=== PATIENT | male | born 1965 | race Caucasian/White ===

== ENCOUNTER 2024-05-05 09:39 | Inpatient (IN) | payer SELFPAY ==
[2024-05-05] VITALS (11 sets, daily range): BP systolic 177–236; BP diastolic 75–128; PULSE 53–60; RESP 18–20; TEMP 36.5–36.7; O2SAT 92–98
--- NOTE | 2024-05-05 10:34 | XRR_ITS ---
PROCEDURE INFORMATION: Exam: XR Chest Exam date and time: 05/05/2024 10:37 AM Age: 58 years old Clinical indication: Other: Edema TECHNIQUE: Imaging protocol: Radiologic exam of the chest. Views: 1 view. COMPARISON: No relevant prior studies available. FINDINGS: Lungs: There are bilateral perihilar and basilar infiltrates in a relatively symmetric distribution. Findings suspicious for pulmonary edema. Pleural spaces: There may be trace pleural effusions. No pneumothorax is identified. Heart/Mediastinum: The heart is enlarged. Suspect retrocardiac hiatal hernia. Bones/joints: Unremarkable. XR/XR chest 1V portable [id number] IMPRESSION: 1. Cardiomegaly with probable mild edema and small pleural effusions. 2. Suspect retrocardiac hiatal hernia.
--- NOTE | 2024-05-05 10:49 | ECG_ITS ---
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 Measurements Intervals [place] Rate: 54 P: -10 WV: 188 QRS: 58 QRSD: 133 T: 55 QT: 445 QTc: 425 Interpretive Statements SINUS BRADYCARDIA WITH OCCASIONAL VENTRICULAR PREMATURE COMPLEXES INTRAVENTRICULAR CONDUCTION DELAY [130+ ms QRS DURATION] ANTEROLATERAL MYOCARDIAL INFARCTION , OF INDETERMINATE AGE Low voltage in limb leads No previous ECG available for comparison Electronically Signed On 05-05-2024 16:51:25 CDT by Telma Ivory M.D. [email or web address]
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
--- NOTE | 2024-05-05 10:57 | USCV_ITS ---
Hector Whitaker Age: 58 Gender: M : 1965 Exam Date: 05/05/2024 11:24 Ordering Phys: Ranulfo Lomeli DO Technologist: NANDA [place]am [place] [facility] [place] Indication: LE Edema and Swelling HISTORY: Lower extremity swelling. Lower extremity edema. PROCEDURES: Venous duplex imaging was performed in bilateral lower extremities. The following venous structures were evaluated: common femoral vein, profunda vein, proximal portion of the greater saphenous vein, superficial femoral vein, and the popliteal vein. In addition, the posterior tibial and peroneal trunk were evaluated. Serial compression, augmentation maneuvers, and spectral Doppler flow evaluation were performed. FINDINGS: Technically limited 2-D Doppler and augmentation and compressibility throughout the lower extremity venous structures. Additional imaging through the proximal calf veins also reveals no thrombus. Limited evaluation of the greater saphenous vein is patent with no thrombus. Subcutaneous edema. CONCLUSIONS No DVT bilateral lower extremities. Dr. Melissa Acuña DO (Electronically Signed) Final Date: 05 May 2024 12:40 S
--- NOTE | 2024-05-05 10:57 | XRR_ITS ---
PROCEDURE INFORMATION: Exam: XR Right Foot Exam date and time: 05/05/2024 11:05 AM Age: 58 years old Clinical indication: Edema; Location not specified; Additional info: Trauma TECHNIQUE: Imaging protocol: Radiologic exam of the right foot. Views: 3 or more views. COMPARISON: No relevant prior studies available. FINDINGS: Bones/joints: There is an old-appearing fracture involving the proximal 2nd metatarsal which appears to involve the joint space. There are degenerative changes with joint space narrowing and small osteophytes involving the midfoot, 1st MTP joint and 1st IP joint. Joint spaces are otherwise relatively well preserved. Soft tissues: There is dorsal soft tissue swelling. Heterotopic ossification is seen within the plantar soft tissues. XR/XR foot RT min 3V* [id number] IMPRESSION: 1. Fracture involving the proximal 2nd metatarsal. However, this fracture appears to be old. Recommend clinical correlation. No additional fractures are noted. 2. Osteoarthritis. 3. Soft tissue swelling.
[2024-05-05] MEDS: hyDRALAzine 20 mg/mL INJ 1 mL 10 MG IVP (11:30)
[2024-05-05] MEDS: FUROsemide 10 mg/mL SDV 4mL 40 MG IVP ×2 (11:32→14:25)
[2024-05-05 12:41] LABS: Basophils # 0.1 10^3/uL (0.0-0.1); Eosinophils # 0.1 10^3/uL (0.0-0.8); Hematocrit 35.2 % (37-53); Lymphocytes % 19.2 %; Mean Corpuscular HGB Conc 31.8 g/dL (30-55); Mean Corpuscular Hemoglobin 29.8 pg (27-33); Mean Corpuscular Volume 93.6 fl (82-101); Mean Platelet Volume 10.8 fL (7.4-10.4); Monocytes # 0.5 10^3/uL (0.2-0.9); Monocytes % 10.3 %; Neutrophils # 3.52 10^3/uL (1.8-7.7); Neutrophils % 68.3 %; Nucleated Red Blood Cells % 0 %; Platelet Count 255 10^3/cmm (157-399); Red Blood Count 3.76 10^6/uL (3.85-5.65); Red Cell Distribution Width 14.6 % (12.1-15.1); White Blood Count 5.15 10^3/uL (3.29-11.43)
[2024-05-05 13:15] LABS: Alanine Aminotransferase 12 U/L (0-41); Albumin Level 2.7 g/dL (3.5-5.2); Alkaline Phosphatase 88 U/L (40-130); Anion Gap 13.7 (5-19); Aspartate Amino Transferase 15 U/L (0-40); Blood Urea Nitrogen 22 mg/dL (8-23); Carbon Dioxide 28 mmol/L (22-29); Chloride 105 mmol/L (98-107); Creatine Phosphokinase 151 U/L (39-308); Globulin 2.6 g/dL (1.3-4.6); Glomerular Filtration Rate 47.7 mL/min (90-130); Glucose 84 mg/dL (65-115); Osmolality Calculated 299 mOsm/kg (285-295); Potassium 3.7 mmol/L (3.5-5.1); Sodium 143 mmol/L (136-145); Total Bilirubin 0.5 mg/dL (0.15-1.2); Total Protein 5.3 g/dL (6.6-8.7)
[2024-05-05 13:42] LABS: NT Pro B Type Natriuretic Pept 45094 pg/mL (0-125)
--- NOTE | 2024-05-05 13:59 | USCV_ITS ---
Hector Whitaker Age: 58 Gender: M : 1965 Exam Date: 05/05/2024 14:52 Ordering Phys: Ranulfo Lomeli DO Technologist: Exam Location: [facility] – [place] Indication: chf BP: 123 / 73 HR: 58 Rhythm: Sinus Technical Quality: Adequate MEASUREMENTS (Male / Female) Normal Values 2D ECHO LV Diastolic Diameter PLAX 5.3 cm 4.2 - 5.9 / 3.9 - 5.3 cm IVS Diastolic Thickness 1.4 cm 0.6 - 1.0 / 0.6 - 0.9 cm IVS Systolic Thickness 2.0 cm LVPW Diastolic Thickness 1.4 cm 0.6 - 1.0 / 0.6 - 0.9 cm LVPW Systolic Thickness 1.9 cm LVOT Diameter 2.2 cm LV Ejection Fraction 2D Teich 63.0 % LV Ejection Fraction MOD 4C 43.6 % LV Ejection Fraction MOD 2C 38.0 % LV Ejection Fraction 2C AL 38.1 % LA Diameter 4.6 cm RA Systolic Volume 4C AL 57.3 ml RA Systolic Volume 4C MOD 57.8 ml Aorta at Sinotubular Diameter 2.7 cm DOPPLER AV Peak Velocity 155.0 cm/s LVOT Peak Velocity 66.0 cm/s AV Area Cont Eq vti 1.9 cm squared AV Area Cont Eq pk 1.6 cm squared MV Area PHT 3.6 cm squared Mitral E to A Ratio 0.8 TV Peak Velocity 157.0 cm/s TR Peak Velocity 173.0 cm/s TR Peak Gradient 12.0 mmHg TV Peak E Velocity 71.0 cm/s Right Atrial Pressure 3.0 mmHg Pulmonary Artery Systolic Pressu 15.0 mmHg PV Peak Velocity 95.0 cm/s FINDINGS Left Ventricle Mild left ventricular hypertrophy. Moderate global hypokinesis. Estimated LVEF 35 to 40%. Right Ventricle Normal right ventricular size and systolic function. Right Atrium Normal right atrial size. Left Atrium Dilated left atrium. Mitral Valve Structurally normal mitral valve. Mild to moderate mitral regurgitation. Aortic Valve Structurally normal trileaflet aortic valve. No aortic valve stenosis. Tricuspid Valve Structurally normal tricuspid valve. Trace tricuspid valve regurgitation. Pulmonic Valve Structurally normal pulmonic valve. Trace pulmonary valve regurgitation. Pericardium Small circumferential pericardial effusion. Aorta Normal size aortic root and proximal ascending aorta. IVC Inferior vena cava not well visualized. CONCLUSIONS Mild left ventricular hypertrophy. Moderate global hypokinesis with estimated LVEF 35 to 40%. Mild to moderate mitral regurgitation. Dilated left atrium. Small circumferential pericardial effusion. Telma Ivory MD (Electronically Signed) Final Date: 05 May 2024 16:03 S
--- NOTE | 2024-05-05 14:00 | US_ITS ---
WS: [id number] RIGHT UPPER QUADRANT ULTRASOUND HISTORY: assess for cirrhosis COMPARISON: None available. Liver: 20.4 cm in length. Liver is enlarged and poorly visualized. There is a large amount of shadowi ng to the liver. There is hepatic steatosis with a small hyperdense mass along the surface of the RIG HT lobe of the liver measuring 2.1 x 1.4 x 1.8 cm. Surface of the liver is slightly irregular. Portal Vein: Normal hepatopetal flow with monophasic waveform. Gallbladder: Normally distended gallbladder with no stones or wall thickening. CBD: 0.4 cm Pancreas: Completely obscured by bowel gas. Right kidney: 13.3 cm in length. Normal size and echogenicity. No hydronephrosis or mass. Aorta and IVC: Not visualized. Very small amount of ascites adjacent to the liver. Small RIGHT pleural effusion. US/US liver [id number] IMPRESSION: 1. Technically limited evaluation of the RIGHT upper quadrant. 2. Negative gallbladder. 3. Small amount of ascites and a small RIGHT pleural effusion. 4. Liver is enlarged with cirrhotic changes. 5. Hyperechoic mass RIGHT lobe of the liver measures 2.1 x 1.4 x 1.8 cm. Most likely is small hemangioma.
--- NOTE | 2024-05-05 14:04 | ECG_ITS ---
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 Measurements Intervals [place] Rate: 55 P: 52 ID: [id number] QRS: -18 QRSD: 134 T: 70 QT: 442 QTc: 426 Interpretive Statements SINUS BRADYCARDIA INTRAVENTRICULAR CONDUCTION DELAY ANTEROSEPTAL MYOCARDIAL INFARCTION , OF INDETERMINATE AGE Compared to ECG 05/05/2024 10:49:00 Ventricular premature complex(es) no longer present Myocardial infarct finding still present Electronically Signed On 05-05-2024 18:06:52 CDT by Telma Ivory M.D. [email or web address]
[2024-05-05] MEDS: enoxaparin 40 mg/0.4 mL Syringe SUBCUT (14:24)
[2024-05-05] MEDS: amlodipine 10 mg Tablet PO (14:25)
[2024-05-05 14:51] LABS: Troponin(5th) Baseline 145 ng/L (0-15)
[2024-05-05 15:17] LABS: Bilirubin Urine Negative (Negative); Blood Urine Trace (Negative); Glucose Urine UA Negative (Normal); Ketones Urine Negative (Negative); Leukocyte Esterase Urine Negative (Negative); Nitrate Urine Negative (Negative); Protein Urine 3+ (Negative); Specific Gravity, Urine 1.012 (1.005-1.030); Urine Appearance Clear (CLEAR); Urine Color Yellow (Yellow); Urobilinogen Urine 0.2 mg/dL (Negative); pH Urine 5.5 (5-7)
--- NOTE | 2024-05-05 15:24 | PC.NURSE ---
This nurse took report from DESIRAE Oliveira in ER at 1524.
[2024-05-05 15:25] LABS: Estmated Average Glucose 143; Hemoglobin A1C 6.6 % (4.0-6.0)
[2024-05-05 15:31] LABS: Chol HDL Ratio 3.67 mg/dL (1.0-5.00); Cholesterol 158 mg/dL (0-200); HDL Cholesterol 43 mg/dL (60-100); LDL Cholesterol Calculated 98 mg/dL (50-129); LDL HDL Ratio 2.28 RATIO (0.00-3.22); Thyroid Stimulating Hormone 16.91 uIU/mL (0.27-4.20); Triglycerides 83 mg/dL (0-150)
[2024-05-05 15:33] LABS: UA Manual Slide Review YES; UA Slide Review UA Slide Review Perf
[2024-05-05 15:36] LABS: Add Urine Culture? No; Add Urine Microscopic? YES; Hyaline Casts Urine 0-4 /lpf; Mucus Urine TRACE /hpf; WBC Urine RARE /hpf (0-5)
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
[2024-05-05 16:41] LABS: Bilirubin Urine Negative (Negative); Blood Urine Trace (Negative); Glucose Urine UA Negative (Normal); Ketones Urine Negative (Negative); Leukocyte Esterase Urine Negative (Negative); Nitrate Urine Negative (Negative); Protein Urine 3+ (Negative); Urine Appearance Clear (CLEAR); Urine Color Yellow (Yellow); Urobilinogen Urine 0.2 mg/dL (Negative); pH Urine 5.5 (5-7)
[2024-05-05 16:59] LABS: UA Manual Slide Review YES; UA Slide Review UA Slide Review Perf
[2024-05-05 17:00] LABS: Add Urine Culture? No; Add Urine Microscopic? YES; Mucus Urine TRACE /hpf; RBC Urine 0-4 /hpf (0-2)
[2024-05-05 19:03] LABS: Troponin 5 2HR 157.7 ng/L (0-15); Troponin 5 2HR Delta 12.7 ABS# (0-10)
--- NOTE | 2024-05-05 20:04 | ECG_ITS ---
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 Measurements Intervals [place] Rate: 56 P: 97 ID: [id number] QRS: -49 QRSD: 129 T: 117 QT: 447 QTc: 433 Interpretive Statements SINUS BRADYCARDIA Left bundle branch block Wilbert-septal myocardial infarction, likely old findings Compared to ECG 05/05/2024 14:12:11 Myocardial infarct finding still present Electronically Signed On 05-06-2024 12:17:26 CDT by Telma Ivory M.D. [id number]
[2024-05-05 21:41] LABS: Troponin 5 6HR 164.2 ng/L (0-15)
[2024-05-05 21:42] LABS: Troponin 5 6HR Delta 19.2 ng/L (0-12)
[2024-05-06] VITALS: BP 173/70; PULSE 55; RESP 17; TEMP 36.8; O2SAT 96
[2024-05-06] MEDS: hyDRALAzine 20 mg/mL INJ 1 mL 10 MG IVP (01:17)
[2024-05-06] MEDS: FUROsemide 10 mg/mL SDV 4mL 40 MG IVP ×2 (01:17→14:24)
[2024-05-06 04:00] VITALS: BP 160/68; PULSE 53; RESP 16; TEMP 36.8; O2SAT 94
[2024-05-06 05:59] LABS: Basophils # 0.1 10^3/uL (0.0-0.1); Basophils % 2.1 %; Eosinophils # 0.2 10^3/uL (0.0-0.8); Eosinophils % 2.8 %; Hematocrit 32.6 % (37-53); Lymphocytes # 1.1 10^3/uL (0.8-4.8); Lymphocytes % 20.5 %; Mean Corpuscular HGB Conc 31.6 g/dL (30-55); Mean Corpuscular Hemoglobin 29.9 pg (27-33); Mean Corpuscular Volume 94.5 fl (82-101); Mean Platelet Volume 11.2 fL (7.4-10.4); Monocytes # 0.7 10^3/uL (0.2-0.9); Monocytes % 12.2 %; Neutrophils # 3.31 10^3/uL (1.8-7.7); Neutrophils % 62.2 %; Nucleated Red Blood Cells % 0 %; Platelet Count 264 10^3/cmm (157-399); Red Blood Count 3.45 10^6/uL (3.85-5.65); Red Cell Distribution Width 14.7 % (12.1-15.1); White Blood Count 5.32 10^3/uL (3.29-11.43)
[2024-05-06 06:25] LABS: Alanine Aminotransferase 11 U/L (0-41); Albumin Level 2.5 g/dL (3.5-5.2); Alkaline Phosphatase 83 U/L (40-130); Anion Gap 10.6 (5-19); Aspartate Amino Transferase 14 U/L (0-40); Blood Urea Nitrogen 23 mg/dL (8-23); Calcium 8.1 mg/dL (8.5-10.5); Carbon Dioxide 31 mmol/L (22-29); Chloride 105 mmol/L (98-107); Creatinine Clr Calc Pharmacy 63.6383; Glomerular Filtration Rate 44.3 mL/min (90-130); Glucose 114 mg/dL (65-115); Osmolality Calculated 301 mOsm/kg (285-295); Potassium 3.6 mmol/L (3.5-5.1); Sodium 143 mmol/L (136-145); Total Bilirubin 0.3 mg/dL (0.15-1.2); Total Protein 4.5 g/dL (6.6-8.7)
[2024-05-06 06:33] LABS: Free T4 Free Thyroxine 0.85 ng/dL (0.82-1.77); T3 Free 1.1 PG/ML (2.0-4.4)
[2024-05-06 07:34] VITALS: BP 160/76; PULSE 56; RESP 17; TEMP 37.3; O2SAT 91
[2024-05-06] MEDS: pantoprazole DR 40 mg Tablet PO (10:05)
[2024-05-06] MEDS: amlodipine 10 mg Tablet PO (10:05)
--- NOTE | 2024-05-06 11:30 | P.PN_ITS ---
Subjective 2 Subjective: patient doing minimally better today. Vitals/I&O/Wt Last Vital Signs Temp 99.1 F 05/06/24 07:34 Pulse 56 L 05/06/24 07:34 Resp 17 05/06/24 07:34 BP 160/76 05/06/24 07:34 Pulse Ox 91 05/06/24 07:34 O2 Del Method Room Air 05/06/24 07:34 05/05/24 05/06/24 05/06/24 22:59 06:59 14:59 Intake Total 480 / 480 240 / 720 240 / 240 Output Total 700 / 700 1650 / 2350 Balance -220 / -220 -1410 / -1630 240 / 240 Weight last 48 hrs Weight 116.148 kg Weight 117.934 kg Physical Exam 2 Narrative: Patient is alert and oriented no acute distress. Patient has diffuse anasarca including upper extremities and chest. Heart is regular distant no loud murmur Lungs decreased breath sounds bilateral lower lung rosenthal. With a few crackles with inspiration Abdomen is distended with fluid no palpable hepatosplenomegaly normal bowel sounds no rebound rigidity or tenderness Extremities lower extremities with +2 pitting edema actually worse in thigh abdomen region upper extremities nonpitting edema Data 05/06/24 05:09 05/06/24 05:09 Other data: Echo shows EF of 35 to 40%, left atrial dilatation, moderate mitral regurgitation, small pericardial effusion A&P Assessment and plan (1) New onset of congestive heart failure: Will need to rule out ischemic congestive heart failure. Consult to cardiology was placed in the computer however I was unable to speak with the cotton seed culler on-call. Will continue to try. Suspect will require cardiac catheterization Otherwise patient will be placed on aspirin BURT inhibitor or statin patient not able to tolerate beta-blockade at this time due to bradycardia. And of course continue diuresis (2) Anasarca: Diuresing Lasix 40 IV twice daily patient with satisfactory diuresis over the last day of 1.6 L will continue. Will evaluate for need for increased dosing or adding other diuretics (3) Fracture of second metatarsal bone of right foot: Patient in splint (4) Hypertension: Will start BURT inhibitor for CHF/hypertension (5) Proteinuria: 24-hour urine being collected (6) Hypercholesterolemia with hypertriglyceridemia: Start statin Plan Patient will require a few midnight for satisfactory diuresis as well as cardiology consult for possible cardiac catheterization. Attestations 2 Medical Necessity Statement*: Patient with new onset congestive heart failure of unknown etiology. Patient requires workup and treatment to avoid further deterioration including arrhythmias sudden cardiac worsening organ failure. Patient will require greater than 2 midnight stay. Coding Level of Care Code Acute Code for g Fwd Diagnoses New onset of congestive heart failure I50.9 Anasarca R60.1 Fracture of second metatarsal bone of right foot S92.321A Hypertension I10 Proteinuria R80.9 Hypercholesterolemia with hypertriglyceridemia E78.2
[2024-05-06 11:45] VITALS: BP 173/82; PULSE 55; RESP 16; TEMP 37.1; O2SAT 96
--- NOTE | 2024-05-06 11:49 | P.CONIM_ITS ---
Providers/Reason For Consult 2 Consulting Physician/Specialty*: Keon Lowe.P.MLily/podiatry Reason for Consult*: Right midfoot fracture Attending Physician: Tuan Suarez DO History of Present Illness History of Present Illness Hector Whitaker is a 58 year old male who sustained an injury to his right foot approximately 2 months ago. He presented to the emergency department with significant lower extremity swelling. Workup revealed new onset congestive heart failure. Further workup of the right lower extremity revealed fracture dislocation of the right foot. In discussing the onset of right foot pain with patient he states that the injury occurred 2 months ago when he was helping his brother change the truck bed onto [employer]. The truck x-ray ended up running over his right foot. He has continued to walk on it over the course of the past couple of months. He has had waxing and waning swelling of the right lower extremity. Podiatry was consulted to establish care and to provide further treatment recommendations. Review of Systems 2 General: Reports: 10 or more systems reviewed and unremarkable except in HPI and below Const: Denies: fever(s), chills or fatigue Eyes: Denies: change in vision ENMT: Denies: sinus pain Card: Denies: chest pain, palpitations or lightheadedness Resp: Denies: dyspnea GI: Denies: abdominal pain, nausea or vomiting Musc: Reports: extremity pain, extremity swelling and limited range of motion; Denies: neck pain or back pain Skin/Breast: Reports: skin swelling Neuro: Denies: numbness in extremities Medications/Allergies Home Medications Medication Instructions Recorded Confirmed Last Taken Type multivitamin with minerals 1 tab PO DAILY 05/05/24 05/05/24 05/04/24 History Allergies Allergy/AdvReac Type Severity Reaction Status Date / Time bee venom protein (honey bee) Allergy ALGY-Swell Verified 05/05/24 11:30 Lip/Tongue/Throat Current Medications Generic Name Dose Route Start Last Admin Trade Name Freq PRN Reason Stop Dose Admin Amlodipine Besylate 10 mg 05/05/24 14:10 05/06/24 10:05 Amlodipine 10 Mg Tablet PO 10 mg DAILY JUJU Administration Enoxaparin Sodium 40 mg 05/05/24 14:00 05/05/24 14:24 Enoxaparin 40 Mg/0.4 Ml Syringe SUBCUT 40 mg Q24H JUJU Administration Furosemide 40 mg 05/05/24 14:00 05/06/24 01:17 Furosemide 10 Mg/Ml Sdv 4ml IVP 40 mg Q12H JUJU Administration Hydralazine HCl 10 mg 05/05/24 15:58 05/06/24 01:17 Hydralazine 20 Mg/Ml Inj 1 Ml IVP 10 mg Q6H PRN Administration SBP > 170 Vitals/I&O/Wt Last Vital Signs Temp 98.8 F 05/06/24 11:45 Pulse 55 L 05/06/24 11:45 Resp 16 05/06/24 11:45 BP 173/82 05/06/24 11:45 Pulse Ox 96 05/06/24 11:45 O2 Del Method Room Air 05/06/24 11:45 05/05/24 05/06/24 05/06/24 22:59 06:59 14:59 Intake Total 480 / 480 240 / 720 240 / 240 Output Total 700 / 700 1650 / 2350 Balance -220 / -220 -1410 / -1630 240 / 240 Weight last 48 hrs Weight 256 lb 1 oz Weight 260 lb Physical Exam 2 Narrative: BELOW IS A FOCUSED LOWER EXTREMITY EXAM GENERAL: A&O x 3 VASCULAR: DP/PT pulses palpable 2/4 with CFT intact, <3seconds to distal digits. Edema bilateral lower extremities DERMATOLOGICAL: Skin turgor and temperature is within normal limits. No interdigital maceration noted. MUSCULOSKELETAL: No pain with palpation of right midfoot or Lisfranc interval. NEUROLOGICAL: Neurological sensation to the affected foot and ankle is present through L4-S1 dermatomes with no hyper/hypoesthesias, negative Tinel or Valleix's sign IMAGING: X-ray right foot taken the emergency department person interpreted by me which shows fracture at the base of the first and second metatarsals as well as to the proximal phalanx of the right hallux. CT scan shows Lisfranc fracture dislocation with 4.5 mm lateral displacement of second metatarsal. Data 05/06/24 05:09 05/07/24 11:14 A&P Assessment and plan (1) Lisfranc dislocation: Plan -Right foot Lisfranc fracture dislocation, nonunion, nonpainful -Labs and vitals reviewed -VSS -Diet: Okay for diet -Pain Mgmt: Per primary team -Weight bearing: Weightbearing as tolerated to right foot in cam boot -Discharge plan: Patient is okay to discharge home from podiatry standpoint, weightbearing as tolerated to right foot in cam boot. Recommend follow-up within 1 week of discharge to discuss treatment options further in the outpatient setting. Coding Level of Care Code Acute Code for Chg Fwd Diagnoses Lisfranc dislocation S93.326A
--- NOTE | 2024-05-06 11:51 | CT_ITS ---
WS: [id number] CT RIGHT FOOT, NONCONTRAST HISTORY: Lisfranc Injury Technique: All CT scans at [facility] use at least one of these dose optimization techniques: automated exposure control; mA and/or kV adjustment per patient size (includes targeted exams where dose is matched to clinical indication); or iterative reconstruction. DLP: 145.18 mGy.cm COMPARISON: Radiograph 05/05/2024 Complex fracture mid RIGHT foot. Margins of the fracture are becoming sclerotic but nonunion at sever al locations. Fractures are centered at the first and second tarsal metatarsal articulations. First cuneiform: Partially healed fracture involving the articular surface with the first metatarsal. There are small osseous fragments in the first tarsal metatarsal joint. The alignment with the first metatarsal appears appropriate. First metatarsal: Fracture with erosion involving the proximal lateral articular surface. There are s mall osseous densities and fragments between the proximal first and second metatarsals. There is an a dditional osseous fragment more medially at the level of the joint space which is well-corticated. I believe the donor site is from the metatarsal. Intermediate cuneiform: Fracture involving the distal articular surface. Fragments are well-corticate d. There are multiple fragments surrounding the articular surface. The second metatarsal is just slig htly laterally displaced with respect to the second cuneiform and the first metatarsal. Second metatarsal: Nonhealed fracture with displacement through the proximal second metatarsal. Fract ure is displaced laterally 4.5 mm. There is widening of the first metatarsophalangeal articulation. No additional fractures are identified. Mild degenerative changes at the first IP joint. Extensive ca llus formation noted extending along the second metatarsal metaphysis into the diaphysis. Moderate amount of soft tissue edema surrounding the foot. CT/CT foot RT wo con* [id number] IMPRESSION: 1. 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 Fractures are c entered at the first and second cuneiforms and the first and second metatarsals . 2. Lateral displacement of the second metatarsal by 4.5 mm. Consistent with Li sfranc injury. 3. There are multiple osseous fragments surrounding the first and second cunei forms and the proximal first and second metatarsals. Displaced fragments of bon e extend along the plantar and dorsal, medial and lateral surfaces.
[2024-05-06] MEDS: lisinopril 10 mg Tablet PO (12:33)
[2024-05-06] MEDS: enoxaparin 40 mg/0.4 mL Syringe SUBCUT (14:25)
[2024-05-06 16:00] VITALS: BP 171/71; PULSE 52; RESP 18; TEMP 37.1; O2SAT 98
[2024-05-06 19:16] LABS: Urine Total Protein 159.4 mg/dL (0-150)
[2024-05-06 19:19] LABS: Total Volume, Urine 2300 mL; Urine Total Protein 24 Hour 3666.2 mg/24hr (0-150)
[2024-05-06 19:56] VITALS: BP 134/90; PULSE 54; RESP 18; TEMP 36.6; O2SAT 96
[2024-05-06] MEDS: atorvastatin 40 mg Tablet 80 MG PO (20:02)
[2024-05-07] VITALS (9 sets, daily range): BP systolic 153–197; BP diastolic 64–97; PULSE 50–74; RESP 10–17; TEMP 36.6–36.9; O2SAT 92–96
[2024-05-07] MEDS: FUROsemide 10 mg/mL SDV 4mL 40 MG IVP ×2 (01:16→11:23)
--- NOTE | 2024-05-07 09:00 | P.CONIM_ITS ---
Providers/Reason For Consult 2 Consulting Physician/Specialty*: Cardiology/Dr. Ivory Reason for Consult*: Heart failure/markedly volume overload Requesting Physician: Dr. Suarez Attending Physician: Tuan Suarez DO History of Present Illness History of Present Illness Hector Whitaker is a 58 year old male with a long history of hypertension, with a couple month history of gradually swelling of both lower extremities and worsening shortness of air. On admission he found to be in anasarca with markedly volume overloaded. His blood pressure poorly controlled. Clinically no signs symptom suggestive of angina. He has not orthopnea and PND symptoms. Symptoms have worsened in the last week or so. No acute ischemic EKG changes. Echo showed LVEF around 40% with global hypokinesis. Mildly elevated, flat, cardiac troponin is likely secondary to heart failure rather than acute coronary syndrome. Since admission patient has been started on diuretics with reasonable response. Note his blood pressure somewhat still remains elevated in spite of multiple medications and he still has a significant volume overload. Review of Systems 2 Narrative: Detailed 10 point systemic review revealed gradual worsening of his swelling of both lower extremities as well as upper extremities, around his belly at least for the last 2 months. Denies any resting or exertional chest pain. He had an injury to his right foot about 2 months ago and most of his symptoms have started afterwards. Rest of the systemic review unremarkable except for as mentioned above in the history of present illness. Medications/Allergies Home Medications Medication Instructions Recorded Confirmed Last Taken Type multivitamin with minerals 1 tab PO DAILY 05/05/24 05/05/24 05/04/24 History Allergies Allergy/AdvReac Type Severity Reaction Status Date / Time bee venom protein (honey bee) Allergy ALGY-Swell Verified 05/05/24 11:30 Lip/Tongue/Throat Current Medications Generic Name Dose Route Start Last Admin Trade Name Freq PRN Reason Stop Dose Admin Amlodipine Besylate 10 mg 05/05/24 14:10 05/06/24 10:05 Amlodipine 10 Mg Tablet PO 10 mg DAILY JUJU Administration Atorvastatin Calcium 80 mg 05/06/24 21:00 05/06/24 20:02 Atorvastatin 40 Mg Tablet PO 80 mg BEDTIME JUJU Administration Enoxaparin Sodium 40 mg 05/05/24 14:00 05/06/24 14:25 Enoxaparin 40 Mg/0.4 Ml Syringe SUBCUT 40 mg Q24H JUJU Administration Furosemide 40 mg 05/05/24 14:00 05/07/24 01:16 Furosemide 10 Mg/Ml Sdv 4ml IVP 40 mg Q12H JUJU Administration Hydralazine HCl 10 mg 05/05/24 15:58 05/06/24 01:17 Hydralazine 20 Mg/Ml Inj 1 Ml IVP 10 mg Q6H PRN Administration SBP > 170 Lisinopril 10 mg 05/06/24 11:25 05/06/24 12:33 Lisinopril 10 Mg Tablet PO 10 mg DAILY JUJU Administration Vitals/I&O/Wt Last Vital Signs Temp 97.9 F 05/07/24 07:45 Pulse 53 L 05/07/24 07:45 Resp 17 05/07/24 07:45 BP 157/81 05/07/24 07:45 Pulse Ox 94 05/07/24 07:45 O2 Del Method Room Air 05/07/24 07:45 05/06/24 05/07/24 05/07/24 22:59 06:59 14:59 Intake Total 240 / 840 240 / 240 Output Total 800 / 800 300 / 1100 500 / 500 Balance -560 / 40 -300 / -260 -260 / -260 Weight last 48 hrs Weight 262 lb Weight 256 lb 1 oz Weight 260 lb Physical Exam 2 Narrative: Patient is laying in his bed with head and raised at 60 degrees. He is not in any respiratory distress at rest. Const: COMMON NORMALS: no acute distress, patient oriented x3 and alert O THER: Overweight and with marked swelling of upper and lower extremities. HENMT: OTHER: Normal Eye: OTHER: Grossly normal Chest: COMMONS NORMALS: normal inspection of the chest OTHER: No tenderness across chest. There is an pitting edema on the back of his lower chest. Resp: OTHER: Air entry is reduced at the bases bilaterally. No added sounds. Cardio: OTHER: Difficult to assess jugular venous pulsation, normal first and second heart sounds. No added sounds. GI: OTHER: Abdomen is obese however soft nontender. There is pitting edema on the lateral abdominal olivia. Bowel sounds audible normal. Extremity: OTHER: Bilateral pitting edema up to thighs 2+ at least. Difficult to palpate the pulses. Neuro: COMMON NORMALS: patient oriented x3 SENSORIUM/ORIENTATION: Yes alert OTHER: Grossly intact. Patient moves all 4 limbs. Skin: OTHER: Warm and dry. Data 05/06/24 05:09 05/06/24 05:09 A&P Assessment and plan (1) Anasarca: 58-year-old male patient with a long history of poorly controlled hypertension now with markedly volume overload, congestive heart failure with an LVEF of 40%. Clinically no angina. Significantly volume overload, due to combination of low EF and uncontrolled hypertension. Recommendation: 1. IV Lasix infusion to start with a 10 mg/h 2. IV nitro to control blood pressure as well as to improve renal flow for the diuresis. 3. Adjust blood pressure medication as per renal profile. (2) Hypertension: (3) CHF (congestive heart failure): Coding Level of Care Code 80832 Diagnoses Anasarca R60.1 Hypertension I10 CHF (congestive heart failure) I50.9 Time Spent (min) 30
[2024-05-07] MEDS: aspirin 81 mg EC Tablet PO (10:22)
[2024-05-07] MEDS: amlodipine 10 mg Tablet PO (10:22)
[2024-05-07] MEDS: lisinopril 10 mg Tablet PO (10:22)
--- NOTE | 2024-05-07 11:13 | P.PN_ITS ---
Subjective 2 Subjective: No significant change in fluid overload symptoms. However feels better after conversation with brother and daughter as below Vitals/I&O/Wt Last Vital Signs Temp 98.4 F 05/07/24 10:45 Pulse 50 L 05/07/24 10:45 Resp 12 05/07/24 10:45 BP 197/97 05/07/24 10:45 Pulse Ox 95 05/07/24 10:45 O2 Del Method Room Air 05/07/24 10:45 05/06/24 05/07/24 05/07/24 22:59 06:59 14:59 Intake Total 240 / 840 240 / 240 Output Total 800 / 800 300 / 1100 500 / 500 Balance -560 / 40 -300 / -260 -260 / -260 Weight last 48 hrs Weight 118.841 kg Weight 116.148 kg Physical Exam 2 Narrative: Patient is alert and oriented no acute distress. Patient has diffuse anasarca including upper extremities and chest. Heart is regular distant no loud murmur Lungs decreased breath sounds bilateral lower lung rosenthal. With a few crackles with inspiration Abdomen is distended with fluid no palpable hepatosplenomegaly normal bowel sounds no rebound rigidity or tenderness Extremities lower extremities with +2 pitting edema actually worse in thigh abdomen region upper extremities nonpitting edema Data 05/06/24 05:09 05/06/24 05:09 A&P Assessment and plan (1) New onset of congestive heart failure: Discussed with cardiology. Will moved to cardiac stepdown unit for nitro and insulin drips to assist with diuresis Follow BMP and magnesium and replace potassium and magnesium as needed. Greatly appreciate cardiology assistance. When clinically improved and able to tolerate patient require ischemic workup. Continue aspirin BURT inhibitor statin. Patient unable to tolerate tolerate beta-blockade at this time due to bradycardia (2) Anasarca: As above (3) Fracture of second metatarsal bone of right foot: Patient in splint. Dr. Sanjay daley. Will require surgical intervention once clinically stable. Qualifiers: Encounter type: subsequent encounter Fracture type: closed (4) Hypertension: BURT inhibitor for CHF/hypertension. Anticipate hypertension improving with diuresis. Qualifiers: Hypertension type: primary hypertension Qualified Code(s): I10 - Essential (primary) hypertension (5) Proteinuria: 24-hour urine collected Qualifiers: Proteinuria type: persistent Qualified Code(s): R80.1 - Persistent proteinuria, unspecified (6) Hypercholesterolemia with hypertriglyceridemia: On statin Plan Spoke with patient, brother and daughter via FaceTime. Explained to them the patient's current diagnosis and plan of care. All questions answered they are satisfied and pleased that patient is getting the help he needs. Suggest dietary consult early next week in preparation for discharge. He will also require new heart failure teaching Attestations 2 Medical Necessity Statement*: Patient requires continued hospitalization greater than 2 midnights for aggressive diuresis. With aggressive diagnostic diuresis close monitoring of electrolytes and adequate replacement necessary. Patient will not absorb oral diuretics at this time due to the severity of his fluid retention/anasarca. Coding Level of Care Code Acute Code for g Fwd Diagnoses New onset of congestive heart failure I50.9 Anasarca R60.1 Fracture of second metatarsal bone of right foot S92.321A Encounter type: subsequent encounter Fracture type: closed Primary hypertension I10 Hypertension type: primary hypertension Persistent proteinuria R80.1 Proteinuria type: persistent Hypercholesterolemia with hypertriglyceridemia E78.2
[2024-05-07] MEDS: FUROsemide 100 MG in sodium chloride 0.9% 40 ML IV ×2 (11:30→18:05)
[2024-05-07 11:37] LABS: Anion Gap 9.4 (5-19); Blood Urea Nitrogen 22 mg/dL (8-23); Calcium 7.7 mg/dL (8.5-10.5); Carbon Dioxide 33 mmol/L (22-29); Chloride 104 mmol/L (98-107); Glomerular Filtration Rate 41.3 mL/min (90-130); Glucose 124 mg/dL (65-115); Magnesium 1.7 mg/dL (1.7-2.3); Osmolality Calculated 301 mOsm/kg (285-295); Potassium 3.4 mmol/L (3.5-5.1); Sodium 143 mmol/L (136-145)
[2024-05-07] MEDS: nitroglycerin drip 50 MG/250 ML PREMIX IV (11:38)
[2024-05-07] MEDS: potassium chloride ER 20 mEq Tablet 40 MEQ PO ×2 (12:23→17:30)
[2024-05-07] MEDS: enoxaparin 40 mg/0.4 mL Syringe SUBCUT (13:34)
[2024-05-07] MEDS: atorvastatin 40 mg Tablet 80 MG PO (20:15)
[2024-05-07] MEDS: hyDRALAzine 20 mg/mL INJ 1 mL 10 MG IVP (20:16)
[2024-05-08] VITALS (55 sets, daily range): BP systolic 145–192; BP diastolic 66–100; PULSE 50–60; RESP 1–25; TEMP 36.6–36.9; O2SAT 72–98
[2024-05-08] MEDS: FUROsemide 100 MG in sodium chloride 0.9% 40 ML IV ×3 (03:39→23:08)
[2024-05-08 05:23] LABS: Anion Gap 8.6 (5-19); Blood Urea Nitrogen 22 mg/dL (8-23); Calcium 7.8 mg/dL (8.5-10.5); Carbon Dioxide 34 mmol/L (22-29); Chloride 105 mmol/L (98-107); Creatinine Clr Calc Pharmacy 56.3588; Glomerular Filtration Rate 38.7 mL/min (90-130); Glucose 103 mg/dL (65-115); Magnesium 1.7 mg/dL (1.7-2.3); Osmolality Calculated 302 mOsm/kg (285-295); Potassium 3.6 mmol/L (3.5-5.1); Sodium 144 mmol/L (136-145)
[2024-05-08] MEDS: hyDRALAzine 20 mg/mL INJ 1 mL 10 MG IVP (05:39)
[2024-05-08] MEDS: lisinopril 10 mg Tablet PO (08:17)
[2024-05-08] MEDS: amlodipine 10 mg Tablet PO (08:17)
[2024-05-08] MEDS: potassium chloride ER 20 mEq Tablet 40 MEQ PO ×2 (08:17→18:18)
[2024-05-08] MEDS: aspirin 81 mg EC Tablet PO (08:17)
--- NOTE | 2024-05-08 10:11 | USR_ITS ---
PROCEDURE INFORMATION: Exam: US Duplex Artery and Vein of the Abdominal and/or Reproductive Organs, Complete Kidneys Exam date and time: 05/08/2024 5:11 PM Age: 58 years old Clinical indication: Screening exam; Assess for renal artery stenosis; Additional info: Assess for renal artery stenosis, also assess for hydro nephrosis. Nurse to hold lunch. Will scan this TECHNIQUE: Imaging protocol: Real-time duplex ultrasound scan of the arterial and venous flow with color Doppler flow and spectral waveform analysis with image documentation. Complete duplex exam focused on the kidneys. Duplex exam was performed to evaluate for vascular conditions. COMPARISON: US liver [id number] 05/05/2024 4:18 PM FINDINGS: Right kidney: Normal. No hydronephrosis. No masses. The right kidney measures 13.5 x 6.7 x 6.4 cm with cortical thickness of 1.5 cm. Right renal artery: Normal duplex of the renal artery. Duplex waveforms are within normal limits. No hemodynamically significant stenosis. Right interlobar/arcuate arteries: Resistive indices are within normal. Right renal vein: Patent Left kidney: Simple cyst in the lower pole of the left kidney measuring 2.6 cm.. No hydronephrosis. No masses. The left kidney measures 13.4 x 5.9 x 4.9 cm with cortical thickness of 2.6 cm. Left renal artery: Normal duplex of the renal artery. Duplex waveforms are within normal limits. No hemodynamically significant stenosis. Left interlobar/arcuate arteries: Resistive indices are within normal. Left renal vein: Patent US/CV renal doppler [id number] IMPRESSION: No hydronephrosis or hemodynamically significant renal artery stenosis.
--- NOTE | 2024-05-08 10:26 | P.PN_ITS ---
Subjective 2 Subjective: I saw Mr. Whitaker this morning, reviewed progress from last 24 hours. He is clinically better, less short of breath. Currently he is on IV Lasix infusion 10 mg/h along with nitrates. So far very good urine output. However still he is significantly volume overloaded. No anginal symptoms. His blood pressure is stable. I note his creatinine has jumped from 1.6 to 1.8 which was expected with diuresis. His blood pressure is better Medications: Medication Review Details: Reviewed his current medications. Vitals/I&O/Wt Last Vital Signs Temp 98.2 F 05/08/24 07:19 Pulse 56 L 05/08/24 07:19 Resp 17 05/08/24 07:19 BP 158/75 05/08/24 07:19 Pulse Ox 95 05/08/24 07:19 O2 Del Method Nasal Cannula 05/08/24 07:19 O2 Flow Rate 3 05/08/24 07:19 05/07/24 05/08/24 05/08/24 22:59 06:59 14:59 Intake Total 99.250 / 351.300 108.958 / 460.258 120 / 120 Output Total 1475 / 3500 1300 / 4800 600 / 600 Balance -1375.750 / -3148.700 -1191.042 / -4339.742 -480 / -480 Weight last 48 hrs Weight 254 lb 3.2 oz Weight 262 lb Physical Exam 2 Narrative: Patient is laying comfortably on the bed. Less short of breath today. Const: COMMON NORMALS: no acute distress, patient oriented x3 and alert HENMT: OTHER: Unremarkable. Resp: OTHER: Still somewhat decreased air entry at the bases bilaterally with minimal rales at the bases. Cardio: OTHER: Difficult to assess JVD. Normal first and second heart sounds. No added sounds. GI: OTHER: Distended abdomen, soft nontender bowel sounds audible. Extremity: NARRATIVE EXTREMITY EXAM: Bilateral 1-2+ pitting edema. Neuro: COMMON NORMALS: patient oriented x3 SENSORIUM/ORIENTATION: Yes alert Skin: OTHER: Skin warm and dry. Data 05/06/24 05:09 05/08/24 03:11 A&P Assessment and plan (1) CHF (congestive heart failure): 58-year-old male patient with heart failure, markedly volume overload, now on IV Lasix infusion as well as IV nitrates. Significantly improved clinical status with a less short of air and improved blood pressure. Noted his creatinine has slightly bumped up to 1.8. His potassium is still within normal range. Plan: To continue current dose of Lasix and nitrates for next 24 hours and closely observe exact urine output. I have discontinued lisinopril because of creeping up of creatinine level. To continue rest of medications. (2) Anasarca: Attestations 2 Medical Necessity Statement*: Marked volume overload, congestive heart failure requiring intravenous IV Lasix infusion as well as intravenous nitrates. Coding Level of Care Code 77869 Diagnoses CHF (congestive heart failure) I50.9 Anasarca R60.1 Time Spent (min) 20
--- NOTE | 2024-05-08 10:29 | P.PN_ITS ---
Subjective 2 Subjective: nitro gtt at 30mcg/min. Lasix gtt at 10mg/hr . Current blood pressure 158/75. Medications: Reviewed: Yes Vitals/I&O/Wt Last Vital Signs Temp 98.2 F 05/08/24 07:19 Pulse 56 L 05/08/24 07:19 Resp 17 05/08/24 07:19 BP 158/75 05/08/24 07:19 Pulse Ox 95 05/08/24 07:19 O2 Del Method Nasal Cannula 05/08/24 07:19 O2 Flow Rate 3 05/08/24 07:19 05/07/24 05/08/24 05/08/24 22:59 06:59 14:59 Intake Total 99.250 / 351.300 108.958 / 460.258 120 / 120 Output Total 1475 / 3500 1300 / 4800 600 / 600 Balance -1375.750 / -3148.700 -1191.042 / -4339.742 -480 / -480 Weight last 48 hrs Weight 115.303 kg Weight 118.841 kg Physical Exam 2 Narrative: General: No acute distress, AO x3 HEENT: PERRLA, pupils bilaterally equal and reactive, pallors not present Chest: Normal vesicular breath sounds, no added sounds, equal good air entry bilaterally CVS: S1-S2 regular, no murmurs, no tachycardia, no gallops, no rubs Abdomen: Soft, nontender, no organomegaly, bowel sounds present Neuro: No focal deficits, no facial deformity, AO x3, power 5/5 in all limbs Extremities: Gross anasarca. 3+ pitting edema involving bilateral lower extremities, scrotum, abdomen and bilateral upper extremities. Data 05/06/24 05:09 05/08/24 03:11 A&P Assessment and plan (1) Anasarca: 58-year-old male with no known prior medical history presenting today with anasarca. Differentials are broad at this time, concerned mainly about CHF being foremost. Chest x-ray shows cardiomegaly and bilateral pleural effusions. Check echocardiogram for cardiomyopathy Check EKG and troponin series Lasix 40 mg IV every 12 hours Closely monitor urine output and renal function with diuresis. Other possible etiologies include liver cirrhosis, will check ultrasound of the liver. Check UA to assess for proteinuria. Creatinine currently at 1.5 Check TSH for Rosa's (2) Fracture of second metatarsal bone of right foot: Consult with podiatry. Appreciate recommendations. Qualifiers: Encounter type: subsequent encounter Fracture type: closed Plan Plan for today May 08, 2024. Review of chart for the past 2 days. Currently patient is on nitro gtt. and Lasix gtt. per cardiology recommendations. EF of 35 to 40% with moderate global hypokinesia. Net -4.5 L last 24 hours; net -6.7 L since admission. Currently on 3 L/min supplemental O2 via nasal cannula. Creatinine trending up to 1.8 today. Reviewed UA. Microscopic hematuria present. 24-hour urine protein at 3600 mg, spot total protein at 159. Serum protein at 4.5, serum albumin at 2.5. In the presence of nephrotic range proteinuria, low serum albumin, concerned about nephrotic syndrome with a primary underlying process here. Will consult nephrology for recommendations. ? Kidney biopsy ? Obtain serum HIV, SPEP, UPEP, hepatitis B and C screen, EVY panel, RPR. Obtain renal Doppler to assess for renal artery stenosis, renal vein thrombosis and hydronephrosis. Currently on nitro drip, blood pressure 158/75. Start hydralazine 25 mg p.o. 3 times daily and attempt to wean off nitroglycerin infusion. Will plan to add add Imdur next depending on blood pressure response. Change DVT prophylaxis from Lovenox 40 mg daily to heparin 5000 subcutaneously every 12 hours. Foot surgery would need to be deferred until his fluid status is optimized. Attestations 2 Medical Necessity Statement*: Continued admission for diuresis IV, nitroglycerin infusion, nephrology evaluation Coding Level of Care Code Acute Code for Chg Fwd High MDM includes number and complexity of problems actively addressed during encounter, amount and/or complexity of data reviewed/ordered and described risk of complication, morbidity or mortality of management as documented Diagnoses Anasarca R60.1 Fracture of second metatarsal bone of right foot S92.321A Encounter type: subsequent encounter Fracture type: closed
[2024-05-08] MEDS: heparin 5,000 unit/mL INJ 1 mL 5000 UNIT SUBCUT ×2 (10:44→23:09)
[2024-05-08] MEDS: hyDRALAzine 25 mg Tablet PO ×3 (10:44→20:45)
--- NOTE | 2024-05-08 10:59 | P.CONIM_ITS ---
Providers/Reason For Consult 2 Consulting Physician/Specialty*: Shaun Stiles MD, telemetry nephrology Reason for Consult*: Nephrotic syndrome, renal insufficiency Requesting Physician: Sindi Childress MD Attending Physician: Sindi Childress MD History of Present Illness History of Present Illness Hector Whitaker is a 58 year old male who was admitted to the hospital in May 05, 2024. At that time he presented with anasarca has been developing over the last few weeks he also had severe hypertension of 220/110 the patient has not seen doctors over the last 5 to 6 years and does not know much of his past medical history. The patient was started on Lasix. He was then started on BURT inhibitor, which has been held as his creatinine is elevated. He was seen by podiatry for a right foot Lisfranc fracture dislocation, nonunion, nonpainful. He was seen by cardiology Dr. Guillen his echo revealed an EF of 40% with global hypokinesis. Cardiology start IV Lasix drip with IV nitro yesterday May 07, 2024. This patient remains on a nitro drip and Lasix drip blood pressure is improving however the patient has nephrotic range proteinuria and elevated creatinine renal's been called to see the patient Review of Systems 2 Narrative: Swollen, weak dyspnea exertion shortness of breath leg edema scrotal edema nausea poor appetite itching leg pain. Rest review systems within normal limits. Medications/Allergies Home Medications Medication Instructions Recorded Confirmed Last Taken Type multivitamin with minerals 1 tab PO DAILY 05/05/24 05/05/24 05/04/24 History Allergies Allergy/AdvReac Type Severity Reaction Status Date / Time bee venom protein (honey bee) Allergy ALGY-Swell Verified 05/05/24 11:30 Lip/Tongue/Throat Current Medications Generic Name Dose Route Start Last Admin Trade Name Freq PRN Reason Stop Dose Admin Amlodipine Besylate 10 mg 05/05/24 14:10 05/08/24 08:17 Amlodipine 10 Mg Tablet PO 10 mg DAILY JUJU Administration Aspirin 81 mg 05/07/24 09:00 05/08/24 08:17 Aspirin 81 Mg Ec Tablet PO 81 mg DAILY JUJU Administration Atorvastatin Calcium 80 mg 05/06/24 21:00 05/07/24 20:15 Atorvastatin 40 Mg Tablet PO 80 mg BEDTIME JUJU Administration Heparin Sodium (Porcine) 5,000 unit 05/08/24 10:45 05/08/24 10:44 Heparin 5,000 Unit/Ml Inj 1 Ml SUBCUT 5,000 unit Q12H JUJU Administration Hydralazine HCl 25 mg 05/08/24 10:10 05/08/24 10:44 Hydralazine 25 Mg Tablet PO 25 mg TID JUJU Administration Nitroglycerin/Dextrose 50 mg in 250 mls @ 0 mls/hr 05/07/24 11:00 05/08/24 05:42 Nitroglycerin Drip IV 30 mcg/min .Q0M JUJU 9 mls/hr Titration Protocol Per Protocol Furosemide 100 mg/ Sodium 50 mls @ 5 mls/hr 05/07/24 17:00 05/08/24 03:39 Chloride IV 10 mg/hr .Q10H JUJU 5 mls/hr Administration Protocol Potassium Chloride 40 meq 05/07/24 11:55 05/08/24 08:17 Potassium Chloride Er 20 Meq Tablet PO 40 meq BID JUJU Administration Vitals/I&O/Wt Last Vital Signs Temp 98.2 F 05/08/24 07:19 Pulse 56 L 05/08/24 07:19 Resp 17 05/08/24 07:19 BP 158/75 05/08/24 07:19 Pulse Ox 95 05/08/24 07:19 O2 Del Method Nasal Cannula 05/08/24 07:19 O2 Flow Rate 3 05/08/24 07:19 05/07/24 05/08/24 05/08/24 22:59 06:59 14:59 Intake Total 99.250 / 351.300 108.958 / 460.258 120 / 120 Output Total 1475 / 3500 1300 / 4800 600 / 600 Balance -1375.750 / -3148.700 -1191.042 / -4339.742 -480 / -480 Weight last 48 hrs Weight 115.303 kg Weight 118.841 kg Physical Exam 2 Narrative: Obese man swollen no apparent respiratory distress vital signs noted. HEENT normocephalic atraumatic Neck is supple lungs clear Heart regular positive S1-S2 Abdomen is soft positive bowel sounds. Extremities bilateral severe edema neuro awake alert oriented x 3 severe edema Data 05/06/24 05:09 05/08/24 03:11 A&P Assessment and plan (1) Proteinuria: The patient is a 58-year-old gentleman who did not have significant medical follow-up. The patient hurt his foot a few weeks ago now comes in with a foot fracture and severe hypertension anasarca 3.6 g of proteinuria creatinine of 1.5 to 1.8 mg/dL and an EF of 35 to 40% 1. CKD with proteinuria. This can all be secondary to hypertension however it is a higher degree of proteinuria than I would expect. I will order renal ultrasound with renal artery duplex. 2. Will workup for proteinuria. Please note LDLs under 100 which does go against nephrotic syndrome however he has hypoalbuminemia. Will send EVY [id number] DNA HIV hepatitis serologies. Will also send serum protein electrophoresis serum immunofixation and free light chains. Hepatitis serologies were sent HIV was sent. Free light chains were sent, EVY serum protein electrophoresis ordered [id number] DNA ordered. 3. Please send plasma renin and Fab level Will start spironolactone. 4. Case discussed in detail with Dr. Ivory. The patient will need full cardiac evaluation. And he agrees will need BURT inhibitor and ARB however for now he is concerned that he wants to diurese the patient. As patient CO2 is 34 potassium is 2.6 will not add Zaroxolyn. 5. Patient creatinine 1.5 on admission to question if this was his baseline creatinine or acute kidney injury. 6. Normal venous Doppler. Case discussed in detail with Drs. Ivory and Fior Qualifiers: Proteinuria type: persistent Qualified Code(s): R80.1 - Persistent proteinuria, unspecified Plan see above Consult Attestations 2 Medical Necessity Statement: edema, HTN, anasarca, htn, ef 35-40%, Renal insufficiency Time Spent in Patient Care: Greater than 35 minutes (>than 50% of time spent in counselling and/or direct pt care on unit) . Coding Level of Care Code Acute Code for [facility] Diagnoses Persistent proteinuria R80.1 Proteinuria type: persistent
[2024-05-08 11:22] LABS: HIV 1 & 2 Antibody Non-Reactive (Non-Reactiv); HIV 1 & 2 Antigen Non-Reactive (Non-Reactiv)
[2024-05-08 11:46] LABS: Hepatitis A Antibody IgM Non-Reactive (Nonreactive); Hepatitis B Core AB, Total Non-Reactive (Nonreactive); Hepatitis B Surface AB < 3.5 (11.5-1000); Hepatitis B Surface Antigen Non-Reactive (Nonreactive); Hepatitis C Virus Antibody Non-Reactive (Nonreactive)
[2024-05-08 11:52] LABS: Iron 33 ug/dL (59-158)
[2024-05-08] MEDS: spironolactone 25 mg Tablet PO (13:03)
[2024-05-08 13:23] LABS: Potassium, Radom Urine 19 mmol/L; Urine Random Chloride 132 mmol/L; Urine Random Sodium 134 mmol/L
[2024-05-08] MEDS: nitroglycerin drip 50 MG/250 ML PREMIX 9 MG IV (19:47)
[2024-05-08] MEDS: atorvastatin 40 mg Tablet 80 MG PO (20:45)
[2024-05-09] VITALS (11 sets, daily range): BP systolic 150–185; BP diastolic 69–86; PULSE 54–66; RESP 6–18; TEMP 36.6–37.1; O2SAT 91–99
[2024-05-09 02:48] LABS: Basophils # 0.1 10^3/uL (0.0-0.1); Basophils % 0.9 %; Eosinophils # 0.2 10^3/uL (0.0-0.8); Eosinophils % 4.3 %; Hematocrit 28.6 % (37-53); Lymphocytes % 18.7 %; Mean Corpuscular HGB Conc 31.1 g/dL (30-55); Mean Corpuscular Hemoglobin 29.2 pg (27-33); Mean Corpuscular Volume 93.8 fl (82-101); Mean Platelet Volume 11.1 fL (7.4-10.4); Monocytes # 0.6 10^3/uL (0.2-0.9); Monocytes % 11.6 %; Neutrophils # 3.43 10^3/uL (1.8-7.7); Neutrophils % 64.3 %; Nucleated Red Blood Cells % 0 %; Platelet Count 233 10^3/cmm (157-399); Red Blood Count 3.05 10^6/uL (3.85-5.65); Red Cell Distribution Width 15.1 % (12.1-15.1); White Blood Count 5.34 10^3/uL (3.29-11.43)
[2024-05-09 03:08] LABS: Calcium 7.9 mg/dL (8.5-10.5); Parathyroid Hormone 69.1 pg/mL (15-65)
[2024-05-09 03:28] LABS: Alanine Aminotransferase 10 U/L (0-41); Albumin Level 2.3 g/dL (3.5-5.2); Alkaline Phosphatase 68 U/L (40-130); Anion Gap 10.3 (5-19); Aspartate Amino Transferase 15 U/L (0-40); Blood Urea Nitrogen 23 mg/dL (8-23); Calcium 7.7 mg/dL (8.5-10.5); Carbon Dioxide 34 mmol/L (22-29); Chloride 105 mmol/L (98-107); Globulin 2.3 g/dL (1.3-4.6); Glomerular Filtration Rate 41.3 mL/min (90-130); Glucose 101 mg/dL (65-115); Magnesium 1.6 mg/dL (1.7-2.3); Osmolality Calculated 304 mOsm/kg (285-295); Phosphorus 3.4 mg/dL (2.5-4.5); Potassium 4.3 mmol/L (3.5-5.1); Sodium 145 mmol/L (136-145); Total Bilirubin 0.2 mg/dL (0.15-1.2); Total Protein 4.6 g/dL (6.6-8.7)
[2024-05-09 04:08] LABS: Ferritin 80 ng/mL (30-400); Total Iron Binding Capacity 166 mcg/dl; Unsaturated Iron Binding 138 ug/dL (112-347)
[2024-05-09 04:13] LABS: 25 Hydroxy Vitamin D 8 ng/mL (30-100); Iron 28 ug/dL (59-158); Percent Saturation 16.8 % (20-50)
[2024-05-09] MEDS: levothyroxine 50 mcg Tablet PO (05:18)
[2024-05-09 05:55] LABS: PROTEIN, TOTAL 4.5 g/dL (6.1-8.1)
--- NOTE | 2024-05-09 07:28 | P.PN_ITS ---
Subjective 2 Subjective: The patient was seen and examined. The patient is feeling better creased edema. States he is having good urine output. Per I's and O's he is put out 3.55 L once again 960 mL. He denies nausea vomiting itching or cramps or diarrhea or headaches decreased shortness of breath decreased chest pain. Medications: Reviewed: Yes Medication Review Details: Current Medications Acetaminophen (Acetaminophen 325 Mg Tablet) 650 mg PO Q6H PRN PRN Reason: Mild/Mod Pain Or Temp >/= 101 Aspirin (Aspirin 81 Mg Ec Tablet) 81 mg PO DAILY [facility] Last Admin: 05/08/24 08:17 Dose: 81 mg Atorvastatin Calcium (Atorvastatin 40 Mg Tablet) 80 mg PO BEDTIME JUJU Last Admin: 05/08/24 20:45 Dose: 80 mg Heparin Sodium (Porcine) (Heparin 5,000 Unit/Ml Inj 1 Ml) 5,000 unit SUBCUT Q12H JUJU Last Admin: 05/08/24 23:09 Dose: 5,000 unit Hydralazine HCl (Hydralazine 25 Mg Tablet) 25 mg PO TID JUJU Last Admin: 05/08/24 20:45 Dose: 25 mg Nitroglycerin/Dextrose (Nitroglycerin Drip) 50 mg in 250 mls @ 0 mls/hr IV .Q0M [facility]; Protocol Last Titration: 05/09/24 06:21 Dose: 30 mcg/min, 9 mls/hr Furosemide 100 mg/ Sodium (Chloride) 50 mls @ 5 mls/hr IV .Q10H [facility]; Protocol Last Admin: 05/08/24 23:08 Dose: 10 mg/hr, 5 mls/hr Levothyroxine Sodium (Levothyroxine 50 Mcg Tablet) 50 mcg PO QAM [facility] Last Admin: 05/09/24 05:18 Dose: 50 mcg Ondansetron HCl (Ondansetron 2 Mg/Ml Sdv 2 Ml) 4 mg IVP Q8H PRN PRN Reason: vomiting, or N/V if npo Potassium Chloride (Potassium Chloride Er 20 Meq Tablet) 40 meq PO BID [facility] Last Admin: 05/08/24 18:18 Dose: 40 meq Spironolactone (Spironolactone 25 Mg Tablet) 25 mg PO DAILY [facility] Last Admin: 05/08/24 13:03 Dose: 25 mg Vitals/I&O/Wt Last Vital Signs Temp 98.4 F 05/09/24 04:00 Pulse 58 L 05/09/24 06:00 Resp 10 L 05/09/24 04:00 BP 164/76 05/09/24 04:00 Pulse Ox 97 05/09/24 04:00 O2 Del Method Room Air 05/09/24 04:00 O2 Flow Rate 3 05/08/24 15:19 05/08/24 05/09/24 05/09/24 23:59 06:59 14:59 Intake Total Output Total Balance Weight last 48 hrs Weight 112.945 kg Weight 115.303 kg Physical Exam 2 Narrative: Obese man, diffuse edema. no apparent respiratory distress vital signs noted. HEENT normocephalic atraumatic Neck is supple lungs clear Heart regular positive S1-S2 Abdomen is soft positive bowel sounds. Extremities bilateral severe edema neuro awake alert oriented x 3 Improving 4 extremity edema Data 05/09/24 02:16 05/09/24 02:16 A&P Assessment and plan (1) Proteinuria: The patient is a 58-year-old gentleman who did not have significant medical follow-up. The patient hurt his foot a few weeks ago now comes in with a foot fracture and severe hypertension anasarca 3.6 g of proteinuria creatinine of 1.5 to 1.8 mg/dL and an EF of 35 to 40% 1. CKD with proteinuria. This can all be secondary to hypertension however it is a higher degree of proteinuria than I would expect. Renal ultrasound right kidney 13.5 cm right renal artery normal duplex left kidney 13.4 cm also normal renal artery duplex. Patient does have some cyst. Given hypertension proteinuria and CKD will restart BURT inhibitor will use captopril. 2. Can decrease oral potassium. 3. Anemia is worsening even with diuresis. Iron saturation 17% ferritin is 80. Patient will need a GI evaluation. Will start IV iron. I am concerned for possibility of malignancy. 4. Replace magnesium 5. Replace vitamin D. 6. Patient is on levothyroxine at this time. 7. PTH of 69 should improve once we replace vitamin D. 8. Serologies pending. 9. Hypertension await renin and Fab level. 10. Heart failure EF of 35 to 40% diffuse reduced EF. Case discussed in detail with Dr. Ivory. The patient will need full cardiac evaluation. Once he is stable. 11. Metabolic alkalosis from diuresis. Patient may benefit from acetazolamide and decrease furosemide 12. Patient creatinine 1.5 on admission to question if this was his baseline creatinine or acute kidney injury. 13. Normal venous Doppler. The patient was seen and examined using audiovisual equipment with the aid of a nurse. The patient consented to telehealth visit. Qualifiers: Proteinuria type: persistent Qualified Code(s): R80.1 - Persistent proteinuria, unspecified Plan see above Attestations 2 Medical Necessity Statement*: Hypertension volume overload anemia CKD heart failure reduced EF Time Spent in Patient Care: 16 - 35 minutes (>than 50% of time sp ent in counselling and/or direct pt care on unit) . Coding Level of Care Code Acute Code for Chg Fwd Diagnoses Persistent proteinuria R80.1 Proteinuria type: persistent
[2024-05-09] MEDS: ergocalciferol (vitamin D2) 50,000 Unit Capsule 50000 UNIT PO (08:17)
[2024-05-09] MEDS: aspirin 81 mg EC Tablet PO (08:18)
[2024-05-09] MEDS: lisinopril 5 mg Tablet PO (08:18)
[2024-05-09] MEDS: spironolactone 25 mg Tablet PO (08:18)
[2024-05-09] MEDS: hyDRALAzine 25 mg Tablet PO (08:18)
[2024-05-09] MEDS: potassium chloride ER 20 mEq Tablet 40 MEQ PO (08:18)
[2024-05-09] MEDS: magnesium sulfate premix 1 GM/100 ML PIGGYBACK IV (09:52)
[2024-05-09] MEDS: FUROsemide 100 MG in sodium chloride 0.9% 40 ML IV (10:06)
[2024-05-09] MEDS: ferric gluconate 125 MG in sodium chloride 0.9% (100 ml) 100 ML 110 MG IV (10:53)
[2024-05-09] MEDS: heparin 5,000 unit/mL INJ 1 mL 5000 UNIT SUBCUT ×2 (10:53→23:36)
[2024-05-09] MEDS: FUROsemide 10 mg/mL SDV 4mL 40 MG IVP ×2 (11:23→23:35)
--- NOTE | 2024-05-09 14:04 | PC.NURSE ---
Patient ambulated in the hallway, 300 feet.
[2024-05-09] MEDS: hyDRALAzine 25 mg Tablet 50 MG PO ×2 (15:14→20:17)
--- NOTE | 2024-05-09 16:22 | P.PN_ITS ---
Subjective 2 Subjective: Patient continues to clinically improved. His edema is much improved over day of admission. He is net negative approximately 10 L since admission. Creatinine is stable today. He feels better, wants to get out of bed and attempt to walk. Medications: Reviewed: Yes Medication Review Details: Current Medications Acetaminophen (Acetaminophen 325 Mg Tablet) 650 mg PO Q6H PRN PRN Reason: Mild/Mod Pain Or Temp >/= 101 Aspirin (Aspirin 81 Mg Ec Tablet) 81 mg PO DAILY [facility] Last Admin: 05/08/24 08:17 Dose: 81 mg Atorvastatin Calcium (Atorvastatin 40 Mg Tablet) 80 mg PO BEDTIME JUJU Last Admin: 05/08/24 20:45 Dose: 80 mg Heparin Sodium (Porcine) (Heparin 5,000 Unit/Ml Inj 1 Ml) 5,000 unit SUBCUT Q12H JUJU Last Admin: 05/08/24 23:09 Dose: 5,000 unit Hydralazine HCl (Hydralazine 25 Mg Tablet) 25 mg PO TID [facility] Last Admin: 05/08/24 20:45 Dose: 25 mg Nitroglycerin/Dextrose (Nitroglycerin Drip) 50 mg in 250 mls @ 0 mls/hr IV .Q0M [facility]; Protocol Last Titration: 05/09/24 06:21 Dose: 30 mcg/min, 9 mls/hr Furosemide 100 mg/ Sodium (Chloride) 50 mls @ 5 mls/hr IV .Q10H [facility]; Protocol Last Admin: 05/08/24 23:08 Dose: 10 mg/hr, 5 mls/hr Levothyroxine Sodium (Levothyroxine 50 Mcg Tablet) 50 mcg PO QAM [facility] Last Admin: 05/09/24 05:18 Dose: 50 mcg Ondansetron HCl (Ondansetron 2 Mg/Ml Sdv 2 Ml) 4 mg IVP Q8H PRN PRN Reason: vomiting, or N/V if npo Potassium Chloride (Potassium Chloride Er 20 Meq Tablet) 40 meq PO BID [facility] Last Admin: 05/08/24 18:18 Dose: 40 meq Spironolactone (Spironolactone 25 Mg Tablet) 25 mg PO DAILY [facility] Last Admin: 05/08/24 13:03 Dose: 25 mg Vitals/I&O/Wt Last Vital Signs Temp 97.9 F 05/09/24 07:34 Pulse 58 L 05/09/24 14:00 Resp 14 05/09/24 11:03 BP 174/86 05/09/24 15:15 Pulse Ox 93 05/09/24 11:03 O2 Del Method Nasal Cannula 05/09/24 11:03 O2 Flow Rate 3 05/08/24 15:19 05/09/24 05/09/24 05/09/24 06:59 14:59 22:59 Intake Total 669.85 / 669.85 Output Total 1800 / 1800 Balance -1130.15 / -1130.15 Weight last 48 hrs Weight 112.945 kg Weight 115.303 kg Physical Exam 2 Narrative: General: No acute distress, AO x3 HEENT: PERRLA, pupils bilaterally equal and reactive, pallors not present Chest: Normal vesicular breath sounds, no added sounds, equal good air entry bilaterally CVS: S1-S2 regular, no murmurs, no tachycardia, no gallops, no rubs Abdomen: Soft, nontender, no organomegaly, bowel sounds present Neuro: No focal deficits, no facial deformity, AO x3, power 5/5 in all limbs Extremities: Generalized anasarca much improved compared to day of admission. Data 05/09/24 02:16 05/09/24 02:16 A&P Assessment and plan (1) Anasarca: 58-year-old male with no known prior medical history presenting today with anasarca. Differentials are broad at this time, concerned mainly about CHF being foremost. Chest x-ray shows cardiomegaly and bilateral pleural effusions. Check echocardiogram for cardiomyopathy Check EKG and troponin series Lasix 40 mg IV every 12 hours Closely monitor urine output and renal function with diuresis. Other possible etiologies include liver cirrhosis, will check ultrasound of the liver. Check UA to assess for proteinuria. Creatinine currently at 1.5 Check TSH for Rosa's (2) Fracture of second metatarsal bone of right foot: Consult with podiatry. Appreciate recommendations. Qualifiers: Encounter type: subsequent encounter Fracture type: closed Plan Plan for today May 08, 2024. Review of chart for the past 2 days. Currently patient is on nitro gtt. and Lasix gtt. per cardiology recommendations. EF of 35 to 40% with moderate global hypokinesia. Net -4.5 L last 24 hours; net -6.7 L since admission. Currently on 3 L/min supplemental O2 via nasal cannula. Creatinine trending up to 1.8 today. Reviewed UA. Microscopic hematuria present. 24-hour urine protein at 3600 mg, spot total protein at 159. Serum protein at 4.5, serum albumin at 2.5. In the presence of nephrotic range proteinuria, low serum albumin, concerned about nephrotic syndrome with a primary underlying process here. Will consult nephrology for recommendations. ? Kidney biopsy ? Obtain serum HIV, SPEP, UPEP, hepatitis B and C screen, EVY panel, RPR. Obtain renal Doppler to assess for renal artery stenosis, renal vein thrombosis and hydronephrosis. Currently on nitro drip, blood pressure 158/75. Start hydralazine 25 mg p.o. 3 times daily and attempt to wean off nitroglycerin infusion. Will plan to add add Imdur next depending on blood pressure response. Change DVT prophylaxis from Lovenox 40 mg daily to heparin 5000 subcutaneously every 12 hours. Foot surgery would need to be deferred until his fluid status is optimized. May 09, 2024 Patient is clinically improving. Net -10 L since admission. Discontinue Lasix drip. Transition to Lasix 40 mg IV every 12 hours. Monitor urine output, creatinine with this change. If continues to diurese well can likely be transition to oral diuretics over the next 24 to 48 hours. Discontinue nitroglycerin infusion. Increase hydralazine to 50 mg 3 times daily from 25 mg 3 times daily. Amlodipine discontinued per nephrology recommendations. Started instead on lisinopril 5 mg daily. Started Aldactone 25 mg p.o. daily. Goal to titrate lisinopril up as much as tolerated per creatinine. Creatinine is stable today at 1.7. Perhaps this may be patient's baseline. Check FOBT given anemia. Received iron infusion today. Pending EVY profile, aldosterone, ASO, SPEP UPEP kappa lambda ratio. Unable to add beta-blockers due to sinus bradycardia Attestations 2 Medical Necessity Statement*: Continued need for IV diuresis. Adjustment of antihypertensive regimen. Coding Level of Care Code Acute Code for Chg Fwd High MDM includes number and complexity of problems actively addressed during encounter, amount and/or complexity of data reviewed/ordered and described risk of complication, morbidity or mortality of management as documented Diagnoses Anasarca R60.1 Fracture of second metatarsal bone of right foot S92.321A Encounter type: subsequent encounter Fracture type: closed
[2024-05-09] MEDS: atorvastatin 40 mg Tablet 80 MG PO (20:17)
[2024-05-10] VITALS (14 sets, daily range): BP systolic 149–191; BP diastolic 67–84; PULSE 57–77; RESP 10–27; TEMP 36.6–37.1; O2SAT 85–100
[2024-05-10 03:11] LABS: Basophils # 0.1 10^3/uL (0.0-0.1); Basophils % 0.8 %; Eosinophils # 0.2 10^3/uL (0.0-0.8); Eosinophils % 3.4 %; Hematocrit 31.1 % (37-53); Lymphocytes # 0.8 10^3/uL (0.8-4.8); Lymphocytes % 12.8 %; Mean Corpuscular HGB Conc 30.5 g/dL (30-55); Mean Corpuscular Hemoglobin 28.9 pg (27-33); Mean Corpuscular Volume 94.5 fl (82-101); Mean Platelet Volume 11.3 fL (7.4-10.4); Monocytes # 0.7 10^3/uL (0.2-0.9); Monocytes % 10.8 %; Neutrophils # 4.73 10^3/uL (1.8-7.7); Nucleated Red Blood Cells % 0 %; Platelet Count 245 10^3/cmm (157-399); Red Blood Count 3.29 10^6/uL (3.85-5.65); Red Cell Distribution Width 15.1 % (12.1-15.1); White Blood Count 6.56 10^3/uL (3.29-11.43)
[2024-05-10 03:54] LABS: Alanine Aminotransferase 11 U/L (0-41); Albumin Level 2.5 g/dL (3.5-5.2); Alkaline Phosphatase 73 U/L (40-130); Anion Gap 10.5 (5-19); Aspartate Amino Transferase 15 U/L (0-40); Blood Urea Nitrogen 23 mg/dL (8-23); Carbon Dioxide 35 mmol/L (22-29); Chloride 102 mmol/L (98-107); Creatinine Clr Calc Pharmacy 59.0575; Globulin 2.4 g/dL (1.3-4.6); Glomerular Filtration Rate 41.3 mL/min (90-130); Glucose 106 mg/dL (65-115); Magnesium 1.7 mg/dL (1.7-2.3); Osmolality Calculated 300 mOsm/kg (285-295); Phosphorus 3.3 mg/dL (2.5-4.5); Potassium 4.5 mmol/L (3.5-5.1); Sodium 143 mmol/L (136-145); Total Bilirubin 0.3 mg/dL (0.15-1.2); Total Protein 4.9 g/dL (6.6-8.7)
[2024-05-10] MEDS: levothyroxine 50 mcg Tablet PO (05:26)
--- NOTE | 2024-05-10 07:35 | P.PN_ITS ---
Subjective 2 Subjective: swollen, sob. rest of ROS reviewed and no change Medications: Reviewed: Yes Medication Review Details: Current Medications Acetaminophen (Acetaminophen 325 Mg Tablet) 650 mg PO Q6H PRN PRN Reason: Mild/Mod Pain Or Temp >/= 101 Aspirin (Aspirin 81 Mg Ec Tablet) 81 mg PO DAILY [facility] Last Admin: 05/09/24 08:18 Dose: 81 mg Atorvastatin Calcium (Atorvastatin 40 Mg Tablet) 80 mg PO BEDTIME [facility] Last Admin: 05/09/24 20:17 Dose: 80 mg Ergocalciferol (Ergocalciferol (Vitamin D2) 50,000 Unit Capsule) 50,000 unit PO Q7D [facility] Last Admin: 05/09/24 08:17 Dose: 50,000 unit Furosemide (Furosemide 10 Mg/Ml Sdv 4ml) 40 mg IVP Q12H [facility] Last Admin: 05/09/24 23:35 Dose: 40 mg Heparin Sodium (Porcine) (Heparin 5,000 Unit/Ml Inj 1 Ml) 5,000 unit SUBCUT Q12H [facility] Last Admin: 05/09/24 23:36 Dose: 5,000 unit Hydralazine HCl (Hydralazine 25 Mg Tablet) 50 mg PO TID [facility] Last Admin: 05/09/24 20:17 Dose: 50 mg Ferric Sodium Gluconate 125 mg (/ Sodium Chloride) 110 mls @ 110 mls/hr IV Q24H [facility] Stop: 05/16/24 11:59 Last Infusion: 05/09/24 12:03 Dose: Infused Levothyroxine Sodium (Levothyroxine 50 Mcg Tablet) 50 mcg PO QAM [facility] Last Admin: 05/10/24 05:26 Dose: 50 mcg Lisinopril (Lisinopril 5 Mg Tablet) 5 mg PO DAILY [facility] Last Admin: 05/09/24 08:18 Dose: 5 mg Ondansetron HCl (Ondansetron 2 Mg/Ml Sdv 2 Ml) 4 mg IVP Q8H PRN PRN Reason: vomiting, or N/V if npo Potassium Chloride (Potassium Chloride Er 20 Meq Tablet) 40 meq PO DAILY [facility] Last Admin: 05/09/24 08:18 Dose: 40 meq Spironolactone (Spironolactone 25 Mg Tablet) 25 mg PO DAILY [facility] Last Admin: 05/09/24 08:18 Dose: 25 mg Vitals/I&O/Wt Last Vital Signs Temp 97.9 F 05/10/24 07:15 Pulse 57 L 05/10/24 07:15 Resp 12 05/10/24 07:15 BP 159/75 05/10/24 07:15 Pulse Ox 98 05/10/24 07:15 O2 Del Method Nasal Cannula 05/10/24 07:15 O2 Flow Rate 3 05/08/24 15:19 05/09/24 05/10/24 05/10/24 22:59 06:59 14:59 Intake Total 392.925 / 1062.775 Output Total 600 / 2400 1850 / 4250 Balance -207.075 / -1337.225 -1850 / -3187.225 Weight last 48 hrs Weight 106.005 kg Weight 112.945 kg Physical Exam 2 Narrative: Obese man, diffuse edema. no apparent respiratory distress vital signs noted. HEENT normocephalic atraumatic Neck is supple lungs clear Heart regular positive S1-S2 Abdomen is soft positive bowel sounds. Extremities bilateral 2+ edema neuro awake alert oriented x 3 Data 05/10/24 02:18 05/10/24 02:18 A&P Assessment and plan (1) Proteinuria: The patient is a 58-year-old gentleman who did not have significant medical follow-up. The patient hurt his foot a few weeks ago now comes in with a foot fracture and severe hypertension anasarca 3.6 g of proteinuria creatinine of 1.5 to 1.8 mg/dL and an EF of 35 to 40% - I am concerned that he has BEVERLEY- may benefit from BiPAP at night 1. CKD with proteinuria. This can all be secondary to hypertension however it is a higher degree of proteinuria than I would expect. Renal ultrasound right kidney 13.5 cm right renal artery normal duplex left kidney 13.4 cm also normal renal artery duplex. Patient does have some cyst. Given hypertension proteinuria and CKD will restart BURT inhibitor will use captopril. 2. anasarca remains- would consider keeping another day. decrease oral potassium as inc burt-i and aldactone and decrease furosemide -will need close outpt renal f/u and likely a renal biopsy 3. Anemia - Iron saturation 17% ferritin is 80. Patient will need a GI evaluation. I started IV iron. I am concerned for possibility of malignancy. 4. Replace magnesium 5. Replace vitamin D. PTH of 69 should improve once we replace vitamin D. 6. Patient is on levothyroxine at this time. 7. Serologies pending. 8. Hypertension await renin and Fab level. cont burt-i 9. Heart failure EF of 35 to 40% diffuse reduced EF. Case discussed in detail with Dr. Ivory. The patient will need full cardiac evaluation. Once he is stable.- for now burt-i/ aldactone HR already 57 10. Metabolic alkalosis from diuresis. Patient may benefit from acetazolamide and decrease furosemide 11. Patient creatinine 1.5 on admission to question if this was his baseline creatinine or acute kidney injury. 12. Normal venous Doppler. 13. hypothyroidism- replace w/ levothyroxine and monitor tsh every 4 weeks The patient was seen and examined using audiovisual equipment with the aide of a nurse. The patient consented to telehealth visit. Qualifiers: Proteinuria type: persistent Qualified Code(s): R80.1 - Persistent proteinuria, unspecified Plan see above Attestations 2 Medical Necessity Statement*: jignesh / ckd stage 3b/ proteinuria, htn, HFrEF, Q BEVERLEY Time Spent in Patient Care: 16 - 35 minutes (>than 50% of time sp ent in counselling and/or direct pt care on unit) . Coding Level of Care Code Acute Code for Chg Fwd Diagnoses Persistent proteinuria R80.1 Proteinuria type: persistent
[2024-05-10] MEDS: spironolactone 25 mg Tablet PO (08:21)
[2024-05-10] MEDS: potassium chloride ER 20 mEq Tablet PO (08:21)
[2024-05-10] MEDS: lisinopril 5 mg Tablet PO ×2 (08:21→17:12)
[2024-05-10] MEDS: aspirin 81 mg EC Tablet PO (08:21)
[2024-05-10] MEDS: hyDRALAzine 25 mg Tablet 50 MG PO ×3 (08:21→20:58)
--- NOTE | 2024-05-10 08:26 | P.PN_ITS ---
Subjective 2 Subjective: Seen this morning. Patient resting comfortably in bed. Discussed with him regarding the need for kidney biopsy as an outpatient. Patient would prefer going to [place] for that. Discussed with him the plan going forward. Nephrology has adjusted medications today. No acute events overnight. Vitals/I&O/Wt Last Vital Signs Temp 97.9 F 05/10/24 07:15 Pulse 57 L 05/10/24 07:15 Resp 12 05/10/24 07:15 BP 159/75 05/10/24 07:15 Pulse Ox 98 05/10/24 07:15 O2 Del Method Nasal Cannula 05/10/24 07:15 O2 Flow Rate 3 05/08/24 15:19 05/09/24 05/10/24 05/10/24 22:59 06:59 14:59 Intake Total 392.925 / 1062.775 Output Total 600 / 2400 1850 / 4250 Balance -207.075 / -1337.225 -1850 / -3187.225 Weight last 48 hrs Weight 106.005 kg Weight 112.945 kg Physical Exam 2 Narrative: General: No acute distress, AO x3, diffuse edema present. Generalized anasarca. HEENT: PERRLA, pupils bilaterally equal and reactive, pallors not present Chest: Normal vesicular breath sounds, no added sounds, equal good air entry bilaterally CVS: S1-S2 regular, no murmurs, no tachycardia, no gallops, no rubs Abdomen: Soft, nontender, no organomegaly, bowel sounds present Neuro: No focal deficits. Extremities: Generalized anasarca Data 05/10/24 02:18 05/10/24 02:18 A&P Assessment and plan (1) Anasarca: 58-year-old male with no known prior medical history presenting today with anasarca. Differentials are broad at this time, concerned mainly about CHF being foremost. Chest x-ray shows cardiomegaly and bilateral pleural effusions. Check echocardiogram for cardiomyopathy Check EKG and troponin series Lasix 40 mg IV every 12 hours Closely monitor urine output and renal function with diuresis. Other possible etiologies include liver cirrhosis, will check ultrasound of the liver. Check UA to assess for proteinuria. Creatinine currently at 1.5 Check TSH for Rosa's (2) Fracture of second metatarsal bone of right foot: Consult with podiatry. Appreciate recommendations. Qualifiers: Encounter type: subsequent encounter Fracture type: closed Plan Plan for today May 08, 2024. Review of chart for the past 2 days. Currently patient is on nitro gtt. and Lasix gtt. per cardiology recommendations. EF of 35 to 40% with moderate global hypokinesia. Net -4.5 L last 24 hours; net -6.7 L since admission. Currently on 3 L/min supplemental O2 via nasal cannula. Creatinine trending up to 1.8 today. Reviewed UA. Microscopic hematuria present. 24-hour urine protein at 3600 mg, spot total protein at 159. Serum protein at 4.5, serum albumin at 2.5. In the presence of nephrotic range proteinuria, low serum albumin, concerned about nephrotic syndrome with a primary underlying process here. Will consult nephrology for recommendations. ? Kidney biopsy ? Obtain serum HIV, SPEP, UPEP, hepatitis B and C screen, EVY panel, RPR. Obtain renal Doppler to assess for renal artery stenosis, renal vein thrombosis and hydronephrosis. Currently on nitro drip, blood pressure 158/75. Start hydralazine 25 mg p.o. 3 times daily and attempt to wean off nitroglycerin infusion. Will plan to add add Imdur next depending on blood pressure response. Change DVT prophylaxis from Lovenox 40 mg daily to heparin 5000 subcutaneously every 12 hours. Foot surgery would need to be deferred until his fluid status is optimized. May 09, 2024 Patient is clinically improving. Net -10 L since admission. Discontinue Lasix drip. Transition to Lasix 40 mg IV every 12 hours. Monitor urine output, creatinine with this change. If continues to diurese well can likely be transition to oral diuretics over the next 24 to 48 hours. Discontinue nitroglycerin infusion. Increase hydralazine to 50 mg 3 times daily from 25 mg 3 times daily. Amlodipine discontinued per nephrology recommendations. Started instead on lisinopril 5 mg daily. Started Aldactone 25 mg p.o. daily. Goal to titrate lisinopril up as much as tolerated per creatinine. Creatinine is stable today at 1.7. Perhaps this may be patient's baseline. Check FOBT given anemia. Received iron infusion today. Pending EVY profile, aldosterone, ASO, SPEP UPEP kappa lambda ratio. Unable to add beta-blockers due to sinus bradycardia 05/10/2024 ? Clinically improving. -12 L since admission ? Continue Lasix 40 IV twice daily. Monitor urine output, creatinine 1.7 today. Stable from yesterday. ? Plan to switch to oral diuretics in a.m. versus in 48 hours. ? Continue hydralazine 50 3 times daily. Lisinopril adjusted to 5 twice daily today. Aldactone 25 daily added. ? FOBT pending at this time. ? Pending any profile aldosterone ASO SPEP UPEP kappa lambda ratio. ? Keep off of beta-blockers secondary to bradycardia. ? Continue to watch electrolytes. Attestations 2 Medical Necessity Statement*: Continued need for IV diuresis. Adjustment of antihypertensive regimen. Diagnoses Anasarca R60.1 Fracture of second metatarsal bone of right foot S92.321A Encounter type: subsequent encounter Fracture type: closed
[2024-05-10] MEDS: heparin 5,000 unit/mL INJ 1 mL 5000 UNIT SUBCUT ×2 (11:44→22:45)
[2024-05-10] MEDS: FUROsemide 10 mg/mL SDV 4mL 40 MG IVP ×2 (11:45→22:45)
[2024-05-10] MEDS: ferric gluconate 125 MG in sodium chloride 0.9% (100 ml) 100 ML 110 MG IV (11:45)
[2024-05-10 12:34] LABS: ALBUMIN 2.1 g/dL (3.8-4.8); ALPHA 1 GLOBULIN 0.3 g/dL (0.2-0.3); ALPHA 2 GLOBULIN 0.6 g/dL (0.5-0.9); BETA 1 GLOBULIN 0.3 g/dL (0.4-0.6); BETA 2 GLOBULIN 0.5 g/dL (0.2-0.5); GAMMA GLOBULIN 0.8 g/dL (0.8-1.7)
[2024-05-10 13:05] LABS: RPR w(Moniotor) w/REFL Titer NON-REACTIVE (NON-REACTIVE)
[2024-05-10 13:19] LABS: COMPLEMENT, TOTAL (CH50) 42 U/mL (31-60)
[2024-05-10 15:30] LABS: Creatinine, Random Urine 43 mg/dL (20-320); Protein, Total, Random 96 mg/dL (5-25); Protein/Creatinine Ratio 2.233 (0.025-0.148); Protein/Creatinine Ratio 2233 mg/g creat (25-148)
[2024-05-10 16:15] LABS: Anti-Double Strand DNA AB 4 IU/mL
[2024-05-10] MEDS: atorvastatin 40 mg Tablet 80 MG PO (20:58)
[2024-05-11] VITALS (28 sets, daily range): BP systolic 138–177; BP diastolic 67–82; PULSE 56–76; RESP 9–22; TEMP 36.6–37.2; O2SAT 77–99
[2024-05-11 03:30] LABS: Basophils % 0.6 %; Eosinophils # 0.2 10^3/uL (0.0-0.8); Eosinophils % 3.7 %; Hematocrit 29.7 % (37-53); Lymphocytes # 0.9 10^3/uL (0.8-4.8); Lymphocytes % 13.6 %; Mean Corpuscular Hemoglobin 29.2 pg (27-33); Mean Corpuscular Volume 94.3 fl (82-101); Mean Platelet Volume 10.9 fL (7.4-10.4); Monocytes # 0.7 10^3/uL (0.2-0.9); Monocytes % 11.4 %; Neutrophils # 4.41 10^3/uL (1.8-7.7); Neutrophils % 70.5 %; Nucleated Red Blood Cells % 0 %; Platelet Count 223 10^3/cmm (157-399); Red Blood Count 3.15 10^6/uL (3.85-5.65); Red Cell Distribution Width 15.2 % (12.1-15.1); White Blood Count 6.25 10^3/uL (3.29-11.43)
[2024-05-11 03:58] LABS: Alanine Aminotransferase 15 U/L (0-41); Albumin Level 2.5 g/dL (3.5-5.2); Alkaline Phosphatase 72 U/L (40-130); Anion Gap 10.3 (5-19); Aspartate Amino Transferase 20 U/L (0-40); Blood Urea Nitrogen 23 mg/dL (8-23); Carbon Dioxide 36 mmol/L (22-29); Chloride 99 mmol/L (98-107); Creatinine Clr Calc Pharmacy 57.2431; Globulin 2.4 g/dL (1.3-4.6); Glomerular Filtration Rate 41.3 mL/min (90-130); Glucose 103 mg/dL (65-115); Magnesium 1.7 mg/dL (1.7-2.3); Osmolality Calculated 296 mOsm/kg (285-295); Phosphorus 3.6 mg/dL (2.5-4.5); Potassium 4.3 mmol/L (3.5-5.1); Sodium 141 mmol/L (136-145); Total Bilirubin 0.3 mg/dL (0.15-1.2); Total Protein 4.9 g/dL (6.6-8.7)
[2024-05-11 04:35] LABS: COMPLEMENT COMPONENT C3C 107 mg/dL (82-185); COMPLEMENT COMPONENT C4C 23 mg/dL (15-53)
[2024-05-11] MEDS: levothyroxine 50 mcg Tablet PO (05:43)
[2024-05-11 06:05] LABS: Anti-streptolysin O 28 IU/mL (<200)
[2024-05-11] MEDS: lisinopril 5 mg Tablet PO (08:12)
[2024-05-11] MEDS: spironolactone 25 mg Tablet PO (08:12)
[2024-05-11] MEDS: hyDRALAzine 25 mg Tablet 50 MG PO (08:12)
[2024-05-11] MEDS: aspirin 81 mg EC Tablet PO (08:12)
[2024-05-11] MEDS: potassium chloride ER 20 mEq Tablet PO (08:12)
[2024-05-11 10:44] LABS: C.Diff PCR (Lab) NEGATIVE (Negative)
--- NOTE | 2024-05-11 11:01 | P.PN_ITS ---
Subjective 2 Subjective: + constant diarrhea.+ 4 + edema on arms, 2-3+ edema on legs Medications: Reviewed: Yes Medication Review Details: Current Medications Acetaminophen (Acetaminophen 325 Mg Tablet) 650 mg PO Q6H PRN PRN Reason: Mild/Mod Pain Or Temp >/= 101 Aspirin (Aspirin 81 Mg Ec Tablet) 81 mg PO DAILY [facility] Last Admin: 05/11/24 08:12 Dose: 81 mg Atorvastatin Calcium (Atorvastatin 40 Mg Tablet) 80 mg PO BEDTIME [facility] Last Admin: 05/10/24 20:58 Dose: 80 mg Ergocalciferol (Ergocalciferol (Vitamin D2) 50,000 Unit Capsule) 50,000 unit PO Q7D [facility] Last Admin: 05/09/24 08:17 Dose: 50,000 unit Furosemide (Furosemide 10 Mg/Ml Sdv 4ml) 40 mg IVP Q12H [facility] Last Admin: 05/10/24 22:45 Dose: 40 mg Heparin Sodium (Porcine) (Heparin 5,000 Unit/Ml Inj 1 Ml) 5,000 unit SUBCUT Q12H [facility] Last Admin: 05/10/24 22:45 Dose: 5,000 unit Hydralazine HCl (Hydralazine 25 Mg Tablet) 50 mg PO TID [facility] Last Admin: 05/11/24 08:12 Dose: 50 mg Ferric Sodium Gluconate 125 mg (/ Sodium Chloride) 110 mls @ 110 mls/hr IV Q24H [facility] Stop: 05/16/24 11:59 Last Infusion: 05/10/24 12:43 Dose: Infused Levothyroxine Sodium (Levothyroxine 50 Mcg Tablet) 50 mcg PO QAM [facility] Last Admin: 05/11/24 05:43 Dose: 50 mcg Lisinopril (Lisinopril 5 Mg Tablet) 5 mg PO BID [facility] Last Admin: 05/11/24 08:12 Dose: 5 mg Ondansetron HCl (Ondansetron 2 Mg/Ml Sdv 2 Ml) 4 mg IVP Q8H PRN PRN Reason: vomiting, or N/V if npo Potassium Chloride (Potassium Chloride Er 20 Meq Tablet) 20 meq PO DAILY [facility] Last Admin: 05/11/24 08:12 Dose: 20 meq Spironolactone (Spironolactone 25 Mg Tablet) 25 mg PO DAILY [facility] Last Admin: 05/11/24 08:12 Dose: 25 mg Vitals/I&O/Wt Last Vital Signs Temp 98.4 F 05/11/24 08:00 Pulse 59 L 05/11/24 08:00 Resp 12 05/11/24 08:00 BP 138/67 05/11/24 08:00 Pulse Ox 93 05/11/24 07:25 O2 Del Method Nasal Cannula 05/11/24 07:25 O2 Flow Rate 1 05/11/24 03:59 05/10/24 05/11/24 05/11/24 22:59 06:59 14:59 Intake Total 480 / 950 360 / 360 Output Total 1375 / 2750 825 / 3575 Balance -895 / -1800 -825 / -2625 360 / 360 Weight last 48 hrs Weight 104.598 kg Weight 106.005 kg Physical Exam 2 Narrative: no apparent respiratory distress vital signs noted. HEENT normocephalic atraumatic Neck is supple lungs clear Heart regular positive S1-S2 Abdomen is soft positive bowel sounds. Extremities bilateral 2+ edema in legs, 3+ in arms dec edema in scrotum and abd neuro awake alert oriented x 3 Data 05/11/24 02:59 05/11/24 02:59 Micro: Microbiology 05/10/24 09:20 Occult Blood (FIT) - Final Stool - Stool Aspirate A&P Assessment and plan (1) Proteinuria: The patient is a 58-year-old gentleman who did not have significant medical follow-up. The patient hurt his foot a few weeks ago now comes in with a foot fracture and severe hypertension anasarca 3.6 g of proteinuria creatinine of 1.5 to 1.8 mg/dL and an EF of 35 to 40% - I am concerned that he has BEVERLEY- may benefit from BiPAP at night 1. CKD with proteinuria. This can all be secondary to hypertension however it is a higher degree of proteinuria than I would expect. Renal ultrasound right kidney 13.5 cm right renal artery normal duplex left kidney 13.4 cm also normal renal artery duplex. Patient does have some cyst. Given hypertension proteinuria and CKD -using roman-i 2. anasarca improving 3. diarrhea- please send stool for c diff and for cx, and fll diarrhea eval given dirrhea and now normal b- hold hydralazine. dec lasix and lisinopril to daily 4. Anemia - Iron saturation 17% ferritin is 80. Patient will need a GI evaluation. I started IV iron. I am concerned for possibility of malignancy. 5. Replace magnesium 6. Replace vitamin D. PTH of 69 should improve once we replace vitamin D. 7. Patient is on levothyroxine at this time. 8. Serologies pending.normal complements and anti-dsdna 9. Heart failure EF of 35 to 40% diffuse reduced EF. Case discussed in detail with Dr. Ivory. The patient will need full cardiac evaluation. Once he is stable.- for now roman-i/ aldactone 10. Metabolic alkalosis from diuresis. dec diuretics 11. Patient creatinine 1.5 on admission to question if this was his baseline creatinine or acute kidney injury. likely ckd st baseline 12. Normal venous Doppler. 13. hypothyroidism- replace w/ levothyroxine and monitor tsh every 4 weeks The patient was seen and examined using audiovisual equipment with the aide of a nurse. The patient consented to telehealth visit. Qualifiers: Proteinuria type: persistent Qualified Code(s): R80.1 - Persistent proteinuria, unspecified Plan see above Attestations 2 Medical Necessity Statement*: diarrhea, jignesh, anasarca Time Spent in Patient Care: 16 - 35 minutes (>than 50% of time sp ent in counselling and/or direct pt care on unit) . Coding Level of Care Code Acute Code for Chg Fwd Diagnoses Persistent proteinuria R80.1 Proteinuria type: persistent
[2024-05-11] MEDS: ferric gluconate 125 MG in sodium chloride 0.9% (100 ml) 100 ML 110 MG IV (11:36)
[2024-05-11] MEDS: heparin 5,000 unit/mL INJ 1 mL 5000 UNIT SUBCUT (11:36)
--- NOTE | 2024-05-11 13:39 | P.PN_ITS ---
Subjective 2 Subjective: Seen this morning. Patient having significant amount of diarrhea at this time. He says he is incontinent of stool and has a water coming out of him.C. difficile has been sent at this time. Nephrology evaluated patient and adjusted. He denies any abdominal cramping at this time. Patient is 14 L negative since admission. Vitals/I&O/Wt Last Vital Signs Temp 97.9 F 05/11/24 11:26 Pulse 62 05/11/24 11:26 Resp 15 05/11/24 11:26 BP 172/79 05/11/24 11:26 Pulse Ox 95 05/11/24 11:26 O2 Del Method Nasal Cannula 05/11/24 11:26 O2 Flow Rate 1 05/11/24 03:59 05/10/24 05/11/24 05/11/24 22:59 06:59 14:59 Intake Total 480 / 950 830 / 830 Output Total 1375 / 2750 825 / 3575 Balance -895 / -1800 -825 / -2625 830 / 830 Weight last 48 hrs Weight 104.598 kg Weight 106.005 kg Physical Exam 2 Narrative: General: No acute distress, AO x3, generalized anasarca. HEENT: PERRLA, pupils bilaterally equal and reactive, pallors not present Chest: Normal vesicular breath sounds, no added sounds, equal good air entry bilaterally CVS: S1-S2 regular, no murmurs, no tachycardia, no gallops, no rubs Abdomen: Soft, nontender, bowel sounds present Neuro: No focal deficits. Extremities: Generalized anasarca Data 05/11/24 02:59 05/11/24 02:59 Micro: Microbiology 05/10/24 09:20 Occult Blood (FIT) - Final Stool - Stool Aspirate A&P Assessment and plan (1) Anasarca: 58-year-old male with no known prior medical history presenting today with anasarca. Differentials are broad at this time, concerned mainly about CHF being foremost. Chest x-ray shows cardiomegaly and bilateral pleural effusions. Check echocardiogram for cardiomyopathy Check EKG and troponin series Lasix 40 mg IV every 12 hours Closely monitor urine output and renal function with diuresis. Other possible etiologies include liver cirrhosis, will check ultrasound of the liver. Check UA to assess for proteinuria. Creatinine currently at 1.5 Check TSH for Rosa's (2) Fracture of second metatarsal bone of right foot: Consult with podiatry. Appreciate recommendations. Qualifiers: Encounter type: subsequent encounter Fracture type: closed Plan Plan for today May 08, 2024. Review of chart for the past 2 days. Currently patient is on nitro gtt. and Lasix gtt. per cardiology recommendations. EF of 35 to 40% with moderate global hypokinesia. Net -4.5 L last 24 hours; net -6.7 L since admission. Currently on 3 L/min supplemental O2 via nasal cannula. Creatinine trending up to 1.8 today. Reviewed UA. Microscopic hematuria present. 24-hour urine protein at 3600 mg, spot total protein at 159. Serum protein at 4.5, serum albumin at 2.5. In the presence of nephrotic range proteinuria, low serum albumin, concerned about nephrotic syndrome with a primary underlying process here. Will consult nephrology for recommendations. ? Kidney biopsy ? Obtain serum HIV, SPEP, UPEP, hepatitis B and C screen, EVY panel, RPR. Obtain renal Doppler to assess for renal artery stenosis, renal vein thrombosis and hydronephrosis. Currently on nitro drip, blood pressure 158/75. Start hydralazine 25 mg p.o. 3 times daily and attempt to wean off nitroglycerin infusion. Will plan to add add Imdur next depending on blood pressure response. Change DVT prophylaxis from Lovenox 40 mg daily to heparin 5000 subcutaneously every 12 hours. Foot surgery would need to be deferred until his fluid status is optimized. May 09, 2024 Patient is clinically improving. Net -10 L since admission. Discontinue Lasix drip. Transition to Lasix 40 mg IV every 12 hours. Monitor urine output, creatinine with this change. If continues to diurese well can likely be transition to oral diuretics over the next 24 to 48 hours. Discontinue nitroglycerin infusion. Increase hydralazine to 50 mg 3 times daily from 25 mg 3 times daily. Amlodipine discontinued per nephrology recommendations. Started instead on lisinopril 5 mg daily. Started Aldactone 25 mg p.o. daily. Goal to titrate lisinopril up as much as tolerated per creatinine. Creatinine is stable today at 1.7. Perhaps this may be patient's baseline. Check FOBT given anemia. Received iron infusion today. Pending EVY profile, aldosterone, ASO, SPEP UPEP kappa lambda ratio. Unable to add beta-blockers due to sinus bradycardia 05/10/2024 ? Clinically improving. -12 L since admission ? Continue Lasix 40 IV twice daily. Monitor urine output, creatinine 1.7 today. Stable from yesterday. ? Plan to switch to oral diuretics in a.m. versus in 48 hours. ? Continue hydralazine 50 3 times daily. Lisinopril adjusted to 5 twice daily today. Aldactone 25 daily added. ? FOBT pending at this time. ? Pending any profile aldosterone ASO SPEP UPEP kappa lambda ratio. ? Keep off of beta-blockers secondary to bradycardia. ? Continue to watch electrolytes. 05/11/2024 Patient has developed incontinent watery diarrhea at this point. -14 L since admission ? Will hold off on IV Lasix today ? Discontinue hydralazine today ? Continue spironolactone ? Will check C. difficile, stool culture, ova parasite screen ? Check lactoferrin ? Will check CT abdomen pelvis without contrast ? Once ready for discharge patient will need outpatient kidney biopsy ? Check electrolytes in evening. Check BMP at 6 PM. Attestations 2 Medical Necessity Statement*: And has developed severe watery diarrhea at this time. Will need workup for the diarrhea. Diagnoses Anasarca R60.1 Fracture of second metatarsal bone of right foot S92.321A Encounter type: subsequent encounter Fracture type: closed
--- NOTE | 2024-05-11 13:41 | CTR_ITS ---
PROCEDURE INFORMATION: Exam: CT Abdomen And Pelvis Without Contrast Exam date and time: 05/11/2024 3:12 PM Age: 58 years old Clinical indication: Other: Severe diarrhea TECHNIQUE: Imaging protocol: Computed tomography of the abdomen and pelvis without contrast. Radiation optimization: All CT scans at this facility use at least one of these dose optimization techniques: automated exposure control; mA and/or kV adjustment per patient size (includes targeted exams where dose is matched to clinical indication); or iterative reconstruction. COMPARISON: US CV renal doppler [id number] 05/08/2024 5:11 PM RADIATION DOSE METRICS: Total DLP (mGy-cm): 898.43 FINDINGS: Lungs: Small amounts of atelectasis and possible pneumonitis in the lung bases. Pleural spaces: Large right pleural effusion. Small left pleural effusion. No obvious pleural thickening. No pneumothorax. Heart: Moderate cardiomegaly. Small pericardial effusion. Diaphragm: Large hiatal hernia. Liver: Normal. No mass. Gallbladder and biliary ducts: Normal. No calcified stones. No ductal dilation. Pancreas: Grossly unremarkable pancreas, but markedly limited. Spleen: Normal. No splenomegaly. Adrenal glands: Normal. No mass. Kidneys and ureters: Exophytic 3 cm simple cyst lower left kidney needs no follow-up. Otherwise, grossly unremarkable, but limited. Stomach and bowel: Otherwise, grossly unremarkable stomach and bowel, but evaluation for subtle stomach and bowel pathology is markedly limited. Appendix: No evidence of appendicitis. Intraperitoneal space: Diffuse stranding throughout abdominal and pelvic fat. Small amount of fluid in the abdomen and pelvis, suggesting anasarca. No obvious abscess, but evaluation for such is limited. No obvious free air. Vasculature: Tiny amount of arterial calcification. Otherwise, grossly unremarkable noncontrast vasculature. Lymph nodes: No obvious lymphadenopathy, but evaluation for such is quite limited. Urinary bladder: Unremarkable as visualized. Reproductive: Unremarkable as visualized. Bones/joints: Mild and moderate multilevel spondylosis. A few mild compression deformities of lower thoracic vertebral bodies. These are probably chronic. However, if there is a history of current or recent trauma here, then 1 or more of these could be acute or subacute. If so, please correlate with history and point tenderness here on physical examination. Otherwise, unremarkable. Soft tissues: Large amount of diffuse body wall edema suggests anasarca. Otherwise, unremarkable visualized body wall. Otherwise, unremarkable soft tissues. Other findings: Markedly limited by the patient's habitus and lack of oral intravenous contrast. CT/CT abdomen pelvis wo con [id number] IMPRESSION: 1. Probable anasarca with large amount of diffuse body wall edema, bilateral pleural effusions, small amounts of abdominal and pelvic fluid, and diffuse abdominal and pelvic fat stranding. 2. Moderate cardiomegaly. Small pericardial effusion. 3. A few mild compression deformities of lower thoracic vertebral bodies. These are probably chronic. However, if there is a history of current or recent trauma here, then 1 or more of these could be acute or subacute. If so, please correlate with history and point tenderness here on physical examination. 4. Additional details as above.
[2024-05-11 15:30] LABS: Anti-Nuclear Antibody Screen POSITIVE (NEGATIVE); Anti-Nuclear Antibody Titer 1:40 titer
[2024-05-11 17:35] LABS: Lactate Dehydrogenase 174 U/L (135-225); Total Protein 4.5 g/dL (6.6-8.7)
[2024-05-11] MEDS: atorvastatin 40 mg Tablet 80 MG PO (21:09)
[2024-05-12] VITALS (12 sets, daily range): BP systolic 163–177; BP diastolic 76–87; PULSE 51–60; RESP 6–22; TEMP 36.7–37.1; O2SAT 93–98; BMI 32.1
[2024-05-12 04:21] LABS: Basophils % 0.5 %; Eosinophils # 0.3 10^3/uL (0.0-0.8); Eosinophils % 4.5 %; Hematocrit 28.3 % (37-53); Lymphocytes % 18.4 %; Mean Corpuscular HGB Conc 31.1 g/dL (30-55); Mean Corpuscular Hemoglobin 29.5 pg (27-33); Mean Platelet Volume 10.8 fL (7.4-10.4); Monocytes # 0.7 10^3/uL (0.2-0.9); Monocytes % 11.8 %; Neutrophils # 3.62 10^3/uL (1.8-7.7); Neutrophils % 64.6 %; Nucleated Red Blood Cells % 0 %; Platelet Count 203 10^3/cmm (157-399); Red Blood Count 2.98 10^6/uL (3.85-5.65); Red Cell Distribution Width 15.2 % (12.1-15.1)
[2024-05-12 04:33] LABS: INR 1.15 (0.8-1.2)
[2024-05-12 04:43] LABS: Alanine Aminotransferase 17 U/L (0-41); Albumin Level 2.3 g/dL (3.5-5.2); Alkaline Phosphatase 65 U/L (40-130); Anion Gap 6.3 (5-19); Aspartate Amino Transferase 19 U/L (0-40); Blood Urea Nitrogen 23 mg/dL (8-23); Calcium 7.8 mg/dL (8.5-10.5); Carbon Dioxide 37 mmol/L (22-29); Chloride 102 mmol/L (98-107); Creatinine Clr Calc Pharmacy 50.8884; Globulin 1.9 g/dL (1.3-4.6); Glomerular Filtration Rate 36.3 mL/min (90-130); Glucose 117 mg/dL (65-115); Magnesium 1.8 mg/dL (1.7-2.3); Osmolality Calculated 297 mOsm/kg (285-295); Phosphorus 3.3 mg/dL (2.5-4.5); Potassium 4.3 mmol/L (3.5-5.1); Sodium 141 mmol/L (136-145); Total Bilirubin 0.3 mg/dL (0.15-1.2); Total Protein 4.2 g/dL (6.6-8.7)
[2024-05-12] MEDS: levothyroxine 50 mcg Tablet PO (05:16)
--- NOTE | 2024-05-12 08:36 | P.PN_ITS ---
Subjective 2 Subjective: The patient was seen and examined this morning. The patient states diarrhea is improving. Patient states urine output is decreased. His edema is decreased. He denies nausea or vomiting or fevers or chills. Medications: Reviewed: Yes Medication Review Details: Current Medications Acetaminophen (Acetaminophen 325 Mg Tablet) 650 mg PO Q6H PRN PRN Reason: Mild/Mod Pain Or Temp >/= 101 Aspirin (Aspirin 81 Mg Ec Tablet) 81 mg PO DAILY [facility] Last Admin: 05/11/24 08:12 Dose: 81 mg Atorvastatin Calcium (Atorvastatin 40 Mg Tablet) 80 mg PO BEDTIME [facility] Last Admin: 05/11/24 21:09 Dose: 80 mg Ergocalciferol (Ergocalciferol (Vitamin D2) 50,000 Unit Capsule) 50,000 unit PO Q7D [facility] Last Admin: 05/09/24 08:17 Dose: 50,000 unit Furosemide (Furosemide 10 Mg/Ml Sdv 4ml) 40 mg IVP Q24H [facility] Heparin Sodium (Porcine) (Heparin 5,000 Unit/Ml Inj 1 Ml) 5,000 unit SUBCUT Q12H [facility] Last Admin: 05/11/24 11:36 Dose: 5,000 unit Ferric Sodium Gluconate 125 mg (/ Sodium Chloride) 110 mls @ 110 mls/hr IV Q24H [facility] Stop: 05/16/24 11:59 Last Infusion: 05/11/24 12:47 Dose: Infused Levothyroxine Sodium (Levothyroxine 50 Mcg Tablet) 50 mcg PO QAM [facility] Last Admin: 05/12/24 05:16 Dose: 50 mcg Lisinopril (Lisinopril 5 Mg Tablet) 5 mg PO DAILY [facility] Ondansetron HCl (Ondansetron 2 Mg/Ml Sdv 2 Ml) 4 mg IVP Q8H PRN PRN Reason: vomiting, or N/V if npo Potassium Chloride (Potassium Chloride Er 20 Meq Tablet) 20 meq PO DAILY [facility] Last Admin: 05/11/24 08:12 Dose: 20 meq Spironolactone (Spironolactone 25 Mg Tablet) 25 mg PO DAILY [facility] Last Admin: 05/11/24 08:12 Dose: 25 mg Vitals/I&O/Wt Last Vital Signs Temp 98.0 F 05/12/24 07:02 Pulse 54 L 05/12/24 07:02 Resp 15 05/12/24 07:02 BP 164/76 05/12/24 07:02 Pulse Ox 95 05/12/24 07:02 O2 Del Method Nasal Cannula 05/12/24 07:02 O2 Flow Rate 3 05/11/24 18:35 05/11/24 05/12/24 05/12/24 22:59 06:59 14:59 Intake Total 240 / 1070 Output Total 300 / 300 Balance -60 / 770 Weight last 48 hrs Weight 104.598 kg Weight 104.598 kg Physical Exam 2 Narrative: no apparent respiratory distress vital signs noted. HEENT normocephalic atraumatic Neck is supple lungs clear Heart regular positive S1-S2 Abdomen is soft positive bowel sounds. Extremities decreasing bilateral 2+ edema in legs and arms dec edema in scrotum and abd neuro awake alert oriented x 3 Data 05/12/24 04:10 05/12/24 04:10 A&P Assessment and plan (1) Proteinuria: The patient is a 58-year-old gentleman who did not have significant medical follow-up. The patient hurt his foot a few weeks ago now comes in with a foot fracture and severe hypertension anasarca 3.6 g of proteinuria creatinine of 1.5 to 1.8 mg/dL and an EF of 35 to 40% - I am concerned that he has BEVERLEY- may benefit from BiPAP at night 1. CKD with proteinuria. This can all be secondary to hypertension however it is a higher degree of proteinuria than I would expect. Renal ultrasound right kidney 13.5 cm right renal artery normal duplex left kidney 13.4 cm also normal renal artery duplex. Patient does have some cyst. -EVY is weakly positive at 1-40, [id number] DNA is negative at 4, normal complements, ANCA still pending, free light chains pending. Hepatitis serologies negative antistreptolysin antibody negative 2. Mild acute kidney injury with diarrhea. Bicarbonate elevated with hold diuretics today. Monitor 1 to avoid hypotension. 3. Anasarca improving 4. Diarrhea improving. 5. Anemia - Iron saturation 17% ferritin is 80. Patient will need a GI evaluation. I started IV iron. I am concerned for possibility of malignancy. 6. Replace vitamin D. PTH of 69 should improve once we replace vitamin D. 7. Patient is on levothyroxine at this time. 8. Heart failure EF of 35 to 40% diffuse reduced EF. Case discussed in detail with Dr. Ivory. The patient will need full cardiac evaluation when he is stable. Monitor on low-dose BURT inhibitor 9. Metabolic alkalosis from diuresis. Hold diuretics 10. Patient creatinine 1.5 on admission to question if this was his baseline creatinine or acute kidney injury. likely ckd st baseline. Patient now has COLLEEN 11. hypothyroidism- replace w/ levothyroxine and monitor tsh every 4 weeks 12. Will monitor blood pressure The patient was seen and examined using audiovisual equipment with the aide of a nurse. The patient consented to telehealth visit. Qualifiers: Proteinuria type: persistent Qualified Code(s): R80.1 - Persistent proteinuria, unspecified Plan see above. Monitor Attestations 2 Medical Necessity Statement*: Edema acute on chronic renal failure. Time Spent in Patient Care: 16 - 35 minutes (>than 50% of time sp ent in counselling and/or direct pt care on unit) . Coding Level of Care Code Acute Code for Chg Fwd Diagnoses Persistent proteinuria R80.1 Proteinuria type: persistent
--- NOTE | 2024-05-12 09:00 | US_ITS ---
WS: [id number] Ultrasound chest, bilateral. Bilateral pleural effusions are evaluated for possible thoracentesis. Patient does have small bilateral pleural effusions. The largest is on the LEFT but there is lung ext ending into the pleural fluid. The effusions appear decreased in size as compared to the recent CT. US/US chest [id number] IMPRESSION: Small bilateral pleural effusions. Not sufficient to perform thoracentesis.
[2024-05-12] MEDS: lisinopril 5 mg Tablet PO (10:17)
[2024-05-12] MEDS: ferric gluconate 125 MG in sodium chloride 0.9% (100 ml) 100 ML 110 MG IV (10:19)
--- NOTE | 2024-05-12 13:11 | P.PN_ITS ---
Subjective 2 Subjective: Seen this morning. Patient to go for thoracentesis today. Says diarrhea has slowed down. Stool sample negative for C. difficile however rest of stool studies are pending Patient does have a large right pleural effusion on CT from yesterday. Vitals/I&O/Wt Last Vital Signs Temp 98.0 F 05/12/24 11:44 Pulse 53 L 05/12/24 11:44 Resp 19 H 05/12/24 11:44 BP 163/80 05/12/24 11:44 Pulse Ox 98 05/12/24 11:44 O2 Del Method Nasal Cannula 05/12/24 11:44 O2 Flow Rate 3 05/11/24 18:35 05/11/24 05/12/24 05/12/24 22:59 06:59 14:59 Intake Total 240 / 1070 470 / 470 Output Total 300 / 300 600 / 600 Balance -60 / 770 -130 / -130 Weight last 48 hrs Weight 104.598 kg Weight 104.598 kg Physical Exam 2 Narrative: General: No acute distress, AO x3, generalized anasarca. HEENT: PERRLA, pupils bilaterally equal and reactive, pallors not present Chest: Normal vesicular breath sounds, no added sounds, equal good air entry bilaterally, no crackles on auscultation CVS: S1-S2 regular, no murmurs, Abdomen: Soft, nontender, bowel sounds present Neuro: No focal deficits. Extremities: Generalized anasarca Data 05/12/24 04:10 05/12/24 04:10 Micro: Microbiology 05/11/24 09:44 Stool Lactoferrin - Final Stool - Stool Aspirate A&P Assessment and plan (1) Anasarca: 58-year-old male with no known prior medical history presenting today with anasarca. Differentials are broad at this time, concerned mainly about CHF being foremost. Chest x-ray shows cardiomegaly and bilateral pleural effusions. Check echocardiogram for cardiomyopathy Check EKG and troponin series Lasix 40 mg IV every 12 hours Closely monitor urine output and renal function with diuresis. Other possible etiologies include liver cirrhosis, will check ultrasound of the liver. Check UA to assess for proteinuria. Creatinine currently at 1.5 Check TSH for Rosa's (2) Fracture of second metatarsal bone of right foot: Consult with podiatry. Appreciate recommendations. Qualifiers: Encounter type: subsequent encounter Fracture type: closed Plan Plan for today May 08, 2024. Review of chart for the past 2 days. Currently patient is on nitro gtt. and Lasix gtt. per cardiology recommendations. EF of 35 to 40% with moderate global hypokinesia. Net -4.5 L last 24 hours; net -6.7 L since admission. Currently on 3 L/min supplemental O2 via nasal cannula. Creatinine trending up to 1.8 today. Reviewed UA. Microscopic hematuria present. 24-hour urine protein at 3600 mg, spot total protein at 159. Serum protein at 4.5, serum albumin at 2.5. In the presence of nephrotic range proteinuria, low serum albumin, concerned about nephrotic syndrome with a primary underlying process here. Will consult nephrology for recommendations. ? Kidney biopsy ? Obtain serum HIV, SPEP, UPEP, hepatitis B and C screen, EVY panel, RPR. Obtain renal Doppler to assess for renal artery stenosis, renal vein thrombosis and hydronephrosis. Currently on nitro drip, blood pressure 158/75. Start hydralazine 25 mg p.o. 3 times daily and attempt to wean off nitroglycerin infusion. Will plan to add add Imdur next depending on blood pressure response. Change DVT prophylaxis from Lovenox 40 mg daily to heparin 5000 subcutaneously every 12 hours. Foot surgery would need to be deferred until his fluid status is optimized. May 09, 2024 Patient is clinically improving. Net -10 L since admission. Discontinue Lasix drip. Transition to Lasix 40 mg IV every 12 hours. Monitor urine output, creatinine with this change. If continues to diurese well can likely be transition to oral diuretics over the next 24 to 48 hours. Discontinue nitroglycerin infusion. Increase hydralazine to 50 mg 3 times daily from 25 mg 3 times daily. Amlodipine discontinued per nephrology recommendations. Started instead on lisinopril 5 mg daily. Started Aldactone 25 mg p.o. daily. Goal to titrate lisinopril up as much as tolerated per creatinine. Creatinine is stable today at 1.7. Perhaps this may be patient's baseline. Check FOBT given anemia. Received iron infusion today. Pending EVY profile, aldosterone, ASO, SPEP UPEP kappa lambda ratio. Unable to add beta-blockers due to sinus bradycardia 05/10/2024 ? Clinically improving. -12 L since admission ? Continue Lasix 40 IV twice daily. Monitor urine output, creatinine 1.7 today. Stable from yesterday. ? Plan to switch to oral diuretics in a.m. versus in 48 hours. ? Continue hydralazine 50 3 times daily. Lisinopril adjusted to 5 twice daily today. Aldactone 25 daily added. ? FOBT pending at this time. ? Pending any profile aldosterone ASO SPEP UPEP kappa lambda ratio. ? Keep off of beta-blockers secondary to bradycardia. ? Continue to watch electrolytes. 05/12/2024 Diarrhea has improved slightly. -14 L since admission. ? Continue Lasix 40 IV daily at this point. ? Continue spironolactone ? Will check C. difficile, stool culture, ova parasite screen?pending. C. difficile negative. Will order repeat study of C. difficile at this time as I have a high clinical suspicion. ? CT abdomen pelvis reviewed. Does show a right large pleural effusion. Thoracentesis ordered. Will send for fluid analysis as well. Most likely transudative effusion however will evaluate for that. ?Lactoferrin is pending. ? Once ready for discharge patient will need outpatient kidney biopsy ? Check electrolytes in evening. Check BMP at 6 PM. ? Continue to diurese today. Await stool studies. If clinically improved by tomorrow may consider discharging home with oral Lasix. Patient will need close follow-up with nephrology as an outpatient. ? Home oxygen evaluation in a.m. after thoracentesis. Attestations 2 Medical Necessity Statement*: Thoracentesis today Diagnoses Anasarca R60.1 Fracture of second metatarsal bone of right foot S92.321A Encounter type: subsequent encounter Fracture type: closed
[2024-05-12 14:43] LABS: KAPPA LIGHT CHAIN, FREE, SERUM 78.3 mg/L (3.3-19.4); KAPPA/LAMBDA LIGHT CHAINS FREE 1.48 (0.26-1.65)
[2024-05-12] MEDS: FUROsemide 10 mg/mL SDV 4mL 40 MG IVP (15:29)
[2024-05-12] MEDS: atorvastatin 40 mg Tablet 80 MG PO (20:56)
[2024-05-12 21:25] LABS: Immunofixation Serum Normal pattern.
[2024-05-13] VITALS (9 sets, daily range): BP systolic 145–179; BP diastolic 70–82; PULSE 51–79; RESP 10–20; TEMP 36.9–37.2; O2SAT 93–97
[2024-05-13 04:16] LABS: Basophils % 0.7 %; Eosinophils # 0.3 10^3/uL (0.0-0.8); Hematocrit 27.9 % (37-53); Lymphocytes # 0.9 10^3/uL (0.8-4.8); Lymphocytes % 14.8 %; Mean Corpuscular HGB Conc 31.5 g/dL (30-55); Mean Corpuscular Hemoglobin 30.2 pg (27-33); Mean Corpuscular Volume 95.9 fl (82-101); Mean Platelet Volume 11.1 fL (7.4-10.4); Monocytes # 0.7 10^3/uL (0.2-0.9); Monocytes % 11.8 %; Neutrophils # 4.01 10^3/uL (1.8-7.7); Neutrophils % 67.4 %; Nucleated Red Blood Cells % 0 %; Platelet Count 207 10^3/cmm (157-399); Red Blood Count 2.91 10^6/uL (3.85-5.65); Red Cell Distribution Width 14.8 % (12.1-15.1); White Blood Count 5.95 10^3/uL (3.29-11.43)
[2024-05-13] MEDS: FUROsemide 10 mg/mL SDV 4mL 40 MG IVP (04:37)
[2024-05-13] MEDS: levothyroxine 50 mcg Tablet PO (04:37)
[2024-05-13 04:46] LABS: Alanine Aminotransferase 23 U/L (0-41); Albumin Level 2.4 g/dL (3.5-5.2); Alkaline Phosphatase 69 U/L (40-130); Anion Gap 10.1 (5-19); Aspartate Amino Transferase 32 U/L (0-40); Blood Urea Nitrogen 24 mg/dL (8-23); Calcium 7.4 mg/dL (8.5-10.5); Carbon Dioxide 34 mmol/L (22-29); Chloride 100 mmol/L (98-107); Creatinine Clr Calc Pharmacy 56.8753; Glomerular Filtration Rate 41.3 mL/min (90-130); Glucose 114 mg/dL (65-115); Osmolality Calculated 295 mOsm/kg (285-295); Potassium 4.1 mmol/L (3.5-5.1); Sodium 140 mmol/L (136-145); Total Bilirubin 0.3 mg/dL (0.15-1.2); Total Protein 4.4 g/dL (6.6-8.7)
[2024-05-13 04:47] LABS: Magnesium 1.7 mg/dL (1.7-2.3); Phosphorus 3.2 mg/dL (2.5-4.5)
--- NOTE | 2024-05-13 07:43 | PM.PN ---
Subjective Subjective: The patient was seen and examined. Decreasing edema. The patient still has diarrhea has increased again C. difficile stool was negative. Recent CT scan with large right pleural effusion. No nausea vomiting or headaches. Decreased shortness of breath. No chest pain. Medications: Reviewed: Yes Medication Review Details: Current Medications Acetaminophen (Acetaminophen 325 Mg Tablet) 650 mg PO Q6H PRN PRN Reason: Mild/Mod Pain Or Temp >/= 101 Aspirin (Aspirin 81 Mg Ec Tablet) 81 mg PO DAILY [facility] Last Admin: 05/11/24 08:12 Dose: 81 mg Atorvastatin Calcium (Atorvastatin 40 Mg Tablet) 80 mg PO BEDTIME [facility] Last Admin: 05/12/24 20:56 Dose: 80 mg Ergocalciferol (Ergocalciferol (Vitamin D2) 50,000 Unit Capsule) 50,000 unit PO Q7D [facility] Last Admin: 05/09/24 08:17 Dose: 50,000 unit Furosemide (Furosemide 10 Mg/Ml Sdv 4ml) 40 mg IVP Q12H [facility] Last Admin: 05/13/24 04:37 Dose: 40 mg Heparin Sodium (Porcine) (Heparin 5,000 Unit/Ml Inj 1 Ml) 5,000 unit SUBCUT Q12H [facility] Last Admin: 05/11/24 11:36 Dose: 5,000 unit Ferric Sodium Gluconate 125 mg (/ Sodium Chloride) 110 mls @ 110 mls/hr IV Q24H [facility] Stop: 05/16/24 11:59 Last Infusion: 05/12/24 11:20 Dose: Infused Levothyroxine Sodium (Levothyroxine 50 Mcg Tablet) 50 mcg PO QAM [facility] Last Admin: 05/13/24 04:37 Dose: 50 mcg Lisinopril (Lisinopril 5 Mg Tablet) 5 mg PO DAILY [facility] Last Admin: 05/12/24 10:17 Dose: 5 mg Ondansetron HCl (Ondansetron 2 Mg/Ml Sdv 2 Ml) 4 mg IVP Q8H PRN PRN Reason: vomiting, or N/V if npo Spironolactone (Spironolactone 25 Mg Tablet) 25 mg PO DAILY [facility] Last Admin: 05/11/24 08:12 Dose: 25 mg Vitals/I&O/Wt Last Vital Signs Temp 98.4 F 05/13/24 04:00 Pulse 56 L 05/13/24 06:00 Resp 10 L 11/07/24 04:00 BP 179/80 05/13/24 04:00 Pulse Ox 96 05/13/24 04:00 O2 Del Method Nasal Cannula 05/13/24 04:00 O2 Flow Rate 3 05/11/24 18:35 05/12/24 05/13/24 05/13/24 22:59 06:59 14:59 Intake Total 360 / 1070 Output Total 2281 / 2881 Balance -1921 / -1811 Weight last 48 hrs Weight 102.194 kg Weight 104.598 kg Physical Exam Narrative: no apparent respiratory distress vital signs noted. HEENT normocephalic atraumatic Neck is supple lungs clear Heart regular positive S1-S2 Abdomen is soft positive bowel sounds. Extremities decreasing significant bilateral 2+ edema in legs and arms dec edema in scrotum and abd neuro awake alert oriented x 3 Data 05/13/24 03:32 05/13/24 03:32 Micro: Microbiology 05/11/24 09:44 Stool Lactoferrin - Final Stool - Stool Aspirate A&P Assessment and plan (1) Proteinuria: The patient is a 58-year-old gentleman who did not have significant medical follow-up. The patient hurt his foot a few weeks ago now comes in with a foot fracture and severe hypertension anasarca 3.6 g of proteinuria creatinine of 1.5 to 1.8 mg/dL and an EF of 35 to 40% - I am concerned that he has BEVERLEY- may benefit from BiPAP at night 1. CKD with proteinuria. This can all be secondary to hypertension however it is a higher degree of proteinuria than I would expect. Renal ultrasound right kidney 13.5 cm right renal artery normal duplex left kidney 13.4 cm also normal renal artery duplex. Patient does have some cyst. -EVY is weakly positive at 1-40, [id number] DNA is negative at 4, normal complements, ANCA still pending, free light chains normal ratio. Hepatitis serologies negative antistreptolysin antibody negative 2. Mild acute kidney injury with diarrhea. Bicarbonate elevated - use furosemide 40 daily. add acetazolamide. monitor k and cr, bicarb. restart burt-i 3. Anasarca improving 4. Diarrhea per PCP/ hospitalist 5. Anemia - Iron saturation 17% ferritin is 80. Patient will need a GI evaluation. I started IV iron. I am concerned for possibility of malignancy. 6. Replace vitamin D. PTH of 69 should improve once we replace vitamin D. 7. Patient is on levothyroxine at this time. 8. Heart failure EF of 35 to 40% diffuse reduced EF. Case discussed in detail with Dr. Ivory. The patient will need full cardiac evaluation when he is stable. Monitor on low-dose BURT inhibitor 9. Metabolic alkalosis from diuresis. Hold diuretics 10. Patient creatinine 1.5 on admission to question if this was his baseline creatinine or acute kidney injury. likely ckd st baseline. Patient now has COLLEEN 11. hypothyroidism- replace w/ levothyroxine and monitor tsh every 4 weeks 12. Will monitor blood pressure The patient was seen and examined using audiovisual equipment with the aide of a nurse. The patient consented to telehealth visit. Qualifiers: Proteinuria type: persistent Qualified Code(s): R80.1 - Persistent proteinuria, unspecified Plan see above. Monitor BP, diurese. monitor renal fxn Attestations Medical Necessity Statement*: diuresis, diarrhea, ckd, proteinuria Time Spent in Patient Care: 16 - 35 minutes (>than 50% of time spent in counselling and/or direct pt care on unit). Coding Level of Care Code Acute Code for Chg Fwd Diagnoses Persistent proteinuria R80.1 Proteinuria type: persistent
[2024-05-13] MEDS: acetaZOLAMIDE 250 mg Tablet PO ×2 (08:32→17:29)
[2024-05-13] MEDS: lisinopril 5 mg Tablet PO (08:32)
[2024-05-13 12:18] LABS: C.Diff PCR (Lab) NEGATIVE (Negative)
--- NOTE | 2024-05-13 12:30 | P.PN_ITS ---
Subjective 2 Subjective: seen today still having diarrhea c.diff negative lactoferrin positive upper extremity edema is improving Vitals/I&O/Wt Last Vital Signs Temp 98.6 F 05/13/24 11:18 Pulse 54 L 05/13/24 11:18 Resp 20 H 05/13/24 11:18 BP 151/77 05/13/24 11:18 Pulse Ox 94 05/13/24 11:18 O2 Del Method Room Air 05/13/24 11:18 O2 Flow Rate 2 05/13/24 07:46 05/12/24 05/13/24 05/13/24 22:59 06:59 14:59 Intake Total 360 / 1070 200 / 200 Output Total 2281 / 2881 1825 / 1825 Balance -1921 / -1811 -1625 / -1625 Weight last 48 hrs Weight 102.194 kg Weight 104.598 kg Physical Exam 2 Narrative: General: No acute distress, AO x3, generalized anasarca with some improvement HEENT: PERRLA, pupils bilaterally equal and reactive, pallors not present Chest: Normal vesicular breath sounds, no added sounds, equal good air entry bilaterally, no crackles on auscultation CVS: S1-S2 regular, no murmurs, Abdomen: Soft, nontender, bowel sounds present Neuro: No focal deficits. Extremities: Generalized anasarca Data 05/13/24 03:32 05/13/24 03:32 Micro: Microbiology 05/11/24 09:44 Stool Lactoferrin - Final Stool - Stool Aspirate A&P Assessment and plan (1) Anasarca: 58-year-old male with no known prior medical history presenting today with anasarca. Differentials are broad at this time, concerned mainly about CHF being foremost. Chest x-ray shows cardiomegaly and bilateral pleural effusions. Check echocardiogram for cardiomyopathy Check EKG and troponin series Lasix 40 mg IV every 12 hours Closely monitor urine output and renal function with diuresis. Other possible etiologies include liver cirrhosis, will check ultrasound of the liver. Check UA to assess for proteinuria. Creatinine currently at 1.5 Check TSH for Rosa's (2) Fracture of second metatarsal bone of right foot: Consult with podiatry. Appreciate recommendations. Qualifiers: Encounter type: subsequent encounter Fracture type: closed Plan Plan for today May 08, 2024. Review of chart for the past 2 days. Currently patient is on nitro gtt. and Lasix gtt. per cardiology recommendations. EF of 35 to 40% with moderate global hypokinesia. Net -4.5 L last 24 hours; net -6.7 L since admission. Currently on 3 L/min supplemental O2 via nasal cannula. Creatinine trending up to 1.8 today. Reviewed UA. Microscopic hematuria present. 24-hour urine protein at 3600 mg, spot total protein at 159. Serum protein at 4.5, serum albumin at 2.5. In the presence of nephrotic range proteinuria, low serum albumin, concerned about nephrotic syndrome with a primary underlying process here. Will consult nephrology for recommendations. ? Kidney biopsy ? Obtain serum HIV, SPEP, UPEP, hepatitis B and C screen, EVY panel, RPR. Obtain renal Doppler to assess for renal artery stenosis, renal vein thrombosis and hydronephrosis. Currently on nitro drip, blood pressure 158/75. Start hydralazine 25 mg p.o. 3 times daily and attempt to wean off nitroglycerin infusion. Will plan to add add Imdur next depending on blood pressure response. Change DVT prophylaxis from Lovenox 40 mg daily to heparin 5000 subcutaneously every 12 hours. Foot surgery would need to be deferred until his fluid status is optimized. May 09, 2024 Patient is clinically improving. Net -10 L since admission. Discontinue Lasix drip. Transition to Lasix 40 mg IV every 12 hours. Monitor urine output, creatinine with this change. If continues to diurese well can likely be transition to oral diuretics over the next 24 to 48 hours. Discontinue nitroglycerin infusion. Increase hydralazine to 50 mg 3 times daily from 25 mg 3 times daily. Amlodipine discontinued per nephrology recommendations. Started instead on lisinopril 5 mg daily. Started Aldactone 25 mg p.o. daily. Goal to titrate lisinopril up as much as tolerated per creatinine. Creatinine is stable today at 1.7. Perhaps this may be patient's baseline. Check FOBT given anemia. Received iron infusion today. Pending EVY profile, aldosterone, ASO, SPEP UPEP kappa lambda ratio. Unable to add beta-blockers due to sinus bradycardia 05/10/2024 ? Clinically improving. -12 L since admission ? Continue Lasix 40 IV twice daily. Monitor urine output, creatinine 1.7 today. Stable from yesterday. ? Plan to switch to oral diuretics in a.m. versus in 48 hours. ? Continue hydralazine 50 3 times daily. Lisinopril adjusted to 5 twice daily today. Aldactone 25 daily added. ? FOBT pending at this time. ? Pending any profile aldosterone ASO SPEP UPEP kappa lambda ratio. ? Keep off of beta-blockers secondary to bradycardia. ? Continue to watch electrolytes. 05/13/2024 Diarrhea is still present. -16 L since admission. - Placed on diamox ? Continue spironolactone ? C. difficile x2 is negative, stool culture, ova parasite screen?pending. - start cipro and flagyl IV. will give one dose immodium 2 mg x1 ? CT abdomen pelvis reviewed. Does show a right large pleural effusion. Thoracentesis ordered however not enough fluid seen to be removed. ?Lactoferrin positive ? Once ready for discharge patient will need outpatient kidney biopsy ? Check electrolytes in evening. Check BMP at 6 PM. ? Continue to diurese today. Await stool studies. If clinically improved by tomorrow may consider discharging home with oral Lasix. Patient will need close follow-up with nephrology as an outpatient. ? Home oxygen evaluation complete. pt requires 3L NC Attestations 2 Medical Necessity Statement*: continues to have diarrhea, Diagnoses Anasarca R60.1 Fracture of second metatarsal bone of right foot S92.321A Encounter type: subsequent encounter Fracture type: closed
[2024-05-13] MEDS: ferric gluconate 125 MG in sodium chloride 0.9% (100 ml) 100 ML 110 MG IV (12:59)
[2024-05-13] MEDS: metroNIDAZOLE IV 500 MG/100 ML PREMIX 100 MG IV ×2 (14:25→20:31)
[2024-05-13] MEDS: ciprofloxacin 400 MG/200 ML PREMIX 200 MG IV (14:29)
[2024-05-13 15:15] LABS: ANA SCREEN, IFA NEGATIVE (NEGATIVE)
[2024-05-13] MEDS: loperamide 2 mg Capsule PO (17:29)
[2024-05-13] MEDS: atorvastatin 40 mg Tablet 80 MG PO (20:30)
[2024-05-14] VITALS (10 sets, daily range): BP systolic 145–172; BP diastolic 73–82; PULSE 51–85; RESP 13–18; TEMP 36.6–37.2; O2SAT 94–99
[2024-05-14] MEDS: FUROsemide 10 mg/mL SDV 4mL 40 MG IVP (02:14)
[2024-05-14] MEDS: ciprofloxacin 400 MG/200 ML PREMIX 200 MG IV ×2 (02:14→13:57)
[2024-05-14] MEDS: metroNIDAZOLE IV 500 MG/100 ML PREMIX 100 MG IV ×3 (03:20→20:36)
[2024-05-14 04:01] LABS: Basophils % 0.8 %; Eosinophils # 0.3 10^3/uL (0.0-0.8); Hematocrit 26.8 % (37-53); Lymphocytes # 0.8 10^3/uL (0.8-4.8); Lymphocytes % 15.9 %; Mean Corpuscular Hemoglobin 29.5 pg (27-33); Mean Corpuscular Volume 95.4 fl (82-101); Monocytes # 0.7 10^3/uL (0.2-0.9); Monocytes % 12.8 %; Neutrophils # 3.42 10^3/uL (1.8-7.7); Neutrophils % 65.3 %; Nucleated Red Blood Cells % 0 %; Platelet Count 191 10^3/cmm (157-399); Red Blood Count 2.81 10^6/uL (3.85-5.65); Red Cell Distribution Width 14.4 % (12.1-15.1); White Blood Count 5.23 10^3/uL (3.29-11.43)
[2024-05-14 04:35] LABS: CENTROMERE B ANTIBODY <1.0 NEG AI (<1.0 NEG); JO-1 ANTIBODY <1.0 NEG AI (<1.0 NEG); RNP ANTIBODY <1.0 NEG AI (<1.0 NEG); SCL-70 ANTIBODY <1.0 NEG AI (<1.0 NEG); SJOGREN'S ANTIBODY (SS-A) <1.0 NEG AI (<1.0 NEG); SM ANTIBODY <1.0 NEG AI (<1.0 NEG); SS-B <1.0 NEG AI (<1.0 NEG)
[2024-05-14 04:37] LABS: Alanine Aminotransferase 31 U/L (0-41); Albumin Level 2.4 g/dL (3.5-5.2); Alkaline Phosphatase 69 U/L (40-130); Anion Gap 9.5 (5-19); Aspartate Amino Transferase 44 U/L (0-40); Blood Urea Nitrogen 25 mg/dL (8-23); Calcium 7.5 mg/dL (8.5-10.5); Carbon Dioxide 33 mmol/L (22-29); Chloride 99 mmol/L (98-107); Creatinine Clr Calc Pharmacy 53.0437; Globulin 2.2 g/dL (1.3-4.6); Glomerular Filtration Rate 38.7 mL/min (90-130); Glucose 132 mg/dL (65-115); Magnesium 1.7 mg/dL (1.7-2.3); Osmolality Calculated 292 mOsm/kg (285-295); Phosphorus 3.3 mg/dL (2.5-4.5); Potassium 3.5 mmol/L (3.5-5.1); Sodium 138 mmol/L (136-145); Total Bilirubin 0.2 mg/dL (0.15-1.2); Total Protein 4.6 g/dL (6.6-8.7)
[2024-05-14] MEDS: levothyroxine 50 mcg Tablet PO (06:07)
[2024-05-14 08:59] LABS: ANCA Screen NEGATIVE (NEGATIVE)
[2024-05-14] MEDS: lisinopril 5 mg Tablet PO (09:01)
[2024-05-14] MEDS: acetaZOLAMIDE 250 mg Tablet PO ×2 (09:01→18:03)
[2024-05-14] MEDS: FUROsemide 10 mg/mL SDV 10mL 80 MG IVP (10:32)
[2024-05-14] MEDS: potassium chloride ER 20 mEq Tablet PO (10:32)
--- NOTE | 2024-05-14 11:58 | P.PN_ITS ---
Subjective 2 Subjective: Seen this morning. Creatinine 1.8 this morning. He is 19 L negative since admission. Still has dependent edema in buttocks and upper thigh area. Upper and lower extremity edema has improved significantly. Echo did show EF of 35 to 40%. Nephrology is following. Patient diarrhea has resolved. He states he feels better On room air. Vitals/I&O/Wt Last Vital Signs Temp 98.0 F 05/14/24 07:48 Pulse 52 L 05/14/24 07:48 Resp 13 05/14/24 07:48 BP 159/73 05/14/24 07:48 Pulse Ox 99 05/14/24 07:48 O2 Del Method Nasal Cannula 05/14/24 07:48 O2 Flow Rate 2 05/13/24 07:46 05/13/24 05/14/24 05/14/24 22:59 06:59 14:59 Intake Total 760 / 1306 540 / 1846 120 / 120 Output Total 1125 / 3950 1000 / 4950 600 / 600 Balance -365 / -2644 -460 / -3104 -480 / -480 Weight last 48 hrs Weight 101.877 kg Weight 102.194 kg Physical Exam 2 Narrative: General: No acute distress, AO x3, generalized anasarca with significant improvement. On room air at this time. HEENT: PERRLA, pupils bilaterally equal and reactive, pallors not present Chest: Normal vesicular breath sounds, no added sounds, equal good air entry bilaterally, no crackles on auscultation CVS: S1-S2 regular, no murmurs, Abdomen: Soft, nontender, bowel sounds present Neuro: No focal deficits. Extremities: Dependent edema in buttocks and thigh areas present. Bilateral lower extremities and upper extremities improved. Data 05/14/24 03:35 05/14/24 03:35 A&P Assessment and plan (1) Anasarca: 58-year-old male with no known prior medical history presenting today with anasarca. Differentials are broad at this time, concerned mainly about CHF being foremost. Chest x-ray shows cardiomegaly and bilateral pleural effusions. Check echocardiogram for cardiomyopathy Check EKG and troponin series Lasix 40 mg IV every 12 hours Closely monitor urine output and renal function with diuresis. Other possible etiologies include liver cirrhosis, will check ultrasound of the liver. Check UA to assess for proteinuria. Creatinine currently at 1.5 Check TSH for Rosa's (2) Fracture of second metatarsal bone of right foot: Consult with podiatry. Appreciate recommendations. Qualifiers: Encounter type: subsequent encounter Fracture type: closed Plan Plan for today May 08, 2024. Review of chart for the past 2 days. Currently patient is on nitro gtt. and Lasix gtt. per cardiology recommendations. EF of 35 to 40% with moderate global hypokinesia. Net -4.5 L last 24 hours; net -6.7 L since admission. Currently on 3 L/min supplemental O2 via nasal cannula. Creatinine trending up to 1.8 today. Reviewed UA. Microscopic hematuria present. 24-hour urine protein at 3600 mg, spot total protein at 159. Serum protein at 4.5, serum albumin at 2.5. In the presence of nephrotic range proteinuria, low serum albumin, concerned about nephrotic syndrome with a primary underlying process here. Will consult nephrology for recommendations. ? Kidney biopsy ? Obtain serum HIV, SPEP, UPEP, hepatitis B and C screen, EVY panel, RPR. Obtain renal Doppler to assess for renal artery stenosis, renal vein thrombosis and hydronephrosis. Currently on nitro drip, blood pressure 158/75. Start hydralazine 25 mg p.o. 3 times daily and attempt to wean off nitroglycerin infusion. Will plan to add add Imdur next depending on blood pressure response. Change DVT prophylaxis from Lovenox 40 mg daily to heparin 5000 subcutaneously every 12 hours. Foot surgery would need to be deferred until his fluid status is optimized. May 09, 2024 Patient is clinically improving. Net -10 L since admission. Discontinue Lasix drip. Transition to Lasix 40 mg IV every 12 hours. Monitor urine output, creatinine with this change. If continues to diurese well can likely be transition to oral diuretics over the next 24 to 48 hours. Discontinue nitroglycerin infusion. Increase hydralazine to 50 mg 3 times daily from 25 mg 3 times daily. Amlodipine discontinued per nephrology recommendations. Started instead on lisinopril 5 mg daily. Started Aldactone 25 mg p.o. daily. Goal to titrate lisinopril up as much as tolerated per creatinine. Creatinine is stable today at 1.7. Perhaps this may be patient's baseline. Check FOBT given anemia. Received iron infusion today. Pending EVY profile, aldosterone, ASO, SPEP UPEP kappa lambda ratio. Unable to add beta-blockers due to sinus bradycardia 05/10/2024 ? Clinically improving. -12 L since admission ? Continue Lasix 40 IV twice daily. Monitor urine output, creatinine 1.7 today. Stable from yesterday. ? Plan to switch to oral diuretics in a.m. versus in 48 hours. ? Continue hydralazine 50 3 times daily. Lisinopril adjusted to 5 twice daily today. Aldactone 25 daily added. ? FOBT pending at this time. ? Pending any profile aldosterone ASO SPEP UPEP kappa lambda ratio. ? Keep off of beta-blockers secondary to bradycardia. ? Continue to watch electrolytes. 05/14/2024 Diarrhea has resolved. Diamox stopped. ? 19 L negative since admission ? Stop spironolactone. ? Continue Lasix 40 oral twice daily. ? Continue ciprofloxacin and Flagyl ? Patient is now on room air. ? Thoracentesis could not be performed secondary to not enough fluid present. ? At discharge patient will need outpatient kidney biopsy ? Stool studies are pending however diarrhea has resolved. I would complete 5 days of Cipro and Flagyl total. ? CT soft negative x 2. ? Patient was given IV iron by nephrology. Hemoglobin 8.3. ? Echo did show EF of 35 to 40%. Cardiology did consult on patient earlier. Will reach out to them again regarding further plan going forward. Secondary to elevated creatinine I do not believe he will be a candidate for coronary angiogram at this time however will discuss with cardiology. He will definitely need a cardiac workup. Will discuss with cardiology in detail regarding further care. Have left a message for call back. -Plan to discharge home in next 24 to 48 hours. ? Lisinopril 40 mg daily ordered. Attestations 2 Medical Necessity Statement*: Continue diuresis and ensure electrolytes are stable prior to discharge in a.m. Diagnoses Anasarca R60.1 Fracture of second metatarsal bone of right foot S92.321A Encounter type: subsequent encounter Fracture type: closed
[2024-05-14 12:10] LABS: Albumin,Urine Random 70 %; Alpha-1-Globulins Urine Random 6 %; Alpha-2-Globulins Urine Random 6 %; Beta-Globulin,Urine Random 10 %; Gamma Globulin,Urine Random 8 %
[2024-05-14] MEDS: FUROsemide 40 mg Tablet PO (18:03)
--- NOTE | 2024-05-14 18:28 | P.PN_ITS ---
Subjective 2 Subjective: continues to have edema Medications: Reviewed: Yes Vitals/I&O/Wt Last Vital Signs Temp 98.0 F 05/14/24 16:00 Pulse 53 L 05/14/24 16:00 Resp 18 05/14/24 16:00 BP 145/74 05/14/24 16:00 Pulse Ox 94 05/14/24 16:00 O2 Del Method Room Air 05/14/24 16:00 O2 Flow Rate 2 05/13/24 07:46 05/14/24 05/14/24 05/14/24 06:59 14:59 22:59 Intake Total 540 / 1846 340 / 340 744 / 1084 Output Total 1000 / 4950 600 / 600 2425 / 3025 Balance -460 / -3104 -260 / -260 -1681 / -1941 Weight last 48 hrs Weight 101.877 kg Weight 102.194 kg Physical Exam 2 Narrative: no apparent respiratory distress vital signs noted. HEENT normocephalic atraumatic Neck is supple lungs clear Heart regular positive S1-S2 Abdomen is soft positive bowel sounds. Extremities decreasing significant bilateral 2+ edema in legs and arms dec edema in scrotum and abd neuro awake alert oriented x 3 Data 05/14/24 03:35 05/14/24 03:35 A&P Assessment and plan (1) Proteinuria: The patient is a 58-year-old gentleman who did not have significant medical follow-up. The patient hurt his foot a few weeks ago now comes in with a foot fracture and severe hypertension anasarca 3.6 g of proteinuria creatinine of 1.5 to 1.8 mg/dL and an EF of 35 to 40% - I am concerned that he has BEVERLEY- may benefit from BiPAP at night 1. Acute on CKD with proteinuria. Likely has underlying hypertensive nephrosclerosis but has significant proteinuria more than expected, also may have some acute component due to diarrhea. Renal ultrasound right kidney 13.5 cm right renal artery normal duplex left kidney 13.4 cm also normal renal artery duplex. Patient does have some cyst. -EVY is weakly positive at 1-40, [id number] DNA is negative at 4, normal complements, ANCA still pending, free light chains normal ratio. Hepatitis serologies negative antistreptolysin antibody negative -Patient has anasarca and has been aggressively diuresed, will give IV Lasix 80 mg today and start p.o. Lasix 40 mg twice daily. Titrate lisinopril dose to 40 mg daily -2 g sodium restriction of 1500 mL fluid restriction -Arrange nephrology follow-up in 1 to 2 weeks after discharge and to consider renal biopsy as outpatient.- 2 Anemia - Iron saturation 17% ferritin is 80. On IV iron,, referred to GI as outpatient to rule out GI bleed 3. Replace vitamin D. PTH of 69 should improve once we replace vitamin D. 4. Hypothyroidism, on levothyroxine 5. Heart failure EF of 35 to 40% diffuse reduced EF. . The patient will need full cardiac evaluation when he is stable. Monitor on low-dose BURT inhibitor 6. Metabolic alkalosis from diuresis. Status post acetazolamide 12. Hypertension: Monitor blood pressure closely The patient was seen and examined using audiovisual equipment with the aide of a nurse. The patient consented to telehealth visit. Qualifiers: Proteinuria type: persistent Qualified Code(s): R80.1 - Persistent proteinuria, unspecified Plan see above. Monitor BP, diurese. monitor renal fxn Attestations 2 Medical Necessity Statement*: Per medicine team. Coding Level of Care Code Acute Code for Chg Fwd Diagnoses Persistent proteinuria R80.1 Proteinuria type: persistent
[2024-05-14] MEDS: atorvastatin 40 mg Tablet 80 MG PO (20:35)
[2024-05-15] MEDS: ciprofloxacin 400 MG/200 ML PREMIX 200 MG IV (00:54)
[2024-05-15] MEDS: metroNIDAZOLE IV 500 MG/100 ML PREMIX 100 MG IV (03:35)
[2024-05-15 03:40] VITALS: BP 146/69; PULSE 54; RESP 20; TEMP 36.6; O2SAT 99
[2024-05-15 04:10] LABS: Basophils # 0.1 10^3/uL (0.0-0.1); Basophils % 0.8 %; Eosinophils # 0.3 10^3/uL (0.0-0.8); Eosinophils % 4.3 %; Hematocrit 30.7 % (37-53); Mean Corpuscular Hemoglobin 28.8 pg (27-33); Mean Corpuscular Volume 95.9 fl (82-101); Mean Platelet Volume 11.2 fL (7.4-10.4); Monocytes # 0.8 10^3/uL (0.2-0.9); Monocytes % 12.5 %; Neutrophils # 3.91 10^3/uL (1.8-7.7); Neutrophils % 65.2 %; Nucleated Red Blood Cells % 0 %; Platelet Count 231 10^3/cmm (157-399); Red Cell Distribution Width 14.5 % (12.1-15.1)
[2024-05-15 04:29] LABS: Anion Gap 9.8 (5-19); Blood Urea Nitrogen 28 mg/dL (8-23); Calcium 7.8 mg/dL (8.5-10.5); Carbon Dioxide 30 mmol/L (22-29); Chloride 101 mmol/L (98-107); Creatinine Clr Calc Pharmacy 53.0437; Glomerular Filtration Rate 38.7 mL/min (90-130); Glucose 121 mg/dL (65-115); Magnesium 1.7 mg/dL (1.7-2.3); Osmolality Calculated 291 mOsm/kg (285-295); Potassium 3.8 mmol/L (3.5-5.1); Sodium 137 mmol/L (136-145)
[2024-05-15] MEDS: levothyroxine 50 mcg Tablet PO (05:19)
[2024-05-15 06:00] VITALS: PULSE 65
[2024-05-15 07:19] VITALS: BP 156/81; PULSE 54; RESP 16; TEMP 36.6; O2SAT 96
[2024-05-15] MEDS: lisinopril 20 mg Tablet 40 MG PO (08:36)
[2024-05-15] MEDS: acetaZOLAMIDE 250 mg Tablet PO (08:37)
[2024-05-15] MEDS: FUROsemide 40 mg Tablet PO (08:39)
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
[2024-05-15] MEDS: heparin 5,000 unit/mL INJ 1 mL 5000 UNIT SUBCUT (10:13)
--- NOTE | 2024-05-15 10:19 | P.PN_ITS ---
Subjective 2 Subjective: I saw Mr. Mcgowan this morning this is a 58-year-old gentleman who was admitted with massive fluid overload secondary to combination of congestive heart failure, LVEF 35-40% and nephrotic range proteinuria. He was manage accordingly with good diuretic response. He is currently feels much better. Significant improvement of his volume status. No pulm edema. He still have a mild lower extremity edema. Blood pressure is better controlled and renal functions are stable with creatinine around 1.6-1.8. He is currently ambulating with a walker and denies any anginal symptoms. Plan to discharge him home and follow-up in the cardiology clinic. We will plan for nuclear stress test to rule out cardiac ischemia as underlying cause of low LV systolic function. I prefer nuclear stress testing rather than cardiac cath because of his moderate renal dysfunction. Medications: Medication Review Details: Reviewed current medications. Vitals/I&O/Wt Last Vital Signs Temp 97.8 F 05/15/24 07:19 Pulse 54 L 05/15/24 07:19 Resp 16 05/15/24 07:19 BP 156/81 05/15/24 07:19 Pulse Ox 96 05/15/24 07:19 O2 Del Method Room Air 05/15/24 07:19 O2 Flow Rate 2 05/15/24 03:40 05/14/24 05/15/24 05/15/24 22:59 06:59 14:59 Intake Total 1544 / 1884 300 / 2184 120 / 120 Output Total 3625 / 4225 1400 / 5625 1100 / 1100 Balance -2081 / -2341 -1100 / -3441 -980 / -980 Weight last 48 hrs Weight 209 lb Weight 224 lb 9.6 oz Physical Exam 2 Narrative: Laying comfortably. No respiratory distress. Vitals are stable. Const: COMMON NORMALS: no acute distress, patient oriented x3 and alert HENMT: OTHER: Normal Resp: OTHER: Good air entry bilaterally mildly reduced air entry at the bases bilaterally. Cardio: OTHER: Normal first and second heart sounds. No added sounds. JVD not appreciated. GI: OTHER: Obese soft abdomen. Bowel sounds audible. Extremity: NARRATIVE EXTREMITY EXAM: 1+ pitting edema bilaterally. Neuro: COMMON NORMALS: patient oriented x3 SENSORIUM/ORIENTATION: Yes alert OTHER: Grossly intact. Patient moves all 4 limbs. Skin: NARRATIVE SKIN EXAM: Skin warm and dry. Data 05/15/24 03:43 05/15/24 03:43 A&P Assessment and plan (1) CHF (congestive heart failure): 58-year-old gentleman with massive volume overload on admission due to congestive heart failure as well as nephrotic range proteinuria. 1. Clinically well improved volume status 2. No active angina. 3. His EF 35 to 40%, per etiology. Clinically stable heart failure status. 4. Stable renal status creatinine in the range of 1.6-1.8. Plan: I reviewed his current medication he is on appropriate meds. I reduced the dose of atorvastatin from 80 to 40 mg. Continue rest of his medication as listed. Follow-up in the cardiology clinic in 2 to 3 weeks. Recommend as an outpatient nuclear cardiac stress test. (2) Anasarca: (3) Hypertension: Qualifiers: Hypertension type: primary hypertension Qualified Code(s): I10 - Essential (primary) hypertension Attestations 2 Medical Necessity Statement*: Congestive heart failure Coding Level of Care Code 12788 Diagnoses CHF (congestive heart failure) I50.9 Anasarca R60.1 Primary hypertension I10 Hypertension type: primary hypertension Time Spent (min) 25
[2024-05-15 11:58] VITALS: BP 177/87; PULSE 56; RESP 20; TEMP 36.9; O2SAT 96
[2024-05-15 12:01] VITALS: BP 177/87; PULSE 81; RESP 20; TEMP 37.1; O2SAT 96
--- NOTE | 2024-05-15 12:32 | P.PN_ITS ---
Subjective 2 Subjective: no new c/o Medications: Reviewed: Yes Vitals/I&O/Wt Last Vital Signs Temp 98.7 F 05/15/24 12:01 Pulse 81 05/15/24 12:01 Resp 20 H 05/15/24 12:01 BP 177/87 05/15/24 12:01 Pulse Ox 96 05/15/24 12:01 O2 Del Method Room Air 05/15/24 11:58 O2 Flow Rate 2 05/15/24 03:40 05/14/24 05/15/24 05/15/24 22:59 06:59 14:59 Intake Total 1544 / 1884 300 / 2184 360 / 360 Output Total 3625 / 4225 1400 / 5625 1100 / 1100 Balance -2081 / -2341 -1100 / -3441 -740 / -740 Weight last 48 hrs Weight 94.801 kg Weight 101.877 kg Physical Exam 2 Narrative: no apparent respiratory distress vital signs noted. HEENT normocephalic atraumatic Neck is supple lungs clear Heart regular positive S1-S2 Abdomen is soft positive bowel sounds. Extremities decreasing significant bilateral 2+ edema in legs and arms dec edema in scrotum and abd neuro awake alert oriented x 3 Data 05/15/24 03:43 05/15/24 03:43 A&P Assessment and plan (1) Proteinuria: The patient is a 58-year-old gentleman who did not have significant medical follow-up. The patient hurt his foot a few weeks ago now comes in with a foot fracture and severe hypertension anasarca 3.6 g of proteinuria creatinine of 1.5 to 1.8 mg/dL and an EF of 35 to 40% 1. Acute on CKD with proteinuria. Likely has underlying hypertensive nephrosclerosis but has significant proteinuria more than expected, also may have some acute component due to diarrhea. Renal ultrasound right kidney 13.5 cm right renal artery normal duplex left kidney 13.4 cm also normal renal artery duplex. Patient does have some cyst. -EVY is weakly positive at 1-40, [id number] DNA is negative at 4, normal complements, ANCA still pending, free light chains normal ratio. Hepatitis serologies negative antistreptolysin antibody negative. -on p.o. Lasix 40 mg twice daily. Titrate lisinopril dose to 40 mg daily -2 g sodium restriction of 1500 mL fluid restriction -Arrange nephrology follow-up in 1 to 2 weeks after discharge and to consider renal biopsy as outpatient.- 2 Anemia - Iron saturation 17% ferritin is 80. On IV iron,, referred to GI as outpatient to rule out GI bleed 3. Replace vitamin D. PTH of 69 should improve once we replace vitamin D. 4. Hypothyroidism, on levothyroxine 5. Heart failure EF of 35 to 40% diffuse reduced EF. . The patient will need full cardiac evaluation when he is stable. Monitor on low-dose BURT inhibitor 6. Metabolic alkalosis from diuresis. Status post acetazolamide 7. Hypertension: Monitor blood pressure closely The patient was seen and examined using audiovisual equipment with the aide of a nurse. The patient consented to telehealth visit. Qualifiers: Proteinuria type: persistent Qualified Code(s): R80.1 - Persistent proteinuria, unspecified Plan see above. Monitor BP, diurese. monitor renal fxn Attestations 2 Medical Necessity Statement*: per medicine team Coding Level of Care Code Acute Code for Chg Fwd Diagnoses Persistent proteinuria R80.1 Proteinuria type: persistent
--- NOTE | 2024-05-15 13:07 | PC.NURSE ---
Instruction on what new medications were used for and when to take them where went over with patient. THey were transmitted to Wyatt Malave pt verbalized understanding. Patient's home oxygen eval showed he needed 3 L prn so oxygen order was sent to [facility]. Continuity Coordinator spoke with their asset protection assistantpersonal support worker and he was going to meet Mr Whitaker at his home in [place]. patient discharged via wheelchair to brother with all instructions and appointments.
== END 2024-05-15 13:06 | disposition home or self-care (01) | DRG 682 ==
LOC: ER 10:50 → MEDSURG 14:41 → CSU 05-07 10:39
PROVIDERS: Internal Medicine; Internal Medicine Nephrology; Admitting Provider Student in an Organized Health Care Education/Training Program; Emergency Provider Family Medicine; Visit Provider Internal Medicine
DX: N17.9 Acute kidney failure, unspecified (principal); I50.21 Acute systolic (congestive) heart failure; S92.511K Displaced fracture of proximal phalanx of right lesser toe(s), subsequent encounter for fracture with nonunion; I13.0 Hypertensive heart and chronic kidney disease with heart failure and stage 1 through stage 4 chronic kidney disease, or unspecified chronic kidney disease; E87.20 Acidosis, unspecified; R80.1 Persistent proteinuria, unspecified; V86.95XD Unspecified occupant of 3- or 4- wheeled all-terrain vehicle (ATV) injured in nontraffic accident, subsequent encounter; N18.9 Chronic kidney disease, unspecified; E78.1 Pure hyperglyceridemia; R31.29 Other microscopic hematuria; E03.9 Hypothyroidism, unspecified; D64.9 Anemia, unspecified; R00.1 Bradycardia, unspecified; E66.9 Obesity, unspecified; G47.33 Obstructive sleep apnea (adult) (pediatric); R19.7 Diarrhea, unspecified; E55.9 Vitamin D deficiency, unspecified; Z68.29 Body mass index [BMI] 29.0-29.9, adult
CPT/HCPCS: 29515; 32555; 36415; 71045; 73630; 73700; 74176; 76604; 76705; 80048; 80053; 80061; 81001; 82088; 82274; 82306; 82310; 82436; 82550; 82570; 82728; 83036; 83540; 83550; 83615; 83630; 83735; 83880; 83883; 83970; 84100; 84133; 84155; 84156; 84165; 84166; 84244; 84300; 84439; 84443; 84481; 84484; 85025; 85610; 86036; 86038; 86060; 86160; 86162; 86225; 86235; 86255; 86334; 86376; 86592; 86705; 86706; 86709; 86803; 87045; 87177; 87209; 87340; 87427; 87449; 87493; 87806; 93005; 93306; 93970; 93975; 94760; 96372; 96374; 96375; 96376; 97760; 99285; J0360; J0744; J1644; J1650; J1940; J2916; J3475; J3490; L4361; Q3014

== ENCOUNTER → 2024-05-27 09:11 | Outpatient (BNVA) | payer BC, MEDICAID, SELFPAY | PROVIDERS: PCP Nurse Practitioner; Visit Provider Nurse Practitioner | DX: I11.0 Hypertensive heart disease with heart failure (principal); I50.9 Heart failure, unspecified | CPT/HCPCS: 80053; 83880; 85025 ==

== ENCOUNTER → 2024-05-31 15:54 | Outpatient (BNVA) | payer BC, MEDICAID, SELFPAY | PROVIDERS: PCP Nurse Practitioner; Visit Provider Podiatrist Foot & Ankle Surgery | DX: S92.311A Displaced fracture of first metatarsal bone, right foot, initial encounter for closed fracture; S92.321A Displaced fracture of second metatarsal bone, right foot, initial encounter for closed fracture; S92.911A Unspecified fracture of right toe(s), initial encounter for closed fracture; X58.XXXA Exposure to other specified factors, initial encounter | CPT/HCPCS: 73630 ==

== ENCOUNTER 2024-06-11 09:23 | Outpatient (CLI) | payer BC, MEDICAID, SELFPAY ==
[2024-06-11 10:03] LABS: Basophils # 0.1 10^3/uL (0.0-0.1); Basophils % 1.2 %; Eosinophils # 0.6 10^3/uL (0.0-0.8); Eosinophils % 7.2 %; Hematocrit 31.7 % (37-53); Lymphocytes # 1.2 10^3/uL (0.8-4.8); Lymphocytes % 15.5 %; Mean Corpuscular HGB Conc 31.5 g/dL (30-55); Mean Corpuscular Hemoglobin 29.9 pg (27-33); Mean Corpuscular Volume 94.9 fl (82-101); Mean Platelet Volume 10.7 fL (7.4-10.4); Monocytes # 0.8 10^3/uL (0.2-0.9); Monocytes % 10.8 %; Neutrophils # 4.94 10^3/uL (1.8-7.7); Neutrophils % 65.2 %; Nucleated Red Blood Cells % 0 %; Platelet Count 243 10^3/cmm (157-399); Red Blood Count 3.34 10^6/uL (3.85-5.65); Red Cell Distribution Width 14.4 % (12.1-15.1); White Blood Count 7.59 10^3/uL (3.29-11.43)
[2024-06-11 10:32] LABS: Alanine Aminotransferase 33 U/L (0-41); Albumin Level 3.2 g/dL (3.5-5.2); Alkaline Phosphatase 113 U/L (40-130); Anion Gap 12.6 (5-19); Aspartate Amino Transferase 28 U/L (0-40); Blood Urea Nitrogen 33 mg/dL (8-23); Calcium 9.1 mg/dL (8.5-10.5); Carbon Dioxide 32 mmol/L (22-29); Chloride 98 mmol/L (98-107); Globulin 3.1 g/dL (1.3-4.6); Glomerular Filtration Rate 38.7 mL/min (90-130); Glucose 157 mg/dL (65-115); NT Pro B Type Natriuretic Pept 25678 pg/mL (0-125); Osmolality Calculated 299 mOsm/kg (285-295); Potassium 3.6 mmol/L (3.5-5.1); Sodium 139 mmol/L (136-145); Total Bilirubin 0.5 mg/dL (0.15-1.2); Total Protein 6.3 g/dL (6.6-8.7)
== END 2024-06-11 09:24 | disposition home or self-care (01) ==
LOC: LAB 09:25
PROVIDERS: PCP Nurse Practitioner; Visit Provider Nurse Practitioner Family
DX: I50.9 Heart failure, unspecified (principal)
CPT/HCPCS: 80053; 83880; 85025

== ENCOUNTER 2024-06-15 05:47 | Outpatient (CLI) | payer BC, MEDICAID, SELFPAY ==
[2024-06-15] VITALS (16 sets, daily range): BP systolic 133–190; BP diastolic 66–98; PULSE 51–76; RESP 0–92; TEMP 37.2; O2SAT 92–97; BMI 25.7
[2024-06-15] MEDS: sodium chloride 0.9% 1,000 ML 100 ML IV (06:15)
[2024-06-15] MEDS: aspirin 325 mg Tablet PO (06:20)
--- NOTE | 2024-06-15 07:04 | XACV_ITS ---
Exam Room: 2 Ht: 180 cm Wt: 84 kg BSA: 2.06 m2 Gender: Male : 1965 Any Known Allergies: Other Exam Priority: Routine Procedure(s): Procedure Description: Diagnostic procedure Procedure Description: Left Heart Catheterization Procedure Description: Coronary Angiography Diagnostic Cath Status: Elective Diagnostic Findings * INDICATION: LV dysfunction. * Left Main has mild luminal irregularities. * Circumflex has mild luminal irregularities. * Right Coronary Artery has mild luminal irregularities. * LAD has diffuse mild to moderate luminal irregularities. Distal Left Anterior Descending: mild 40% stenosis, ALEXANDER: 3 flow. * 2nd Diagonal: severe 90% stenosis, ALEXANDER: 3 flow. * Coronary angiography shows right dominance. Conclusions 1. Non-ischemic cardiomyopathy. Recommendations * Guideline directed heart failure therapy. * Outpatient cardiology follow up in 2 weeks. Interventional RX Recommendation: medical therapy and/or counseling Diagnostic RX Recommendation: medical therapy and/or counseling Anticoagulation: Heparin Pressures Phase:Rest AO : 169 / 64 ( 102 ) @ 11:35:00 AM 179 / 82 ( 117 ) @ 11:38:00 AM 181 / 82 ( 118 ) @ 11:38:00 AM LV : 185 / 7 / 19 @ 11:37:00 AM 184 / 7 / 20 @ 11:38:00 AM Valves Phase:DefaultPhase AV : 4.0 @ 11:53:17 AM AV Mean Gradient: 11.0 @ 11:53:17 AM Clinical Evaluation EBL: 5mL-10mL Procedural Details Procedure Consent Obtained. Admit Source: Out Patient. Pre-Procedure Time Out. Identified patient by full name and date of as verbalized by the patient/guarantor. Does the consent match the physician's order: Yes. Accurate & Complete Informed Consent: Yes. Inpatient/Outpatient History & Physical on Chart: Yes. If H&P is completed, is and addenduem needed: No; If yes, is the addendum complete: N/A. Visualize and Verify Site with Patient/Guarantor: N/A. Relevant Radiology Images available: No. The risks, benefits, and alternatives of sedation and/or procedure were discussed by physician. The patient agrees to continue. Procedure started. [facility] Clinical Fraility Score: 5: Mildly Frail. Carton Catcher Indications: LV Dysfunction. Correct patient, site and procedure confirmed by cath team. Current diagnosis: LV dysfunction, CHF. PERRLA. Strong, equal hand counter dish carrier bilaterally. Lungs clear x 5 lobes. IV Site on Arrival: 20 gauge in the left forearm. IV Fluids: 0.9% NaCl at 75ml/hr. 600 mL infused prior to roving tester laboratory. Pre Procedural Pulses: bilateral radial was 3+. Pre Procedural Pulses: bilateral posterior tibial was 1+. Pre Procedural Pulses: bilateral dorsalis pedis was 1+. Oxygen started at 2liters/min via nasal canula. right radial was prepped with chloroprep then draped in the usual sterile fashion. right groin was prepped with chloroprep then draped in the usual sterile fashion. Physician notified. Baseline sample Acquired. HR: 58 BPM. Physician arrived. Physician scrubbed in. Immediate Pre-Procedure Time Out. Correct Patient: Yes; Correct Procedure: Yes; Correct Site: Yes; Correct Patient Position: Yes; Correct Supplies: Yes; Dried Flammable Prep: Yes; Blood Products Available: No;. Lidocaine 1% infiltrated to the right radial. Arterial access obtained. A 5 samoan TIG catheter in over wire. EDP Sample taken: LV 185/7,19; HR: 51 BPM; SpO2: Off%. Pullback taken: LV 184/7,20; AO 179/82(117); Mean: 11mmHg, Peak to Peak: 4mmHg, SEP: 14sec/min; HR: 51 BPM; SpO2: 98%. Catheter redirected to the LCA. Multiple views taken of left coronary artery. Catheter redirected to the RCA. Multiple views taken of right coronary artery. Catheter removed over the exchange wire. Physician scrubbed out. Post Procedure: Pulses reassessed and unchanged. PERRLA. Strong, equal hand counter dish carrier bilaterally. No VTE prophylaxis required. A TR Band was successful obtaining hemostatsis at the Right Radial artery insertion site. Medication's Wasted: Lidocaine 1% = 18 mL. Medication's Wasted: Nitro = 49.7 mg. Medication's Wasted: Heparin = 2000 unit. Medication's Wasted: Other = Fentanyl 25mcg. Total IV fluids: 25 mL. Post-op diagnosis: Non-ischemic cardiomyopathy. Complications: None. Estimated blood loss: 5mL-10mL. Responsiveness - Normal response to verbal stimuli; alert and oriented, PERRLA. Airway - Unaffected, no intervention required; spontaneous ventilation. Circulation: W/N/L, pulses unchanged. Nausea/Vomiting: No. Procedure completed. Patient transferred by stretcher to CPRU. Vital chart was stopped. Access Site Site: Right Radial artery Sheath Size: 6 Fr Hemostasis Method: TR Band Hemostasis Success: Successful Procedure Medications Start: 11:29 AM Stop: 11: AM Medication: Versed Amount: 1 mg Route: I.V. Start: 11:29 AM Stop: 11: AM Medication: Fentanyl Amount: 50 mcg Route: I.V. Start: 11:32 AM Stop: 11:32 AM Medication: Versed Amount: 1 mg Route: I.V. Start: 11:34 AM Stop: 11:34 AM Medication: Nitrogylcerin Amount: 300 mcg Route: I.A. Start: 11:35 AM Stop: 11:35 AM Medication: Hydralazine Amount: 10 mg Start: 11:37 AM Stop: 11:37 AM Medication: Heparin Amount: 4000 units Route: I.V. Start: 11:43 AM Stop: 11:43 AM Medication: Fentanyl Amount: 25 mcg Route: I.V. I, the attending physician, have reviewed and verified all procedure medications. Yes, all medications given per verbal order History/Risk Factors Hypertension: Yes Dyslipidemia: Yes Peripheral Arterial Disease (PAD): No Myocardial Infarction (IL): No Obesity: No Renal Disease: No Prior Interventions PCI: No CABG: No Valve Surgery: No Report Signatures Finalized by Yossi Fried MD on 06/22/2024 11:54 AM
[2024-06-15] MEDS: diphenhydrAMINE 50 mg Capsule PO (09:41)
--- NOTE | 2024-06-15 11:13 | W.PM.OPSUD ---
Surgery/Procedure H&P Update DATE OF PROCEDURE: June 15, 2024 DATE H&P PERFORMED: 05/27/24 H&P UPDATE INFORMATION: I have reviewed H&P completed within last 30 days, I have examined patient prior to procedure and No changes to prior documentation PREOP DIAGNOSIS: LV Dysfunction PRIMARY INDICATION FOR PROCEDURE: LV Dysfunction PLANNED PROCEDURE: Operation Date: 06/15/24 08:30 Proposed Procedures p Cardiac Catheterization - [facility] w/wo LV & Coros(Left) - Yossi Fried M.D Possible percutaneous coronary intervention PATIENT REASSESSED PRIOR TO SEDATION, WITH NO CHANGE NOTED: Yes PHYSICAL EXAM: alert, oriented x 3, clear to auscultation bilaterally and regular rate & rhythm AIRWAY EVAL/ANESTHESIA PLAN: normal airway, ASA III, Local Anesthesia, Risks, benefits & alternatives of sedation and/or procedure discussed and Patient agrees to continue as planned ADDITIONAL INFORMATION: Moderate sedation
--- NOTE | 2024-06-15 12:00 | SUR.PHASEII ---
Received the patient back from the fish hatchery laborer via bed s/p Diagnostic [facility]. Patient drowsy but awakens easily to verbal stimuli. A & 0 x 3. poker prop player placed and vital signs obtained. TR x 2 band intact to the right wrist. No bleeding or hematoma noted. Palpable radial pulse. No other assessment changes noted from pre cath assessment. Family at bedside. No concerns voiced at this time.
--- NOTE | 2024-06-15 12:00 | PM.PROC ---
Procedure Note: Date of procedure: 06/15/24 Pre-procedure diagnosis: LV dysfunction Post-procedure diagnosis: same Procedure: Left heart cath: Left main artery is patent. LAD has mild to moderate diffuse luminal irregularities. No severe stenosis. Second diagonal artery has severe stenosis. RCA has mild to moderate luminal irregularities. Left circumflex artery has mild to moderate luminal irregularities with no significant stenosis. Nonischemic cardiomyopathy. Recommendations: Aggressive guideline directed heart failure medical therapy. Blood pressure control. Outpatient cardiology follow-up Op report anesthesia: Local (Moderate sedation) Performing Provider: Yossi Fried Estimated blood loss (mL): 5 Complications: None Pathology: none sent Condition: stable Disposition: same day (Same day discharge) Coding Level of Care Code Acute Code for Chg Fwandre
--- NOTE | 2024-06-15 13:00 | SUR.PHASEII ---
Letting the air out of the proximal most TR band. No other assessment changes at this time.
--- NOTE | 2024-06-15 14:00 | SUR.PHASEII ---
The proximal most TR band is off with no bleeding or hematoma noted. Radial pulse remains present. Now letting the air out of the distal most TR band. No other assessment changes at this time.
--- NOTE | 2024-06-15 15:07 | PC.NURSE ---
TR band off @ 1505, no bleeding or hematoma noted at this time.
--- NOTE | 2024-06-15 16:10 | SUR.PHASEII ---
Patient discharged home via wheelchair with his brother.
== END 2024-06-15 16:34 | disposition home or self-care (01) ==
PROVIDERS: PCP Nurse Practitioner; Visit Provider Internal Medicine
DX: I42.8 Other cardiomyopathies (principal); E78.5 Hyperlipidemia, unspecified; Z79.82 Long term (current) use of aspirin; I11.0 Hypertensive heart disease with heart failure; I50.9 Heart failure, unspecified; N28.9 Disorder of kidney and ureter, unspecified; S92.312A Displaced fracture of first metatarsal bone, left foot, initial encounter for closed fracture; X58.XXXA Exposure to other specified factors, initial encounter; R60.1 Generalized edema
CPT/HCPCS: 36415; 93458; 96360; 96361; 96365; 96374; 96375; 99152; C1769; C1887; C1894; J0360; J1644; J2250; J3010; J3490; J7030; Q0163; Q9967

== ENCOUNTER 2024-06-18 09:30 | Outpatient (CLI) | payer BC, MEDICAID, SELFPAY ==
[2024-06-18 10:27] LABS: Anion Gap 14.1 (5-19); Blood Urea Nitrogen 37 mg/dL (8-23); Carbon Dioxide 29 mmol/L (22-29); Chloride 98 mmol/L (98-107); Glomerular Filtration Rate 38.7 mL/min (90-130); Glucose 226 mg/dL (65-115); NT Pro B Type Natriuretic Pept 27949 pg/mL (0-125); Osmolality Calculated 300 mOsm/kg (285-295); Potassium 4.1 mmol/L (3.5-5.1); Sodium 137 mmol/L (136-145)
== END 2024-06-18 09:31 | disposition home or self-care (01) ==
LOC: LAB 09:31
PROVIDERS: PCP Nurse Practitioner; Visit Provider Nurse Practitioner Family
DX: I50.9 Heart failure, unspecified (principal)
CPT/HCPCS: 36415; 80048; 83880

== ENCOUNTER → 2024-06-28 13:03 | Outpatient (BNVA) | payer BC, MEDICAID, SELFPAY | PROVIDERS: PCP Nurse Practitioner; Visit Provider Podiatrist Foot & Ankle Surgery | DX: S92.312D Displaced fracture of first metatarsal bone, left foot, subsequent encounter for fracture with routine healing; X58.XXXD Exposure to other specified factors, subsequent encounter | CPT/HCPCS: 73630 ==

== ENCOUNTER 2024-07-04 16:18 | Emergency (ER) | payer BC, MEDICAID, SELFPAY ==
[2024-07-04] VITALS (36 sets, daily range): BP systolic 131–184; BP diastolic 63–96; PULSE 50–61; RESP 10–29; TEMP 36.6; O2SAT 84–99; BMI 24.3
--- NOTE | 2024-07-04 16:26 | ECG_ITS ---
[facility] Date: 2024-07[facility]04 Pat Name: Hector Whitaker Department: Room: Gender: Male [employer] Magistrate: : 1965 Requested By: Jim Mendez Order Number: [id number] Michelle MD: Yossi Fried M.D. Measurements Intervals [place] Rate: 53 P: -2 NC: 201 QRS: -43 QRSD: 140 T: 103 QT: 440 QTc: 416 Interpretive Statements SINUS BRADYCARDIA LEFT AXIS DEVIATION [QRS AXIS < -30] LEFT BUNDLE BRANCH BLOCK [120+ ms QRS DURATION, 80+ ms Q/S IN V1/V2, 85+ ms R IN I/aVL/V5/V6] Compared to ECG 05/05/2024 20:09:11 Left-axis deviation now present Myocardial infarct finding no longer present Electronically Signed On 07-04-2024 20:03:29 USABILITY ENGINEER by Yossi Fried M.D. [email or web address]
[2024-07-04 17:10] LABS: ABG PCO2 37.9 mmHg (35-45); ABG PH Result 7.47 (7.35-7.45); Arterial Blood Gas Hematocrit 32.4 % (42-52); Base Excess ABG 3.6 mmol/L (-2.0-2.0); Blood Gas Allen Test Pos; Blood Gas Operator Identificat CAK; Blood Gas Sample Site Radial, left; Blood Gas Sample Type Arterial; HCO3 ABG 27.5 mmol/L (22-26); Oxygen Device ROOM AIR; PO2 ABG 79.9 mmHg (80.0-100.0); PO2 FiO2 Ratio Arterial Blood 380
[2024-07-04 17:12] LABS: Basophils # 0.1 10^3/uL (0.0-0.1); Basophils % 0.7 %; Eosinophils % 0.1 %; Hematocrit 32.3 % (37-53); Lymphocytes # 1.2 10^3/uL (0.8-4.8); Mean Corpuscular HGB Conc 32.8 g/dL (30-55); Mean Corpuscular Volume 91.5 fl (82-101); Mean Platelet Volume 10.9 fL (7.4-10.4); Monocytes # 1.2 10^3/uL (0.2-0.9); Monocytes % 17.2 %; Neutrophils # 4.55 10^3/uL (1.8-7.7); Neutrophils % 64.7 %; Nucleated Red Blood Cells % 0 %; Platelet Count 233 10^3/cmm (157-399); Red Blood Count 3.53 10^6/uL (3.85-5.65); Red Cell Distribution Width 13.8 % (12.1-15.1); White Blood Count 7.04 10^3/uL (3.29-11.43)
[2024-07-04 17:40] LABS: Alanine Aminotransferase 89 U/L (0-41); Albumin Level 3.3 g/dL (3.5-5.2); Alkaline Phosphatase 90 U/L (40-130); Anion Gap 15.7 (5-19); Aspartate Amino Transferase 62 U/L (0-40); Blood Urea Nitrogen 49 mg/dL (8-23); Calcium 9.2 mg/dL (8.5-10.5); Carbon Dioxide 27 mmol/L (22-29); Chloride 93 mmol/L (98-107); Creatinine Clr Calc Pharmacy 34.1111; Globulin 3.6 g/dL (1.3-4.6); Glomerular Filtration Rate 26.5 mL/min (90-130); Glucose 154 mg/dL (65-115); Magnesium 2.2 mg/dL (1.7-2.3); NT Pro B Type Natriuretic Pept 7982 pg/mL (0-125); Osmolality Calculated 290 mOsm/kg (285-295); Potassium 3.7 mmol/L (3.5-5.1); Sodium 132 mmol/L (136-145); Thyroid Stimulating Hormone 5.36 uIU/mL (0.27-4.20); Total Bilirubin 0.6 mg/dL (0.15-1.2); Total Protein 6.9 g/dL (6.6-8.7)
[2024-07-04 17:54] LABS: Troponin(5th) Baseline 241 ng/L (0-15)
--- NOTE | 2024-07-04 18:09 | ED_ITS ---
HPI - Syncope 2 General: Chief Complaint: Syncope Stated Complaint: syncope Time Seen by Provider: 07/04/24 16:18 History of Present Illness: Patient presents to the ER after having syncopal episode x 2. Patient stated yesterday he got up was going to the bathroom took about 4 steps next and he remembers is laying in the floor. He thinks he hit the door frame on his right head region on the way down. Today he went to the refrigerator turned around and less than remembers getting up off the floor. Says that he is orthostatic events it only happen when he gets up and takes off walking. Patient did say he had a recent blood pressure medicine change. Patient had a heart cath approximately month ago here with no complications and he said it was normal. Related Data Home Medications Medication Instructions Recorded Confirmed multivitamin with minerals 1 tab PO DAILY 05/05/24 06/28/24 Previous Rx's Medication Instructions Recorded ciprofloxacin HCl 500 mg tablet 500 mg PO BID #6 tabs 05/15/24 levothyroxine 50 mcg tablet 50 mcg PO QAM #30 tabs 05/15/24 aspirin 81 mg tablet,delayed 81 mg PO DAILY #30 tabs 05/28/24 release atorvastatin 40 mg tablet 40 mg PO BEDTIME #90 tabs 05/28/24 dapagliflozin propanediol 10 mg 10 mg PO DAILY #90 tabs 05/28/24 tablet (Farxiga) furosemide 40 mg tablet 40 mg PO BID@08,16 #60 tabs 05/28/24 losartan 50 mg tablet 50 mg PO DAILY #30 tabs 06/15/24 Diabetic Shoes #1 ea 06/28/24 Allergies Allergy/AdvReac Type Severity Reaction Status Date / Time bee venom protein (honey bee) Allergy CAMERONY-Swell Verified 06/28/24 13:00 Lip/Tongue/Throat Review of Systems 2 General: Reports: 10 or more systems reviewed and unremarkable except in HPI and below PFSH ED 2 PFSH: Social History Smoking and tobacco/nicotine status: never used tobacco/nicotine Physical Exam 2 Const: COMMON NORMALS: no acute distress, average body habitus, patient oriented x3, no limitations, healthy appearing, alert and well nourished HENMT: COMMON NORMALS: normocephalic; head/scalp not atraumatic (Bruising around right periorbital region, large right hematoma above right ) HEAD & SCALP: normocephalic; not atraumatic (Bruising around right periorbital region, large right hematoma above right ) Eye: COMMON NORMALS: Equal, round and reactive pupils present, EOMs intact bilaterally, conjunctivae normal and no scleral icterus CONJUNCTIVA: Yes conjunctivae normal PUPIL: Yes Equal, round and reactive pupils present Neck/C-Spine: COMMON NORMALS: full ROM, no lymphadenopathy, supple, no meningeal signs, no JVD and Thyroid normal THYROID: Thyroid normal Chest: COMMONS NORMALS: normal inspection of the chest; negative for normal palpation of entire chest wall (Tender to palpate left lateral chest wall.) Resp: COMMON NORMALS: normal respiratory effort, No retractions, No use of accessory muscles and clear to auscultation bilaterally AUSCULTATION: clear to auscultation bilaterally Cardio: COMMON NORMALS: no JVD, regular rate, regular rhythm, S1 normal heart sound present, S2 normal heart sound present, No gallops present (Cardio), No clicks present (Cardio), No murmurs present (Cardio) and No rub (Cardio) R ATE: regular rate RHYTHM: regular rhythm HEART SOUNDS: S1 normal heart sound present and S2 normal heart sound present GI: COMMON NORMALS: Normal to inspection, nondistended, normoactive bowel sounds present, Soft to palpation, non-tender, No hepatosplenomegaly present and no masses PALPATION: Yes Soft to palpation and Yes No hepatosplenomegaly present Neuro: COMMON NORMALS: patient oriented x3 SENSORIUM/ORIENTATION: Yes alert MENINGEAL SIGNS: Yes no meningeal signs Course 2 Vital Signs: Vital signs: Vital Signs Temperature 97.8 F 07/04/24 16:19 Pulse Rate 54 L 07/04/24 20:20 Respiratory Rate 16 07/04/24 20:10 Blood Pressure 147/78 07/04/24 20:20 Pulse Oximetry 96 07/04/24 20:20 Oxygen Delivery Me thod Room Air 07/04/24 16:19 MDM - Syncope Medical Decision Making Lab work was reviewed patient BUN/creatinine which normally at low potassium elevated more 49 and 2.5, head CT was negative, chest CT showed left seventh and eighth lateral rib fractures, orthostatics was positive for dropping about 40 points between lying down and standing up with approximately no change in heart rate. These results was discussed with the patient. Patient referred back to family physician Medical Records I reviewed the patient's medical records. Lab Data I reviewed the patient's lab results. 07/04/24 16:50 07/04/24 16:[address] 07/04/24 18:15 IMPRESSION: Acute left posterolateral 7th and 8th rib fractures. Impression. Head CT 07/04/24 18:15 IMPRESSION: No acute intracranial abnormality. Laboratory Results WBC 7.04 10^3/uL (3.29-11.43) 07/04/24 16:50 RBC 3.53 10^6/uL (3.85-5.65) L 07/04/24 16:50 Hgb 10.60 g/dL (11.27-16.99) L 07/04/24 16:50 Hct 32.3 % (37-53) L 07/04/24 16:50 MCV 91.5 fl (82-101) 07/04/24 16:50 MCH 30.0 pg (27-33) 07/04/24 16:50 MCHC 32.8 g/dL (30-55) 07/04/24 16:50 RDW 13.8 % (12.1-15.1) 07/04/24 16:50 Plt Count 233 10^3/cmm (157-399) 07/04/24 16:50 MPV 10.9 fL (7.4-10.4) H 07/04/24 16:50 Neut % (Auto) 64.7 % 07/04/24 16:50 Lymph % (Auto) 17.0 % 07/04/24 16:50 [place] % (Auto) 17.2 % 07/04/24 16:50 Eos % (Auto) 0.1 % 07/04/24 16:50 Baso % (Auto) 0.7 % 07/04/24 16:50 Neut # (Auto) 4.55 10^3/uL (1.8-7.7) 07/04/24 16:50 Lymph # (Auto) 1.2 10^3/uL (0.8-4.8) 07/04/24 16:50 [place] # (Auto) 1.2 10^3/uL (0.2-0.9) H 07/04/24 16:50 Eos # (Auto) 0.0 10^3/uL (0.0-0.8) 07/04/24 16:50 Baso # (Auto) 0.1 10^3/uL (0.0-0.1) 07/04/24 16:50 Nucleated RBC % (auto) 0 % 07/04/24 16:50 Nucleated RBCs # 0.0 /100WBC 07/04/24 16:50 Specimen Type Arterial 07/04/24 16:59 Sample Site Radial, left 07/04/24 16:59 ABG pH 7.47 (7.35-7.45) H 07/04/24 16:59 ABG pCO2 37.9 mmHg (35-45) 07/04/24 16:59 ABG pO2 79.9 mmHg (80.0-100.0) L 07/04/24 16:59 ABG PO2/FiO2 Ratio 380 07/04/24 16:59 ABG HCO3 27.5 mmol/L (22-26) H 07/04/24 16:59 ABG Base Excess 3.6 mmol/L (-2.0-2.0) H 07/04/24 16:59 Cristobal Test Pos 07/04/24 16:59 Hematocrit 32.4 % (42-52) L 07/04/24 16:59 O2 Delivery Device Room air 07/04/24 16:59 FiO2 21.0 % 07/04/24 16:59 Cigar Sorter ID Cak 07/04/24 16:59 Sodium 132 mmol/L (136-145) L 07/04/24 16:50 Potassium 3.7 mmol/L (3.5-5.1) 07/04/24 16:50 Chloride 93 mmol/L (98-107) L 07/04/24 16:50 Carbon Dioxide 27 mmol/L (22-29) 07/04/24 16:50 Anion Gap 15.7 (5-19) 07/04/24 16:50 BUN 49 mg/dL (8-23) H 07/04/24 16:50 Creatinine 2.5 mg/dL (0.7-1.2) H 07/04/24 16:50 GFR Calculation 26.5 mL/min (90-130) L 07/04/24 16:50 Glucose 154 mg/dL (65-115) H 07/04/24 16:50 Calculated Osmolality 290 mOsm/kg (285-295) 07/04/24 16:50 Calcium 9.2 mg/dL (8.5-10.5) 07/04/24 16:50 Magnesium 2.2 mg/dL (1.7-2.3) 07/04/24 16:50 Total Bilirubin 0.6 mg/dL (0.15-1.2) 07/04/24 16:50 AST 62 U/L (0-40) H 07/04/24 16:50 ALT 89 U/L (0-41) H 07/04/24 16:50 Alkaline Phosphatase 90 U/L (40-130) 07/04/24 16:50 Troponin T Baseline 241 ng/L (0-15) H* 07/04/24 16:50 Troponin T 120 Minute 224.5 ng/L (0-15) H 07/04/24 18:41 Delta Troponin T -16.5 ABS# (0-10) L 07/04/24 18:41 NT-Pro-B Natriuret Pep 7982 pg/mL (0-125) H 07/04/24 16:50 Total Protein 6.9 g/dL (6.6-8.7) 07/04/24 16:50 Albumin 3.3 g/dL (3.5-5.2) L 07/04/24 16:50 Globulin 3.6 g/dL (1.3-4.6) 07/04/24 16:50 TSH 5.36 uIU/mL (0.27-4.20) H 07/04/24 16:50 All radiology interpretation(s) finalized by discharge Discharge Plan Discharge Patient Disposition: Home Clinical Impression: Syncope due to orthostatic hypotension Fracture, ribs Qualifiers: Encounter type: initial encounter Fracture type: closed Laterality: left Q ualified Code(s): S22.42XA - Multiple fractures of ribs, left side, initial encounter for closed fracture Facial hematoma Qualifiers: Encounter type: initial encounter Qualified Code(s): S00.83XA - Contusion of other part of head, initial encounter Condition: Stable Prescriptions: No Action atorvastatin 40 mg tablet 40 mg PO BEDTIME Qty: 90 0RF furosemide 40 mg tablet 40 mg PO BID@08,16 Qty: 60 0RF dapagliflozin propanediol [Farxiga] 10 mg tablet 10 mg PO DAILY Qty: 90 0RF aspirin 81 mg tablet,delayed release (DR/EC) 81 mg PO DAILY Qty: 30 0RF (DME) Diabetic Shoes See Rx Instructions .Route .MEDSUPPLY Qty: 1 0RF Rx Instructions: As directed by Home multivitamin with minerals Tablet 1 tab PO DAILY levothyroxine 50 mcg Tablet 50 mcg PO QAM Qty: 30 0RF ciprofloxacin HCl 500 mg tablet 500 mg PO BID Qty: 6 0RF losartan 50 mg tablet 50 mg PO DAILY Qty: 30 0RF Discharge Orders: Discharge ED (Routine); Ordered 07/04/24 Ordered By: Melvin Pfeiffer Referrals: Nicole Gross FNP [Primary Care Provider] - 1 week Patient Instructions: Chronic Kidney Disease Diet (DC), Rib Fracture (ED), Hypotension (ED), Facial Contusion (ED), Syncope in Older Adults (ED) Activity Restrictions/Additional Instructions: Thank you for choosing [facility] for your healthcare needs today. Please realize that you were seen in the emergency department and that we are providing you with an emergency medical screening exam and this may not be a complete and all exclusive of all testing and/or medical workup we may need to determine your element or severity of your illness. It is very important that you follow-up as instructed with your primary care provider or specialist for the additional evaluation and to discuss your medical treatment plan. You may return to the emergency department should you have concerns or if your condition changes or worsens in any way. Coding Level of Care Code ED Nurse Recruiter for [facility]
--- NOTE | 2024-07-04 18:15 | CTR_ITS ---
PROCEDURE INFORMATION: Exam: CT Head Without Contrast Exam date and time: 07/04/2024 6:27 PM Age: 58 years old Clinical indication: Injury or trauma; Blunt trauma (contusions or hematomas); Patient HX: Patient sustained a fall. Contusion to RT orbit with hematoma to RT frontal. ; Additional info: Fall trauma large hematoma right orbital region TECHNIQUE: Imaging protocol: Computed tomography of the head without contrast. Radiation optimization: All CT scans at this facility use at least one of these dose optimization techniques: automated exposure control; mA and/or kV adjustment per patient size (includes targeted exams where dose is matched to clinical indication); or iterative reconstruction. COMPARISON: No relevant prior studies available. RADIATION DOSE METRICS: Total DLP (mGy-cm): 1152.28 FINDINGS: Brain: No hemorrhage. No edema. Mild diffuse cerebral atrophy and sequela of chronic small vessel ischemic disease. No mass effect. Cerebral ventricles: No ventriculomegaly. Paranasal sinuses: Visualized sinuses are unremarkable. No fluid levels. Mastoid air cells: Visualized mastoid air cells are well aerated. Bones: Unremarkable. No acute fracture. Soft tissues: Forehead hematoma. CT/CT head wo con* [id number] IMPRESSION: No acute intracranial abnormality.
--- NOTE | 2024-07-04 18:15 | CTR_ITS ---
PROCEDURE INFORMATION: Exam: CT Chest Without Contrast; Diagnostic Exam date and time: 07/04/2024 6:30 PM Age: 58 years old Clinical indication: Injury or trauma; Blunt trauma (contusions or hematomas); Patient HX: Patient sustained a fall. C/O left lateral rib pain. History of chf. ; Additional info: Fall left lateral rib pain TECHNIQUE: Imaging protocol: Diagnostic computed tomography of the chest without contrast. Radiation optimization: All CT scans at this facility use at least one of these dose optimization techniques: automated exposure control; mA and/or kV adjustment per patient size (includes targeted exams where dose is matched to clinical indication); or iterative reconstruction. COMPARISON: CR XR chest 1V portable [id number] 05/05/2024 10:37 AM RADIATION DOSE METRICS: Total DLP (mGy-cm): 356.48 FINDINGS: Lungs: Unremarkable. No consolidation. No masses. Pleural spaces: Unremarkable. No pneumothorax. No pleural effusion. Heart: Mild pericardial fluid and/or thickening. Coronary arteries: Mild calcified LAD coronary artery disease. Lymph nodes: Unremarkable. No enlarged lymph nodes. Vasculature: Normal variant common origin of the left common carotid artery and innominate artery consistent with bovine arch. Diaphragm: Stable large intrathoracic hiatal hernia. Bones/joints: Acute left posterolateral 7th and 8th rib fractures. Soft tissues: Unremarkable. CT/CT chest con [id number] IMPRESSION: Acute left posterolateral 7th and 8th rib fractures. Impression.
--- NOTE | 2024-07-04 18:41 | ECG_ITS ---
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 Measurements Intervals [place] Rate: 57 P: -74 MS: 206 QRS: -28 QRSD: 146 T: 96 QT: 438 QTc: 429 Interpretive Statements SINUS BRADYCARDIA INTRAVENTRICULAR CONDUCTION DELAY [130+ ms QRS DURATION] Compared to ECG 07/04/2024 16:26:54 Intraventricular conduction delay now present Left-axis deviation no longer present Left bundle-branch block no longer present Electronically Signed On 07-04-2024 20:10:30 RECLAMATION ENGINEER by Yossi Fried M.D. [id number]
[2024-07-04 19:04] LABS: Troponin 5 2HR Delta -16.5 ABS# (0-10)
[2024-07-04 19:05] LABS: Troponin 5 2HR 224.5 ng/L (0-15)
--- NOTE | 2024-07-04 22:39 | ECG_ITS ---
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 Measurements Intervals [place] Rate: 53 P: 66 [place]: 136 QRS: -69 QRSD: 139 T: 94 QT: 433 QTc: 407 Interpretive Statements SINUS BRADYCARDIA LEFT AXIS DEVIATION [QRS AXIS < -30] INTRAVENTRICULAR CONDUCTION DELAY [130+ ms QRS DURATION] SEPTAL MYOCARDIAL INFARCTION AGE INDETERMINATE Compared to ECG 07/04/2024 18:41:41 Left-axis deviation now present Myocardial infarct finding now present Electronically Signed On 07-04-2024 20:15:03 RELIGIOUS EDUCATION TEACHER by Yossi Fried M.D. [id number]
== END 2024-07-04 21:53 | disposition home or self-care (01) ==
PROVIDERS: Emergency Medicine; Emergency Provider Emergency Medicine; PCP Nurse Practitioner
DX: I95.1 Orthostatic hypotension (principal); S22.42XA Multiple fractures of ribs, left side, initial encounter for closed fracture; S00.83XA Contusion of other part of head, initial encounter; W19.XXXA Unspecified fall, initial encounter; Z79.82 Long term (current) use of aspirin
CPT/HCPCS: 36415; 36600; 70450; 71250; 80053; 82803; 83735; 83880; 84443; 84484; 85025; 93005; 99284

== ENCOUNTER 2024-07-06 11:01 | Inpatient (IN) | payer BC, MEDICAID, SELFPAY ==
[2024-07-06] VITALS (76 sets, daily range): BP systolic 102–203; BP diastolic 47–89; PULSE 42–58; RESP 1–38; TEMP 36.6–37.1; O2SAT 91–100; BMI 24.3; BMI 20.7
--- NOTE | 2024-07-06 11:07 | XR_ITS ---
WS: [id number] Portable AP upright chest, 07/06/2024 Clinical Data: dyspnea/cough Comparison: Portable chest, 05/05/2024 Findings: No nodules or masses are seen. There is a small left pleural effusion. The heart is slight ly enlarged. The pulmonary vascularity is not increased. No pneumonia or pneumothorax is seen. There is a posterior lateral left seventh rib fracture. There is a large hiatal hernia behind the heart. Th ere are monitor leads on the chest wall. XR/XR chest 1V portable [id number] Impression: 1. Cardiomegaly with small left effusion. 2. Large hiatal hernia. 3. Moderately displaced posterior lateral left seventh rib fracture.
--- NOTE | 2024-07-06 11:09 | ED_ITS ---
HPI - Syncope 2 General: Chief Complaint: Syncope Stated Complaint: Syncope Time Seen by Provider: 07/06/24 11:02 History of Present Illness: 58-year-old male presents emergency room with recurrent falls. He fell earlier this week and was seen 2 days ago he had 2 rib fractures large facial hematoma he fell again today shortly after he got up from using the restroom he denies any chest pain. Patient has a nonischemic cardiomyopathy had an angiogram earlier this month there was no coronary artery occlusions. His troponin was markedly elevated 2 days ago but trended down. He states that this has been occurring ever since they increased his metoprolol. He had no episodes of chest pain today. Associated symptoms: Deny abdominal pain, chest pain or fever(s) Related Data Home Medications Medication Instructions Recorded Confirmed multivitamin with minerals 1 tab PO DAILY 05/05/24 07/06/24 Previous Rx's Medication Instructions Recorded ciprofloxacin HCl 500 mg tablet 500 mg PO BID #6 tabs 05/15/24 levothyroxine 50 mcg tablet 50 mcg PO QAM #30 tabs 05/15/24 aspirin 81 mg tablet,delayed 81 mg PO DAILY #30 tabs 05/28/24 release atorvastatin 40 mg tablet 40 mg PO BEDTIME #90 tabs 05/28/24 dapagliflozin propanediol 10 mg 10 mg PO DAILY #90 tabs 05/28/24 tablet (Farxiga) furosemide 40 mg tablet 40 mg PO BID@08,16 #60 tabs 05/28/24 losartan 50 mg tablet 50 mg PO DAILY #30 tabs 06/15/24 Diabetic Shoes #1 ea 06/28/24 Allergies Allergy/AdvReac Type Severity Reaction Status Date / Time bee venom protein (honey bee) Allergy ALGY-Swell Verified 06/28/24 13:00 Lip/Tongue/Throat Review of Systems 2 Const: Denies: fever(s) or chills Card: Reports: dyspnea on exertion; Denies: chest pain or orthopnea Resp: Denies: dyspnea GI: Denies: abdominal pain : Denies: dysuria, urinary frequency or urinary urgency Musc: Denies: neck pain or back pain Skin/Breast: Denies: rash PFSH ED 2 PFSH: Medical History Fracture, ribs Syncope due to orthostatic hypotension Diabetes mellitus LVEF <40% Kidney disease CHF (congestive heart failure) Proteinuria Hypertension Social History Smoking and tobacco/nicotine status: never used tobacco/nicotine Physical Exam 2 Const: GENERAL APPEARANCE: cooperative ORIENTATION/CONSCIOUSNESS: Yes awake, Yes oriented to person, Yes oriented to place and Yes oriented to time HENMT: COMMON NORMALS: normocephalic, atraumatic and hearing grossly normal bilaterally HEAD & SCALP: normocephalic and atraumatic Resp: COMMON NORMALS: normal respiratory effort, No retractions, No use of accessory muscles and clear to auscultation bilaterally AUSCULTATION: clear to auscultation bilaterally Cardio: COMMON NORMALS: regular rhythm and No murmurs present (Cardio) R ATE: bradycardic RHYTHM: regular rhythm GI: COMMON NORMALS: Soft to palpation and No hepatosplenomegaly present A USCULTATION: Yes normoactive bowel sounds PALPATION: Yes Soft to palpation, No Tenderness to palpation present (GI), No Guarding due to palpation present (GI) and Yes No hepatosplenomegaly present Extremity: COMMON NORMALS: normal to inspection, capillary refill normal, no clubbing, cyanosis or edema, no calf tenderness and no pedal edema Neuro: SENSORIUM/ORIENTATION: Yes oriented to person, Yes oriented to place and Yes oriented to time Skin: COMMON NORMALS: no rashes or lesions noted GENERAL SKIN EXAM: no rashes or lesions noted Course 2 Vital Signs: Vital signs: Vital Signs Temperature 98.5 F 07/06/24 11:03 Pulse Rate 42 L 07/06/24 15:07 Respiratory Rate 13 07/06/24 13:45 Blood Pressure 149/74 07/06/24 15:07 Pulse Oximetry 96 07/06/24 14:00 Oxygen Delivery Me thod Room Air 07/06/24 11:03 MDM - Syncope Medical Decision Making Patient remains orthostatic. He also has a worsening renal function with mild acute kidney injury on chronic injury. He is also very bradycardic his troponins are elevated but he did have his angiogram recently showed no occlusions suspect this is from his CHF and cardiomyopathy. Discussed with hospitalist will admit hold metoprolol Medical Records I reviewed the patient's medical records. Lab Data 07/06/24 11:29 07/06/24 11:29 Radiology Impressions Chest X-Ray 07/06/24 11:07 Impression: 1. Cardiomegaly with small left effusion. 2. Large hiatal hernia. 3. Moderately displaced posterior lateral left seventh rib fracture. Head CT 07/06/24 12:06 IMPRESSION: No CT evidence of acute intracranial hemorrhage, mass or acute infarction. No acute skull fracture. Persistent soft tissue hematoma in the right forehead with decreased thickness since 07/04/2024. Cervical Spine CT 07/06/24 12:07 IMPRESSION: No acute fracture. Face CT 07/06/24 12:07 IMPRESSION: No acute fracture. Soft tissue hematoma in the right forehead. Laboratory Results WBC 7.64 10^3/uL (3.29-11.43) 07/06/24 11:29 RBC 3.45 10^6/uL (3.85-5.65) L 07/06/24 11:29 Hgb 10.30 g/dL (11.27-16.99) L 07/06/24 11:29 Hct 32.0 % (37-53) L 07/06/24 11:29 MCV 92.8 fl (82-101) 07/06/24 11:29 MCH 29.9 pg (27-33) 07/06/24 11:29 MCHC 32.2 g/dL (30-55) 07/06/24 11:29 RDW 13.7 % (12.1-15.1) 07/06/24 11:29 Plt Count 219 10^3/cmm (157-399) 07/06/24 11:29 MPV 11.5 fL (7.4-10.4) H 07/06/24 11:29 Neut % (Auto) 73.1 % 07/06/24 11:29 Lymph % (Auto) 13.6 % 07/06/24 11:29 [place] % (Auto) 11.4 % 07/06/24 11:29 Eos % (Auto) 0.9 % 07/06/24 11:29 Baso % (Auto) 0.7 % 07/06/24 11:29 Neut # (Auto) 5.59 10^3/uL (1.8-7.7) 07/06/24 11:29 Lymph # (Auto) 1.0 10^3/uL (0.8-4.8) 07/06/24 11:29 [place] # (Auto) 0.9 10^3/uL (0.2-0.9) 07/06/24 11:29 Eos # (Auto) 0.1 10^3/uL (0.0-0.8) 07/06/24 11:29 Baso # (Auto) 0.1 10^3/uL (0.0-0.1) 07/06/24 11:29 Nucleated RBC % (auto) 0 % 07/06/24 11:29 Nucleated RBCs # 0.0 /100WBC 07/06/24 11:29 Sodium 136 mmol/L (136-145) 07/06/24 11:29 Potassium 3.7 mmol/L (3.5-5.1) 07/06/24 11:29 Chloride 95 mmol/L (98-107) L 07/06/24 11:29 Carbon Dioxide 25 mmol/L (22-29) 07/06/24 11:29 Anion Gap 19.7 (5-19) H 07/06/24 11:29 BUN 57 mg/dL (8-23) H 07/06/24 11:29 Creatinine 2.6 mg/dL (0.7-1.2) H 07/06/24 11:29 GFR Calculation 25.3 mL/min (90-130) L 07/06/24 11:29 Glucose 181 mg/dL (65-115) H 07/06/24 11:29 Calculated Osmolality 302 mOsm/kg (285-295) H 07/06/24 11:29 Calcium 8.8 mg/dL (8.5-10.5) 07/06/24 11:29 Total Bilirubin 0.7 mg/dL (0.15-1.2) 07/06/24 11:29 AST 30 U/L (0-40) 07/06/24 11:29 ALT 52 U/L (0-41) H 07/06/24 11:29 Alkaline Phosphatase 82 U/L (40-130) 07/06/24 11:29 Troponin T Baseline 162 ng/L (0-15) H* 07/06/24 11:29 Troponin T 120 Minute 145.3 ng/L (0-15) H 07/06/24 13:29 Delta Troponin T -16.7 ABS# (0-10) L 07/06/24 13:29 Total Protein 6.0 g/dL (6.6-8.7) L 07/06/24 11:29 Albumin 3.3 g/dL (3.5-5.2) L 07/06/24 11:29 Globulin 2.7 g/dL (1.3-4.6) 07/06/24 11:29 Urine Color Yellow (Yellow) 07/06/24 14:23 Urine Appearance Clear (CLEAR) 07/06/24 14:23 Urine pH 5.0 (5-7) 07/06/24 14:23 Ur Specific [place] 1.018 (1.005-1.030) 07/06/24 14:23 Urine Protein 3+ (Negative) A 07/06/24 14:23 Urine Glucose (UA) 2+ (Normal) H 07/06/24 14:23 Urine Ketones Negative (Negative) 07/06/24 14:23 Urine Blood Negative (Negative) 07/06/24 14:23 Urine Nitrate Negative (Negative) 07/06/24 14:23 Urine Bilirubin Negative (Negative) 07/06/24 14:23 Urine Urobilinogen 0.2 mg/dL (Negative) 07/06/24 14:23 Ur Leukocyte Esterase Negative (Negative) 07/06/24 14:23 Amorphous Sediment Not Reportable 07/06/24 14:23 Discharge Plan Discharge Condition: Stable Prescriptions: No Action atorvastatin 40 mg tablet 40 mg PO BEDTIME Qty: 90 0RF furosemide 40 mg tablet 40 mg PO BID@08,16 Qty: 60 0RF dapagliflozin propanediol [Farxiga] 10 mg tablet 10 mg PO DAILY Qty: 90 0RF aspirin 81 mg tablet,delayed release (DR/EC) 81 mg PO DAILY Qty: 30 0RF (DME) Diabetic Shoes See Rx Instructions .Route .MEDSUPPLY Qty: 1 0RF Rx Instructions: As directed by Home multivitamin with minerals Tablet 1 tab PO DAILY levothyroxine 50 mcg Tablet 50 mcg PO QAM Qty: 30 0RF ciprofloxacin HCl 500 mg tablet 500 mg PO BID Qty: 6 0RF losartan 50 mg tablet 50 mg PO DAILY Qty: 30 0RF Referrals: Nicole Gross FNP [Primary Care Provider] - TEMP,ED [Family Provider] - Coding Level of Care Code ED Hearing Impaired Teacher for [employer] Em
--- NOTE | 2024-07-06 11:11 | ECG_ITS ---
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 Measurements Intervals [place] Rate: 49 P: -74 [place]: 204 QRS: -53 QRSD: 146 T: 103 QT: 467 QTc: 423 Interpretive Statements SINUS BRADYCARDIA LEFT AXIS DEVIATION [QRS AXIS < -30] LEFT BUNDLE BRANCH BLOCK [120+ ms QRS DURATION, 80+ ms Q/S IN V1/V2, 85+ ms R IN I/aVL/V5/V6] Compared to ECG 07/04/2024 20:11:44 Left bundle-branch block now present Intraventricular conduction delay no longer present Myocardial infarct finding no longer present Electronically Signed On 07-06-2024 17:48:16 PUBLIC HEALTH TECHNOLOGIST by Lynda Conte M.D. [email or web address]
[2024-07-06 11:37] LABS: Basophils # 0.1 10^3/uL (0.0-0.1); Basophils % 0.7 %; Eosinophils # 0.1 10^3/uL (0.0-0.8); Eosinophils % 0.9 %; Lymphocytes % 13.6 %; Mean Corpuscular HGB Conc 32.2 g/dL (30-55); Mean Corpuscular Hemoglobin 29.9 pg (27-33); Mean Corpuscular Volume 92.8 fl (82-101); Mean Platelet Volume 11.5 fL (7.4-10.4); Monocytes # 0.9 10^3/uL (0.2-0.9); Monocytes % 11.4 %; Neutrophils # 5.59 10^3/uL (1.8-7.7); Neutrophils % 73.1 %; Nucleated Red Blood Cells % 0 %; Platelet Count 219 10^3/cmm (157-399); Red Blood Count 3.45 10^6/uL (3.85-5.65); Red Cell Distribution Width 13.7 % (12.1-15.1); White Blood Count 7.64 10^3/uL (3.29-11.43)
[2024-07-06 12:00] LABS: Alanine Aminotransferase 52 U/L (0-41); Albumin Level 3.3 g/dL (3.5-5.2); Alkaline Phosphatase 82 U/L (40-130); Aspartate Amino Transferase 30 U/L (0-40); Blood Urea Nitrogen 57 mg/dL (8-23); Calcium 8.8 mg/dL (8.5-10.5); Carbon Dioxide 25 mmol/L (22-29); Chloride 95 mmol/L (98-107); Creatinine Clr Calc Pharmacy 32.7991; Globulin 2.7 g/dL (1.3-4.6); Glomerular Filtration Rate 25.3 mL/min (90-130); Glucose 181 mg/dL (65-115); Osmolality Calculated 302 mOsm/kg (285-295); Sodium 136 mmol/L (136-145); Total Bilirubin 0.7 mg/dL (0.15-1.2)
[2024-07-06 12:01] LABS: Troponin(5th) Baseline 162 ng/L (0-15)
--- NOTE | 2024-07-06 12:06 | CTR_ITS ---
PROCEDURE INFORMATION: Exam: CT Head Without Contrast Exam date and time: 07/06/2024 12:22 PM Age: 58 years old Clinical indication: Injury or trauma; Blunt trauma (contusions or hematomas); Injury details: Multiple falls since Friday. PT fell today hitting face on ground. PT has hematoma, bruising and abrasions to frontal forehead TECHNIQUE: Imaging protocol: Computed tomography of the head without contrast. Radiation optimization: All CT scans at this facility use at least one of these dose optimization techniques: automated exposure control; mA and/or kV adjustment per patient size (includes targeted exams where dose is matched to clinical indication); or iterative reconstruction. COMPARISON: CT head wo con* [id number] 07/04/2024 6:27 PM RADIATION DOSE METRICS: Total DLP (mGy-cm): 2932 FINDINGS: Brain: No acute intracranial hemorrhage. No edema. No mass effect. There are stable ill-defined hypodense areas in the bilateral periventricular white matter suggestive of chronic small vessel ischemic changes. Cerebral ventricles: No ventriculomegaly. Paranasal sinuses: Stable minimal mucosal thickening in the ethmoid sinuses with no air-fluid levels. Mastoid air cells: No mastoid effusion. Bones: Unremarkable. No acute fracture. Soft tissues: Persistent right forehead hematoma with maximal thickness decreased from 12 mm [address]/CT head wo con* [id number] IMPRESSION: No CT evidence of acute intracranial hemorrhage, mass or acute infarction. No acute skull fracture. Persistent soft tissue hematoma in the right forehead with decreased thickness since 07/04/2024.
--- NOTE | 2024-07-06 12:07 | CTR_ITS ---
PROCEDURE INFORMATION: Exam: CT Maxillofacial Without Contrast Exam date and time: 07/06/2024 12:22 PM Age: 58 years old Clinical indication: Injury or trauma; Blunt trauma (contusions or hematomas); Injury details: Multiple falls since Friday. PT fell today hitting face on ground. PT has hematoma, bruising and abrasions to frontal forehead TECHNIQUE: Imaging protocol: Computed tomography of the face without contrast. Radiation optimization: All CT scans at this facility use at least one of these dose optimization techniques: automated exposure control; mA and/or kV adjustment per patient size (includes targeted exams where dose is matched to clinical indication); or iterative reconstruction. COMPARISON: No relevant exams for comparison RADIATION DOSE METRICS: Total DLP (mGy-cm): 2932 FINDINGS: Paranasal sinuses: Minimal mucosal thickening in the maxillary and ethmoid sinuses with no air-fluid levels. Orbital cavities: Orbits are normal. Globes are unremarkable. Bones: No acute fracture. No dislocation of the temporomandibular joints. 1.4 x 0.8 cm periapical lucency in the left 2nd mandibular molar tooth suggestive of chronic granuloma. 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 Soft tissues: Small soft tissue thickening in the right forehead with maximal thickness of 7 mm suggestive of hematoma. CT/CT facial bones wo con* [id number] IMPRESSION: No acute fracture. Soft tissue hematoma in the right forehead.
--- NOTE | 2024-07-06 12:07 | CTR_ITS ---
PROCEDURE INFORMATION: Exam: CT Cervical Spine Without Contrast Exam date and time: 07/06/2024 12:22 PM Age: 58 years old Clinical indication: Injury or trauma; Blunt trauma; Injury details: Multiple falls since Friday. PT fell today hitting face on ground. PT has hematoma, bruising and abrasions to frontal forehead TECHNIQUE: Imaging protocol: Computed tomography of the cervical spine without contrast. Radiation optimization: All CT scans at this facility use at least one of these dose optimization techniques: automated exposure control; mA and/or kV adjustment per patient size (includes targeted exams where dose is matched to clinical indication); or iterative reconstruction. COMPARISON: No relevant prior studies available. RADIATION DOSE METRICS: Total DLP (mGy-cm): 2932 FINDINGS: Bones: No acute fracture. Normal alignment. Marginal disc osteophyte complexes are causing mild spinal stenosis at C3-C4, C4-C5 and C5-C6 levels. There are degenerative changes in uncovertebral and facet joints contributing to foraminal stenosis (moderate right at C3-C4, moderate bilateral at C4-C5, mild bilateral at C5-C6 level). Lungs: Lung apices are normal. Soft tissues: Unremarkable. CT/CT cervical spin wo con* [id number] IMPRESSION: No acute fracture.
[2024-07-06 12:10] LABS: Anion Gap 19.7 (5-19); Potassium 3.7 mmol/L (3.5-5.1)
--- NOTE | 2024-07-06 12:40 | ECG_ITS ---
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 Measurements Intervals [place] Rate: 49 P: 43 [place]: 209 QRS: -55 QRSD: 145 T: 105 QT: 464 QTc: 423 Interpretive Statements SINUS BRADYCARDIA WITH OCCASIONAL VENTRICULAR PREMATURE COMPLEXES LEFT AXIS DEVIATION [QRS AXIS < -30] LEFT BUNDLE BRANCH BLOCK [120+ ms QRS DURATION, 80+ ms Q/S IN V1/V2, 85+ ms R IN I/aVL/V5/V6] Compared to ECG 07/06/2024 11:11:59 Ventricular premature complex(es) now present Electronically Signed On 07-06-2024 17:58:18 TRUCKING CONTRACTOR by Lynda Conte M.D. [email or web address]
[2024-07-06 14:00] LABS: Troponin 5 2HR 145.3 ng/L (0-15); Troponin 5 2HR Delta -16.7 ABS# (0-10)
[2024-07-06 14:54] LABS: Bilirubin Urine Negative (Negative); Blood Urine Negative (Negative); Glucose Urine UA 2+ (Normal); Ketones Urine Negative (Negative); Leukocyte Esterase Urine Negative (Negative); Nitrate Urine Negative (Negative); Protein Urine 3+ (Negative); Specific Gravity, Urine 1.018 (1.005-1.030); Urine Appearance Clear (CLEAR); Urine Color Yellow (Yellow); Urobilinogen Urine 0.2 mg/dL (Negative)
[2024-07-06 14:59] LABS: Add Urine Microscopic? YES; Bacteria Urine None Seen /hpf; Hyaline Casts Urine 29.78 /lpf; RBC Urine 0-2 /hpf (0-2); Squamous Epithelial Cell Urine 0-5 /hpf (0-5); WBC Urine 0-5 /hpf (0-5)
[2024-07-06 15:31] LABS: UA Slide Review UA Slide Review Perf
[2024-07-06 15:33] LABS: Add Urine Culture? No; Amorphous Sediment Urine 1+ /hpf
[2024-07-06] MEDS: HYDROcodone-acetaminophen 5-325 mg Tablet 1 TAB PO (15:51)
--- NOTE | 2024-07-06 17:21 | ECG_ITS ---
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 Measurements Intervals [place] Rate: 46 P: 30 [place]: 202 QRS: -37 QRSD: 150 T: 116 QT: 477 QTc: 420 Interpretive Statements SINUS BRADYCARDIA LEFT AXIS DEVIATION [QRS AXIS < -30] LEFT BUNDLE BRANCH BLOCK [120+ ms QRS DURATION, 80+ ms Q/S IN V1/V2, 85+ ms R IN I/aVL/V5/V6] Compared to ECG 07/06/2024 12:40:27 Ventricular premature complex(es) no longer present Electronically Signed On 07-06-2024 17:59:36 E LEARNING DEVELOPER by Lynda Conte M.D. [id number]
[2024-07-06 17:26] LABS: Magnesium 2.3 mg/dL (1.7-2.3); Thyroid Stimulating Hormone 4.19 uIU/mL (0.27-4.20)
--- NOTE | 2024-07-06 17:26 | P.HP_ITS ---
Providers/Chief Complaint 2 Admitting Physician: Tin Tinoco Primary Care Provider: Nicole Gross APN Chief Complaint: Syncope History of Present Illness Pleasant 58-year-old gentleman with history of nonischemic cardiomyopathy, status post coronary angiography on 06/15 with moderate CAD, with history of orthostatic hypotension, with syncopal episode on 07/04 with COLLEEN, with left seventh lateral rib fractures, with positive orthostatics at that time, was referred for follow-up with primary provider for reassessment. Returns to the hospital after additional syncopal episode with fall and injury to his head, with forehead hematoma, facial bruising. In ER he is again found to be orthostatic, blood pressure 149/74 laying, 102/51 standing, with bradycardia in the 40s. Facial CT without acute fracture, soft tissue hematoma in the right forehead. Cervical spine CT nonacute. Head CT without acute intracranial hemorrhage mass or infarction. No acute skull fracture. Persistent soft tissue Shalom on the right forehead with decreased thickness since 07/04. Chest x-ray with cardiomegaly with small left effusion. Large hiatal hernia. Moderately displaced posterior left lateral seventh rib fracture. He losartan for blood pressure control. ER physician initially mistakenly considering metoprolol as a culprit. However, on further discussion he denies taking any beta-blockers. His medication list that he has with him did not have any beta-blockade or calcium channel blocking agents. He otherwise denies any new acute issues. He does have hypothyroidism. Review of Systems 2 Const: Denies: fever(s), chills, body aches or malaise ENMT: Denies: throat pain Card: Reports: syncope; Denies: chest pain, edema or dyspnea on exertion Resp: Reports: pain on inspiration; Denies: dyspnea, productive cough, change in phlegm color or hemoptysis GI: Denies: abdominal pain, nausea, vomiting, diarrhea, constipation, hematochezia or melena : Denies: flank pain, difficulty urinating, urinary frequency or hematuria Skin/Breast: Denies: rash Neuro: Denies: confusion Medications/Allergies Home Medications Medication Instructions Recorded Confirmed Last Taken Type multivitamin with minerals 1 tab PO DAILY 05/05/24 07/06/24 07/04/24 History ciprofloxacin HCl 500 mg tablet 500 mg PO BID #6 tabs 05/15/24 07/06/24 07/04/24 Rx levothyroxine 50 mcg tablet 50 mcg PO QAM #30 tabs 05/15/24 07/06/24 07/04/24 Rx aspirin 81 mg tablet,delayed 81 mg PO DAILY #30 tabs 05/28/24 07/06/24 07/04/24 Rx release atorvastatin 40 mg tablet 40 mg PO BEDTIME #90 tabs 05/28/24 07/06/24 07/04/24 Rx dapagliflozin propanediol 10 mg 10 mg PO DAILY #90 tabs 05/28/24 07/06/24 07/04/24 Rx tablet (Farxiga) furosemide 40 mg tablet 40 mg PO BID@08,16 #60 tabs 05/28/24 07/06/24 07/04/24 Rx losartan 50 mg tablet 50 mg PO DAILY #30 tabs 06/15/24 07/06/24 07/04/24 Rx Diabetic Shoes #1 ea 06/28/24 07/06/24 Unknown Rx Allergies Allergy/AdvReac Type Severity Reaction Status Date / Time bee venom protein (honey bee) Allergy ALGY-Swell Verified 06/28/24 13:00 Lip/Tongue/Throat PFSH Acute 2 PFSH: Medical History Fracture, ribs Syncope due to orthostatic hypotension Diabetes mellitus LVEF <40% Kidney disease CHF (congestive heart failure) Proteinuria Hypertension Social History Smoking and tobacco/nicotine status: never used tobacco/nicotine Vitals/I&O/Wt Last Vital Signs Temp 98.5 F 07/06/24 11:03 Pulse 49 L 07/06/24 16:15 Resp 24 H 07/06/24 15:45 BP 203/88 07/06/24 16:49 Pulse Ox 98 07/06/24 16:15 O2 Del Method Room Air 07/06/24 16:55 07/06/24 07/06/24 07/06/24 06:59 14:59 22:59 Output Total 300 / 300 Balance -300 / -300 Weight last 48 hrs Weight 67.5 kg Weight 78.925 kg Physical Exam 2 Const: COMMON NORMALS: patient oriented x3 and alert GENERAL APPEARANCE: c ooperative ORIENTATION/CONSCIOUSNESS: Yes awake HENMT: COMMON NORMALS: oropharynx normal OTHER: Right lower forehead hematoma. Facial bruising over the glabella, bridge of the nose, as well as down around lower orbits. Neck/C-Spine: COMMON NORMALS: no JVD Resp: COMMON NORMALS: normal respiratory effort and clear to auscultation bilaterally AUSCULTATION: clear to auscultation bilaterally Cardio: COMMON NORMALS: no JVD, regular rhythm, S1 normal heart sound present, S2 normal heart sound present and No murmurs present (Cardio) RHYTHM: regular rhythm HEART SOUNDS: S1 normal heart sound present and S2 normal heart sound present GI: COMMON NORMALS: Normal to inspection, nondistended, normoactive bowel sounds present, Soft to palpation and non-tender PALPATION: Yes Soft to palpation Extremity: COMMON NORMALS: no joint enlargement and no pedal edema Neuro: COMMON NORMALS: patient oriented x3 and moves all extremities S ENSORIUM/ORIENTATION: Yes alert Skin: COMMON NORMALS: no rashes or lesions noted GENERAL SKIN EXAM: no rashes or lesions noted Data 07/06/24 11:29 07/06/24 11:29 A&P Assessment and plan (1) Syncope and collapse: Recurrent syncope with collapse, with left seventh rib fracture last time, with forehead hematoma, with recurrent syncope, forehead and facial bruising. Severe orthostatic hypotension. Additionally is noted bradycardic. Does not appear to around 5 heart rate with standing. Blood pressure with decrease of over 90 mmHg from laying to standing. Reviewed vitals, CBC, CMP, troponin, requested magnesium, TSH, reviewed UA, EKG, face and cervical spine CT, head CT, chest x-ray. Reviewed ER provider note, discussed with ER provider. Discussed with power lineworker. With underlying nonischemic cardiopathy with recent coronary angiogram with moderate coronary disease without significant blockages. A number of risk factors for syncope including cardiomyopathy, orthostatic hypotension, bradycardia. He is on Lasix at home, dapagliflozin, additionally losartan dose has been increased recently. All may contribute to orthostasis and/or syncope. Additionally with noted COLLEEN on CKD, creatinine up to 2.6, BUN up to 57. Bicarb 25. Discussed with him and cardiology consideration of bradycardia contribution. Does appear to have sinus beats with some junctional beats. At current time consideration of severe to stasis as primary theology with bradycardia possibly secondary. Hold off Lasix. Will give a dose of albumin. Hold off losartan, dapagliflozin. Will reassess TTE. Monitor on telemetry. In case of significant pauses. He knows that we may not have ability to place a pacemaker here in case 1 was needed, but temporary pacemaker can be placed should it become necessary. At current time discussed with him maintaining bedrest. Will reassess volume status, renal function. Not a candidate for midodrine due to bradycardia. (2) Orthostatic hypotension: Hold Lasix, dapagliflozin, losartan. 25 g of 25% albumin infusion. Monitor for risk of CHF, pulmonary edema, fluid overload. Discussed with him orthostatic precautions. (3) Bradycardia: Check magnesium, TSH. Not on beta-femi or calcium channel femi. Complete troponin EKG series. Reassess CT with history of nonischemic cardiomyopathy. He is hypertensive. (4) COLLEEN (acute kidney injury): Creatinine of 2.6, BUN 57. Hold diuretic. Cautious volume challenge with albumin. Hold losartan. Reassess kidney function. Plan Left seventh rib fracture. Tylenol as needed. Supportive care. Incentive spirometer. Attestations 2 Medical Necessity Statement*: Place in observation for additional assessment and management of recurrent syncopal event, severe orthostasis, bradycardia, COLLEEN and gentleman with underlying diabetes. and High MDM includes amount and/or complexity of data reviewed/ordered [ previous or external records, resulted lab(s)/test(s), ordered lab(s)/test(s) and other healthcare professional discussion] and described risk of complication, morbidity or mortality of management as documented Diagnoses Syncope and collapse R55 Orthostatic hypotension I95.1 Bradycardia R00.1 COLLEEN (acute kidney injury) N17.9
[2024-07-06] MEDS: albumin 25 G/100 ML BAG 60 G IV (17:36)
[2024-07-06 18:01] LABS: Glucose Point of Care 200 mg/dL (70-110)
--- NOTE | 2024-07-06 18:02 | USCV_ITS ---
Hector Whitaker Age: 58 Gender: M : 1965 Exam Date: 07/06/2024 18:49 Ordering Phys: Tin Tinoco MD Technologist: BRET [place]am [place] [facility] [place]: recurrent syncope, orthostasis, reassess ventricular functionn, hx CAD BP: 107 / 65 HR: 45 Rhythm: Sinus bradycardia Technical Quality: Adequate MEASUREMENTS (Male / Female) Normal Values 2D ECHO LV Diastolic Diameter PLAX 5.3 cm 4.2 - 5.9 / 3.9 - 5.3 cm IVS Diastolic Thickness 1.6 cm 0.6 - 1.0 / 0.6 - 0.9 cm IVS Systolic Thickness 1.6 cm LVPW Diastolic Thickness 1.7 cm 0.6 - 1.0 / 0.6 - 0.9 cm LVPW Systolic Thickness 2.0 cm LVOT Diameter 2.1 cm LV Ejection Fraction 2D Teich 38.4 % LV Ejection Fraction MOD 4C 61.6 % LV Ejection Fraction MOD 2C 48.9 % LV Ejection Fraction 2C AL 49.8 % LA Diameter 3.6 cm LA Sys Volume AL 127.5 cm cubed LA Sys Volume Index AL 69.8 cm cubed/m squared Aorta at Sinotubular Diameter 3.1 cm IVC Diameter 2.3 cm M-MODE LA Ao Ratio MM 1.3 AV Cusp Separation MM 2.4 cm DOPPLER AV Peak Velocity 197.0 cm/s LVOT Peak Velocity 94.0 cm/s AV Area Cont Eq vti 1.8 cm squared AV Area Cont Eq pk 1.7 cm squared MV Peak Velocity 101.0 cm/s MV Area PHT 3.2 cm squared Mitral E to A Ratio 0.7 TR Peak Velocity 233.0 cm/s TR Peak Gradient 21.7 mmHg TV Peak E Velocity 26.0 cm/s PV Peak Velocity 95.0 cm/s FINDINGS Left Ventricle Left ventricle is normal in size. LV systolic function is moderately reduced with EF of 35-40%. Moderate global hypokinesis. Moderate LVH. Grade 1 disatolic dysfunction. Right Ventricle Normal in size and function Right Atrium Normal in size Left Atrium Dilated Mitral Valve Structurally normal mitral valve. Mild mitral regurgitation Aortic Valve Structurally normal aortic valve. No significant stenosis or regurgitation. Tricuspid Valve Insufficient TR jet to evaluate RVSP. Pulmonic Valve Not well visualized Pericardium Small sized pericardial effusion Aorta Normal in size IVC Dilated CONCLUSIONS LV systolic function is moderately reduced with EF of 35-40%. Moderate LVH Grade 1 diastolic dysfunction Left atrial dilation Mild mitral regurgitation Small sized pericardial effusion IVC is dilated. Compared to prior echocardiogram from 04/2024, no significant changes are seen Yossi Fried MD (Electronically Signed) Final Date: 07 July 2024 12:59 S
[2024-07-06] MEDS: insulin lispro 100 unit/1 mL SUBCUT ×2 (18:25→20:58)
[2024-07-06 18:43] LABS: Troponin 5 6HR Delta -30.2 ng/L (0-12)
[2024-07-06 18:45] LABS: Troponin 5 6HR 131.8 ng/L (0-15)
[2024-07-06 19:44] LABS: Glucose Point of Care 223 mg/dL (70-110)
[2024-07-06] MEDS: acetaminophen 325 mg Tablet 650 MG PO (23:14)
[2024-07-07] VITALS (8 sets, daily range): BP systolic 131–173; BP diastolic 63–81; PULSE 40–60; RESP 12–20; TEMP 36.5–36.7; O2SAT 96–99
[2024-07-07 03:23] LABS: Basophils # 0.1 10^3/uL (0.0-0.1); Eosinophils # 0.4 10^3/uL (0.0-0.8); Eosinophils % 5.2 %; Hematocrit 27.9 % (37-53); Lymphocytes # 1.4 10^3/uL (0.8-4.8); Lymphocytes % 21.2 %; Mean Corpuscular Hemoglobin 30.3 pg (27-33); Mean Corpuscular Volume 91.8 fl (82-101); Mean Platelet Volume 11.8 fL (7.4-10.4); Monocytes % 15.2 %; Neutrophils # 3.87 10^3/uL (1.8-7.7); Neutrophils % 57.3 %; Nucleated Red Blood Cells % 0 %; Platelet Count 202 10^3/cmm (157-399); Red Blood Count 3.04 10^6/uL (3.85-5.65); Red Cell Distribution Width 13.6 % (12.1-15.1); White Blood Count 6.76 10^3/uL (3.29-11.43)
[2024-07-07 03:41] LABS: Alanine Aminotransferase 38 U/L (0-41); Alkaline Phosphatase 72 U/L (40-130); Aspartate Amino Transferase 20 U/L (0-40); Blood Urea Nitrogen 66 mg/dL (8-23); Calcium 8.7 mg/dL (8.5-10.5); Carbon Dioxide 27 mmol/L (22-29); Chloride 95 mmol/L (98-107); Creatinine Clr Calc Pharmacy 33.4167; Glomerular Filtration Rate 27.8 mL/min (90-130); Glucose 111 mg/dL (65-115); Osmolality Calculated 300 mOsm/kg (285-295); Sodium 135 mmol/L (136-145); Total Bilirubin 0.4 mg/dL (0.15-1.2)
[2024-07-07 05:51] LABS: Glucose Point of Care 120 mg/dL (70-110)
[2024-07-07] MEDS: levothyroxine 50 mcg Tablet PO (06:33)
[2024-07-07] MEDS: HYDROcodone-acetaminophen 5-325 mg Tablet 1 TAB PO (06:50)
[2024-07-07] MEDS: aspirin 81 mg EC Tablet PO (08:27)
--- NOTE | 2024-07-07 08:39 | PC.CHAP ---
Pastoral Care Encounter/Spiritual Assessment Type of Contact [] Declined care center manager visit [] Patient/Family/Request visit [] Outpatient visit [] Follow-up visit [] Physician referral [] Code/Alert [x] Routine visit [] Staff referral [] Actively dying [] Patient sleeping [] Family support [] [] Out of room [] Palliative care [] [] Receiving care in room [] Pre-surgical visit [] Trauma [] Long length of stay [] ICU visit [] Other: Relational/Emotional Strength [x] Patient feels connected with others/family/visitors/staff [] Distress [] Loneliness/isolation [] Abandonment Spirituality of Patient [x] Person of Shyanne [] Attends Alevism of their Shyanne [x] Believes in Prayer [] Reads Bible or Mandaen materials [] There are Spiritual issues to be addressed Door To Door Selling Agent Interventions [x] Prayer [x] Active listening [] Non-anxious presence [x] Spiritual/emotional support [] Crisis/trauma care [] Spiritual counseling [] Bereavement support [] Provided bereavement packet [] Provided Bible/devotional materials [] Provided toy/stuffed animal, coloring book to patient or family member [] Provided Communion [] Anointing/[place] [] Salvation [x] Completed spiritual assessment [] Other: Impact on Illness or Injury [] Angry [] Fearful [] Anxious [] Often cries [] Exhaustion [] Unable to work [] Unable to attend restoration [] Unable to walk/stand [] Unable to read [] Unable to drive [] Unable to eat/drink [] Unable to sleep [] Unable to be with family [] Patient intubated [] Other: Summary Time spent with patient 5 min
[2024-07-07 11:47] LABS: Glucose Point of Care 188 mg/dL (70-110)
[2024-07-07] MEDS: insulin lispro 100 unit/1 mL SUBCUT ×2 (12:07→21:35)
[2024-07-07 15:58] LABS: Glucose Point of Care 182 mg/dL (70-110)
[2024-07-07 20:10] LABS: Glucose Point of Care 199 mg/dL (70-110)
--- NOTE | 2024-07-07 20:16 | PM.PN ---
Subjective Subjective: Found retaining urine overnight. This morning overall is feeling slightly better was getting slightly dizzy but different type of dizziness with room spinning around him while sitting up in bed. Blood pressure checked, not hypotensive at that time. Vitals/I&O/Wt Last Vital Signs Temp 97.9 F 07/07/24 19:06 Pulse 48 L 07/07/24 19:06 Resp 18 07/07/24 19:06 BP 160/81 07/07/24 19:06 Pulse Ox 99 07/07/24 19:06 O2 Del Method Room Air 07/07/24 19:06 07/07/24 07/07/24 07/07/24 06:59 14:59 22:59 Intake Total 260 / 480 720 / 720 Output Total 1100 / 1100 1500 / 2600 Balance 260 / 180 -380 / -380 -1500 / -1880 Weight last 48 hrs Weight 77.5 kg Weight 67.5 kg Weight 78.925 kg Physical Exam Const: COMMON NORMALS: patient oriented x3 and alert GENERAL APPEARANCE: cooperative ORIENTATION/CONSCIOUSNESS: Yes awake HENMT: COMMON NORMALS: oropharynx normal OTHER: Right lower forehead hematoma. Facial bruising over the glabella, bridge of the nose, as well as down around lower orbits. Neck/C-Spine: COMMON NORMALS: no JVD Resp: COMMON NORMALS: normal respiratory effort and clear to auscultation bilaterally AUSCULTATION: clear to auscultation bilaterally Cardio: COMMON NORMALS: no JVD, regular rhythm, S1 normal heart sound present, S2 normal heart sound present and No murmurs present (Cardio) RHYTHM: regular rhythm HEART SOUNDS: S1 normal heart sound present and S2 normal heart sound present GI: COMMON NORMALS: Normal to inspection, nondistended, normoactive bowel sounds present, Soft to palpation and non-tender PALPATION: Yes Soft to palpation Extremity: COMMON NORMALS: no joint enlargement and no pedal edema Neuro: COMMON NORMALS: patient oriented x3 and moves all extremities SENSORIUM/ORIENTATION: Yes alert Skin: COMMON NORMALS: no rashes or lesions noted GENERAL SKIN EXAM: no rashes or lesions noted Urinary Catheter Management: Cota: Cath Placed During This Visit: yes Reason for Continuing Indwelling Catheter: Other Urinary Catheter Date of Insertion: 07/07/24 Urinary Catheter Time of Insertion: 07:18 Data 07/07/24 02:31 07/07/24 02:31 A&P Assessment and plan (1) Syncope and collapse: Some improvement in orthostatic blood pressures noted on review. Reviewed vitals, still bradycardic. Overall feeling somewhat better. Does appear to have additional component of vertigo, possibly BPPV has occurred during turning his head. Reviewed CBC, CMP. Reviewed echocardiogram Limited views. EF 35-4%, moderate LVH, grade 1 diastolic dysfunction. Left atrial dilation. Mild mitral regurgitation. Small size pericardial effusion. IVC is dilated. Lasix been on hold as has been losartan. Will check orthostatics in the morning. Reviewed TSH, normal. Continue levothyroxine. Recurrent syncope with collapse, with left seventh rib fracture last time, with forehead hematoma, with recurrent syncope, forehead and facial bruising. Severe orthostatic hypotension. Additionally is noted bradycardic. Does not appear to around 5 heart rate with standing. Blood pressure with decrease of over 90 mmHg from laying to standing. Reviewed vitals, CBC, CMP, troponin, requested magnesium, TSH, reviewed UA, EKG, face and cervical spine CT, head CT, chest x-ray. Reviewed ER provider note, discussed with ER provider. Discussed with hot strip mill supervisor. With underlying nonischemic cardiopathy with recent coronary angiogram with moderate coronary disease without significant blockages. A number of risk factors for syncope including cardiomyopathy, orthostatic hypotension, bradycardia. He is on Lasix at home, dapagliflozin, additionally losartan dose has been increased recently. All may contribute to orthostasis and/or syncope. Additionally with noted COLLEEN on CKD, creatinine up to 2.6, BUN up to 57. Bicarb 25. Discussed with him and cardiology consideration of bradycardia contribution. Does appear to have sinus beats with some junctional beats. At current time consideration of severe to stasis as primary theology with bradycardia possibly secondary. Hold off Lasix. Will give a dose of albumin. Hold off losartan, dapagliflozin. Will reassess TTE. Monitor on telemetry. In case of significant pauses. He knows that we may not have ability to place a pacemaker here in case 1 was needed, but temporary pacemaker can be placed should it become necessary. At current time discussed with him maintaining bedrest. Will reassess volume status, renal function. Not a candidate for midodrine due to bradycardia. (2) Orthostatic hypotension: Hold Lasix, dapagliflozin, losartan. 25 g of 25% albumin infusion. Monitor for risk of CHF, pulmonary edema, fluid overload. Discussed with him orthostatic precautions. (3) Bradycardia: Reviewed magnesium, TSH. Continue telemetry monitoring. Not on beta-femi or calcium channel femi. Complete troponin EKG series. Reassess CT with history of nonischemic cardiomyopathy. He is hypertensive. (4) COLLEEN (acute kidney injury): Mild improvement reviewed BUN, creatinine, Biopar,, potassium. Creatinine down to 2.4. Will give additional dose of albumin monitor for risk of fluid overload Hold diuretic. Cautious volume challenge with albumin. Hold losartan. Reassess kidney function. Plan Left seventh rib fracture. Tylenol as needed. Supportive care. Incentive spirometer. Attestations Medical Necessity Statement*: Requiring admission over 2 midnights for assessment and management of very severe orthostasis, bradycardia, COLLEEN and gentleman with underlying diabetes. Diagnoses Syncope and collapse R55 Orthostatic hypotension I95.1 Bradycardia R00.1 COLLEEN (acute kidney injury) N17.9
[2024-07-07] MEDS: albumin 25 G/100 ML BAG 60 G IV (21:37)
[2024-07-08] VITALS (11 sets, daily range): BP systolic 96–186; BP diastolic 53–81; PULSE 46–51; RESP 2–16; TEMP 36.5–37.1; O2SAT 91–99; BMI 23.1
[2024-07-08 03:41] LABS: Basophils % 0.7 %; Eosinophils # 0.6 10^3/uL (0.0-0.8); Eosinophils % 9.3 %; Hematocrit 28.2 % (37-53); Lymphocytes # 1.1 10^3/uL (0.8-4.8); Lymphocytes % 19.2 %; Mean Corpuscular HGB Conc 31.9 g/dL (30-55); Mean Corpuscular Hemoglobin 29.8 pg (27-33); Mean Corpuscular Volume 93.4 fl (82-101); Mean Platelet Volume 11.1 fL (7.4-10.4); Monocytes # 0.7 10^3/uL (0.2-0.9); Monocytes % 12.3 %; Neutrophils # 3.46 10^3/uL (1.8-7.7); Neutrophils % 58.3 %; Nucleated Red Blood Cells % 0 %; Platelet Count 206 10^3/cmm (157-399); Red Blood Count 3.02 10^6/uL (3.85-5.65); Red Cell Distribution Width 13.3 % (12.1-15.1); White Blood Count 5.93 10^3/uL (3.29-11.43)
[2024-07-08 04:03] LABS: Blood Urea Nitrogen 64 mg/dL (8-23); Calcium 8.5 mg/dL (8.5-10.5); Carbon Dioxide 26 mmol/L (22-29); Chloride 100 mmol/L (98-107); Creatinine Clr Calc Pharmacy 44.5497; Glomerular Filtration Rate 36.3 mL/min (90-130); Glucose 114 mg/dL (65-115); Osmolality Calculated 303 mOsm/kg (285-295); Sodium 137 mmol/L (136-145)
[2024-07-08 04:04] LABS: Anion Gap 14.3 (5-19); Potassium 3.3 mmol/L (3.5-5.1)
[2024-07-08] MEDS: levothyroxine 50 mcg Tablet PO (05:14)
[2024-07-08 07:12] LABS: Glucose Point of Care 124 mg/dL (70-110)
[2024-07-08] MEDS: aspirin 81 mg EC Tablet PO (08:34)
--- NOTE | 2024-07-08 11:14 | PM.PN ---
Subjective Subjective: He could not sleep well at night. Was bothered by facial pain. Denies additional developments this morning. Vitals/I&O/Wt Last Vital Signs Temp 98.6 F 07/08/24 07:23 Pulse 47 L 07/08/24 08:54 Resp 12 07/08/24 07:23 BP 158/74 07/08/24 08:54 Pulse Ox 96 07/08/24 07:23 O2 Del Method Room Air 07/08/24 07:23 07/07/24 07/08/24 07/08/24 22:59 06:59 14:59 Intake Total 150 / 870 340 / 1210 360 / 360 Output Total 1700 / 2800 1000 / 3800 Balance -1550 / -1930 -660 / -2590 360 / 360 Weight last 48 hrs Weight 75.3 kg Weight 77.5 kg Weight 67.5 kg Physical Exam Const: COMMON NORMALS: patient oriented x3 and alert GENERAL APPEARANCE: cooperative ORIENTATION/CONSCIOUSNESS: Yes awake HENMT: COMMON NORMALS: oropharynx normal OTHER: Right lower forehead hematoma. Facial bruising over the glabella, bridge of the nose, as well as down around lower orbits. Neck/C-Spine: COMMON NORMALS: no JVD Resp: COMMON NORMALS: normal respiratory effort and clear to auscultation bilaterally AUSCULTATION: clear to auscultation bilaterally Cardio: COMMON NORMALS: no JVD, regular rhythm, S1 normal heart sound present, S2 normal heart sound present and No murmurs present (Cardio) RHYTHM: regular rhythm HEART SOUNDS: S1 normal heart sound present and S2 normal heart sound present GI: COMMON NORMALS: Normal to inspection, nondistended, normoactive bowel sounds present, Soft to palpation and non-tender PALPATION: Yes Soft to palpation Extremity: COMMON NORMALS: no joint enlargement and no pedal edema Neuro: COMMON NORMALS: patient oriented x3 and moves all extremities SENSORIUM/ORIENTATION: Yes alert Skin: COMMON NORMALS: no rashes or lesions noted GENERAL SKIN EXAM: no rashes or lesions noted Urinary Catheter Management: Cota: Cath Placed During This Visit: yes Reason for Continuing Indwelling Catheter: Other Urinary Catheter Date of Insertion: 07/07/24 Urinary Catheter Time of Insertion: 07:18 Data 07/08/24 03:02 07/08/24 03:02 A&P Assessment and plan (1) Syncope and collapse: Heart rates remaining high 40s to low 50s. Repeat orthostatics requested. Reviewed, not quite as pronounced as before but still orthostatic 158/74 lying, 110/61 sitting, 96/53 standing. Continue to hold Lasix, losartan, dapagliflozin. Will give additional albumin. Monitor for risk of fluid overload. Monitor for risk of severe hypertension of medications. Discussed with cardiology, will additionally assess stress test (EKG portion only) to assess chronotropic incompetence. N.p.o. after midnight. Discussed with nursing, case management director. Reviewed vitals, CBC, BMP. Replace hypokalemia. Check magnesium. Echocardiogram Limited views. EF 35-4%, moderate LVH, grade 1 diastolic dysfunction. Left atrial dilation. Mild mitral regurgitation. Small size pericardial effusion. IVC is dilated. Lasix been on hold as has been losartan. Will check orthostatics in the morning. Reviewed TSH, normal. Continue levothyroxine. Recurrent syncope with collapse, with left seventh rib fracture last time, with forehead hematoma, with recurrent syncope, forehead and facial bruising. Severe orthostatic hypotension. Additionally is noted bradycardic. Does not appear to around 5 heart rate with standing. Blood pressure with decrease of over 90 mmHg from laying to standing. Reviewed vitals, CBC, CMP, troponin, requested magnesium, TSH, reviewed UA, EKG, face and cervical spine CT, head CT, chest x-ray. Reviewed ER provider note, discussed with ER provider. Discussed with circulating process inspector. With underlying nonischemic cardiopathy with recent coronary angiogram with moderate coronary disease without significant blockages. A number of risk factors for syncope including cardiomyopathy, orthostatic hypotension, bradycardia. He is on Lasix at home, dapagliflozin, additionally losartan dose has been increased recently. All may contribute to orthostasis and/or syncope. Additionally with noted COLLEEN on CKD, creatinine up to 2.6, BUN up to 57. Bicarb 25. Discussed with him and cardiology consideration of bradycardia contribution. Does appear to have sinus beats with some junctional beats. At current time consideration of severe to stasis as primary theology with bradycardia possibly secondary. Hold off Lasix. Will give a dose of albumin. Hold off losartan, dapagliflozin. Will reassess TTE. Monitor on telemetry. In case of significant pauses. He knows that we may not have ability to place a pacemaker here in case 1 was needed, but temporary pacemaker can be placed should it become necessary. At current time discussed with him maintaining bedrest. Will reassess volume status, renal function. Not a candidate for midodrine due to bradycardia. (2) Orthostatic hypotension: Additnl 25 g of 25% albumin infusion. Hold Lasix, dapagliflozin, losartan. Monitor for risk of CHF, pulmonary edema, fluid overload. Discussed with him orthostatic precautions. (3) Bradycardia: So far without improvement. Reviewed chemistry. Replace additional potassium. Recheck level. Stress test in the morning to assess for chronotropic insufficiency. Reviewed magnesium, TSH. Continue telemetry monitoring. Not on beta-femi or calcium channel femi. Complete troponin EKG series. Reassess CT with history of nonischemic cardiomyopathy. He is hypertensive. (4) COLLEEN (acute kidney injury): Mild improvement reviewed BUN, creatinine, Biopar,, potassium. Creatinine down to 2.4. Will give additional dose of albumin monitor for risk of fluid overload Hold diuretic. Cautious volume challenge with albumin. Hold losartan. Reassess kidney function. Plan Left seventh rib fracture. He has been using incentive spirometer. Pain is improving. Tylenol as needed. Supportive care. Incentive spirometer. Attestations Medical Necessity Statement*: Continue admission for assessment of management of syncopal episodes with severe orthostatic hypotension, bradycardia, not on siomara blocking agents, COLLEEN. and High MDM includes amount and/or complexity of data reviewed/ordered [ resulted lab(s)/test(s), ordered lab(s)/test(s) and other healthcare professional discussion] and described risk of complication, morbidity or mortality of management as documented Diagnoses Syncope and collapse R55 Orthostatic hypotension I95.1 Bradycardia R00.1 COLLEEN (acute kidney injury) N17.9
[2024-07-08 11:53] LABS: Glucose Point of Care 214 mg/dL (70-110)
[2024-07-08] MEDS: potassium chloride ER 20 mEq Tablet 40 MEQ PO (12:03)
[2024-07-08] MEDS: insulin lispro 100 unit/1 mL SUBCUT ×3 (12:03→21:54)
[2024-07-08 16:59] LABS: Glucose Point of Care 156 mg/dL (70-110)
[2024-07-08] MEDS: HYDROcodone-acetaminophen 5-325 mg Tablet 1 TAB PO (18:09)
[2024-07-08] MEDS: albumin 25 G/100 ML BAG 60 G IV (18:28)
[2024-07-08 20:46] LABS: Glucose Point of Care 233 mg/dL (70-110)
[2024-07-09] VITALS (9 sets, daily range): BP systolic 143–179; BP diastolic 69–88; PULSE 45–56; RESP 12–17; TEMP 36.5–37.1; O2SAT 96–98
[2024-07-09 03:50] LABS: Basophils % 0.6 %; Eosinophils # 0.6 10^3/uL (0.0-0.8); Hematocrit 28.1 % (37-53); Lymphocytes # 1.2 10^3/uL (0.8-4.8); Lymphocytes % 17.2 %; Mean Corpuscular HGB Conc 32.7 g/dL (30-55); Mean Corpuscular Hemoglobin 29.8 pg (27-33); Mean Corpuscular Volume 90.9 fl (82-101); Mean Platelet Volume 10.9 fL (7.4-10.4); Monocytes # 0.8 10^3/uL (0.2-0.9); Monocytes % 11.8 %; Neutrophils # 4.28 10^3/uL (1.8-7.7); Neutrophils % 62.3 %; Nucleated Red Blood Cells % 0 %; Platelet Count 216 10^3/cmm (157-399); Red Blood Count 3.09 10^6/uL (3.85-5.65); Red Cell Distribution Width 13.2 % (12.1-15.1); White Blood Count 6.87 10^3/uL (3.29-11.43)
[2024-07-09 04:21] LABS: Magnesium 2.3 mg/dL (1.7-2.3)
[2024-07-09 04:23] LABS: Anion Gap 17.4 (5-19); Blood Urea Nitrogen 60 mg/dL (8-23); Calcium 8.9 mg/dL (8.5-10.5); Carbon Dioxide 25 mmol/L (22-29); Chloride 100 mmol/L (98-107); Creatinine Clr Calc Pharmacy 44.0351; Glomerular Filtration Rate 36.3 mL/min (90-130); Glucose 112 mg/dL (65-115); Osmolality Calculated 306 mOsm/kg (285-295); Potassium 3.4 mmol/L (3.5-5.1); Sodium 139 mmol/L (136-145)
[2024-07-09] MEDS: levothyroxine 50 mcg Tablet PO (05:40)
[2024-07-09 06:22] LABS: Glucose Point of Care 117 mg/dL (70-110)
--- NOTE | 2024-07-09 06:33 | SUR.PREOP ---
PRE OP ASSESSMENT Went to floor to get patient for stress testing. Patient noted to have mccann catheter in place and is very hesitant about attempting to even stand up let alone perform physical exercise d/t unsteady gait and falling hx just with changing postions from sitting to standing. Discussed with [facility] nursing staff and they state the same that he cannot even get out of bed without being dizzy and feeling faint. Patient is significant fall risk given the above findings. Test placed on hold at this time. Dr Tinoco to be informed once he comes on shift at 7 am. Awaiting further orders.
[2024-07-09] MEDS: aspirin 81 mg EC Tablet PO (07:58)
--- NOTE | 2024-07-09 08:13 | SUR.PREOP ---
STRESS CANCELLED. Spoke with Dr Corky ramirez patients condition. Test cancelled at this point. Cardiology to assess. CSU notified.
--- NOTE | 2024-07-09 10:07 | P.CONIM_ITS ---
Providers/Reason For Consult 2 Consulting Physician/Specialty*: EDWAR Conte MD/cardiology Reason for Consult*: Patient with a severe orthostatic hypotension/bradycardia Requesting Physician: Dr. Tinoco Attending Physician: Tin Tinoco Primary Care Provider: Nicole Gross APN History of Present Illness History of Present Illness Hector Whitaker is a 58 year old male with a history of nonischemic cardiomyopathy and congestive heart failure, he is admitted to hospital with complaints of recurrent episodes of syncope. He was found to have severe orthostatic hypotension. He also was found to have a heart rate in the 40s with no significant change with change of posture or activities. Cardiology consult is requested for further cardiac evaluation recommendations. This patient was recently discharged in the hospital where he was admitted with the features of anasarca/congestive heart failure. He was found to have features of nonischemic cardiomyopathy. The cardia catheterization revealed second diagonal branch of the left and descending artery with a high-grade stenosis, not amenable for intervention. Otherwise mild coronary disease. Features are consistent with nonischemic cardiomyopathy. The echocardiogram done during this hospital admission revealed ejection fraction of 35 to 40%. According to the patient, he had 4 episodes of passing out spell, prior to the hospital admission. According to him, every day when he tried to get up from the sitting up or lying down position, he get dizzy and passed out. He apparently developed contusion of his forehead with these episodes. He did not have any bladder or bowel incontinence. No seizure activities. According the patient, he never had any similar symptoms prior to this. Prior to his congestive heart failure, he did not have any prolonged episodes of fever or viral illness. He has a history of hypertension , type 2 diabetes, dyslipidemia and recently diagnosed kidney disease. Apparently he lost around 40 pounds since his last hospital admission. Cardiac canales he was debilitated for a while. This may have a significant contribution to his orthostatic hypotension as well Review of Systems 2 Narrative: CONSTITUTIONAL: No fever or chills. EYES: No blurring of vision or other visual disturbances lately. ENT: No hoarseness of voice, auditory disturbances or sore throat. CARDIOVASCULAR: As mentioned above. RESPIRATORY: Shortness of breath GASTROINTESTINAL: No hematemesis or melena. GENITOURINARY: No dysuria or hematuria. INTEGUMENTARY: No skin rashes or history of skin cancer. NEURO: Recurrent syncopal episodes PSYCHIATRIC: No history of psychosis or major depression. HEMATOLOGIC: No bleeding disorders or significant anemia. ENDOCRINE: No history of polyuria or polydipsia. MUSCULOSKELETAL: No recent joint pain or swelling. ALLERGY/IMMUNOLOGY: As mentioned above. Medications/Allergies Home Medications Medication Instructions Recorded Confirmed Last Taken Type multivitamin with minerals 1 tab PO DAILY 05/05/24 07/06/24 07/04/24 History ciprofloxacin HCl 500 mg tablet 500 mg PO BID #6 tabs 05/15/24 07/06/24 07/04/24 Rx levothyroxine 50 mcg tablet 50 mcg PO QAM #30 tabs 05/15/24 07/06/24 07/04/24 Rx aspirin 81 mg tablet,delayed 81 mg PO DAILY #30 tabs 05/28/24 07/06/24 07/04/24 Rx release atorvastatin 40 mg tablet 40 mg PO BEDTIME #90 tabs 05/28/24 07/06/24 07/04/24 Rx dapagliflozin propanediol 10 mg 10 mg PO DAILY #90 tabs 05/28/24 07/06/24 07/04/24 Rx tablet (Farxiga) furosemide 40 mg tablet 40 mg PO BID@08,16 #60 tabs 05/28/24 07/06/24 07/04/24 Rx losartan 50 mg tablet 50 mg PO DAILY #30 tabs 06/15/24 07/06/24 07/04/24 Rx Diabetic Shoes #1 ea 06/28/24 07/06/24 Unknown Rx Allergies Allergy/AdvReac Type Severity Reaction Status Date / Time bee venom protein (honey bee) Allergy ALGY-Swell Verified 06/28/24 13:00 Lip/Tongue/Throat Current Medications Generic Name Dose Route Start Last Admin Trade Name Freq PRN Reason Stop Dose Admin Acetaminophen 650 mg 07/06/24 17:31 07/06/24 23:14 Acetaminophen 325 Mg Tablet PO 650 mg Q6H PRN Administration Mild/Mod Pain Or Temp >/= 101 Hydrocodone Bitart/Acetaminophen 1 tab 07/06/24 23:04 07/08/24 18:09 Hydrocodone-Acetaminophen 5-325 Mg Tablet PO 1 tab Q12H PRN Administration MODERATE PAIN Aspirin 81 mg 07/07/24 09:00 07/09/24 07:58 Aspirin 81 Mg Ec Tablet PO 81 mg DAILY JUJU Administration Insulin Human Lispro 0 unit 07/06/24 18:00 07/09/24 07:36 Insulin Lispro 100 Unit/1 Ml SUBCUT Not Given WM&BEDTIME JUJU Protocol Levothyroxine Sodium 50 mcg 07/07/24 06:00 07/09/24 05:40 Levothyroxine 50 Mcg Tablet PO 50 mcg QAM JUJU Administration PFSH Acute 2 PFSH: Medical History Fracture, ribs Syncope due to orthostatic hypotension Diabetes mellitus LVEF <40% Kidney disease CHF (congestive heart failure) Proteinuria Hypertension Social History Smoking and tobacco/nicotine status: never used tobacco/nicotine Vitals/I&O/Wt Last Vital Signs Temp 97.9 F 07/09/24 07:36 Pulse 47 L 07/09/24 08:41 Resp 16 07/09/24 07:36 BP 177/82 07/09/24 08:41 Pulse Ox 98 07/09/24 07:36 O2 Del Method Room Air 07/09/24 07:36 07/08/24 07/09/24 07/09/24 22:59 06:59 14:59 Intake Total 820 / 1660 600 / 2260 Output Total 800 / 800 700 / 1500 Balance 20 / 860 -100 / 760 Weight last 48 hrs Weight 165 lb 5.547 oz Weight 166 lb 0.129 oz Physical Exam 2 Narrative: GENERAL: The patient is alert and oriented times three. Not in any acute distress. HEENT: Minimal pallor with no icterus. Contusion around the eye socket, forehead with some diffuse ecchymosis NECK: Trachea appears to be central. No masses noted. No JVD or thyromegaly appreciated. Carotid bruit on the left side. RESPIRATORY: Chest is symmetrical. No intercostals muscle retraction or any accessory muscle activation. There is no chest wall tenderness. Breath sounds are heard bilaterally. No rales or rhonchi heard. No evidence of any consolidation. BREASTS: Deferred. HEART: The heart sounds are normal. No S3 or S4. No significant murmurs. No pericardial rub ABDOMEN: No vessel pulsations or distention. No tenderness. No organomegaly appreciated. Bowel sounds are normally heard. : Deferred. RECTAL: Deferred. LYMPHATIC: No lymphadenopathy noted in the neck. EXTREMITIES: No edema or cyanosis. No clubbing. Peripheral pulses are palpable but weak bilaterally. MUSCULOSKELETAL: No acute joint deformities or swelling SKIN: There are no significant rashes or ecchymosis NEUROPSYCHIATRIC: The patient is alert and oriented x3. Appears to be in a good mood. No tremors or rigidity noted. Urinary Catheter Management: Cota: Cath Placed During This Visit: yes Reason for Continuing Indwelling Catheter: Other Urinary Catheter Date of Insertion: 07/07/24 Urinary Catheter Time of Insertion: 07:18 Data 07/09/24 03:15 07/09/24 03:15 Other Labs: Laboratory Last Values WBC 6.87 10^3/uL (3.29-11.43) 07/09/24 03:15 RBC 3.09 10^6/uL (3.85-5.65) L 07/09/24 03:15 Hgb 9.20 g/dL (11.27-16.99) L 07/09/24 03:15 Hct 28.1 % (37-53) L 07/09/24 03:15 MCV 90.9 fl (82-101) 07/09/24 03:15 MCH 29.8 pg (27-33) 07/09/24 03:15 MCHC 32.7 g/dL (30-55) 07/09/24 03:15 RDW 13.2 % (12.1-15.1) 07/09/24 03:15 Plt Count 216 10^3/cmm (157-399) 07/09/24 03:15 MPV 10.9 fL (7.4-10.4) H 07/09/24 03:15 Neut % (Auto) 62.3 % 07/09/24 03:15 Lymph % (Auto) 17.2 % 07/09/24 03:15 [place] % (Auto) 11.8 % 07/09/24 03:15 Eos % (Auto) 8.0 % 07/09/24 03:15 Baso % (Auto) 0.6 % 07/09/24 03:15 Neut # (Auto) 4.28 10^3/uL (1.8-7.7) 07/09/24 03:15 Lymph # (Auto) 1.2 10^3/uL (0.8-4.8) 07/09/24 03:15 [place] # (Auto) 0.8 10^3/uL (0.2-0.9) 07/09/24 03:15 Eos # (Auto) 0.6 10^3/uL (0.0-0.8) 07/09/24 03:15 Baso # (Auto) 0.0 10^3/uL (0.0-0.1) 07/09/24 03:15 Nucleated RBC % (auto) 0 % 07/09/24 03:15 Nucleated RBCs # 0.0 /100WBC 07/09/24 03:15 Sodium 139 mmol/L (136-145) 07/09/24 03:15 Potassium 3.4 mmol/L (3.5-5.1) L 07/09/24 03:15 Chloride 100 mmol/L (98-107) 07/09/24 03:15 Carbon Dioxide 25 mmol/L (22-29) 07/09/24 03:15 Anion Gap 17.4 (5-19) 07/09/24 03:15 BUN 60 mg/dL (8-23) H 07/09/24 03:15 Creatinine 1.9 mg/dL (0.7-1.2) H 07/09/24 03:15 GFR Calculation 36.3 mL/min (90-130) L 07/09/24 03:15 Glucose 112 mg/dL (65-115) 07/09/24 03:15 POC Glucose 169 mg/dL (70-110) H 07/09/24 11:06 Calculated Osmolality 306 mOsm/kg (285-295) H 07/09/24 03:15 Calcium 8.9 mg/dL (8.5-10.5) 07/09/24 03:15 Magnesium 2.3 mg/dL (1.7-2.3) 07/09/24 03:15 Total Bilirubin 0.4 mg/dL (0.15-1.2) 07/07/24 02:31 AST 20 U/L (0-40) 07/07/24 02:31 ALT 38 U/L (0-41) 07/07/24 02:31 Alkaline Phosphatase 72 U/L (40-130) 07/07/24 02:31 Troponin T Baseline 162 ng/L (0-15) H* 07/06/24 11:29 Troponin T 120 Minute 145.3 ng/L (0-15) H 07/06/24 13:29 Delta Troponin T -16.7 ABS# (0-10) L 07/06/24 13:29 Troponin T Hi Sens 6Hr 131.8 ng/L (0-15) H 07/06/24 17:50 Troponin T Hi Sens 6Hr Delta -30.2 ng/L (0-12) L 07/06/24 17:50 Total Protein 6.0 g/dL (6.6-8.7) L 07/07/24 02:31 Albumin 3.0 g/dL (3.5-5.2) L 07/07/24 02:31 Globulin 3.0 g/dL (1.3-4.6) 07/07/24 02:31 TSH 4.19 uIU/mL (0.27-4.20) 07/06/24 13:29 Urine Color Yellow (Yellow) 07/06/24 14:23 Urine Appearance Clear (CLEAR) 07/06/24 14:23 Urine pH 5.0 (5-7) 07/06/24 14:23 Ur Specific [place] 1.018 (1.005-1.030) 07/06/24 14:23 Urine Protein 3+ (Negative) A 07/06/24 14:23 Urine Glucose (UA) 2+ (Normal) H 07/06/24 14:23 Urine Ketones Negative (Negative) 07/06/24 14:23 Urine Blood Negative (Negative) 07/06/24 14:23 Urine Nitrate Negative (Negative) 07/06/24 14:23 Urine Bilirubin Negative (Negative) 07/06/24 14:23 Urine Urobilinogen 0.2 mg/dL (Negative) 07/06/24 14:23 Ur Leukocyte Esterase Negative (Negative) 07/06/24 14:23 Urine RBC 0-2 /hpf (0-2) 07/06/24 14:23 Urine WBC 0-5 /hpf (0-5) 07/06/24 14:23 Ur Squamous Epith Cells 0-5 /hpf (0-5) 07/06/24 14:23 Amorphous Sediment 1+ /hpf 07/06/24 14:23 Urine Bacteria None seen /hpf (NONE) 07/06/24 14:23 Hyaline Casts 29.78 /lpf 07/06/24 14:23 Fine Granular Casts 5-10 /lpf H 07/06/24 14:23 Other data: [facility] * INDICATION: LV dysfunction. * Left Main has mild luminal irregularities. * Circumflex has mild luminal irregularities. * Right Coronary Artery has mild luminal irregularities. * LAD has diffuse mild to moderate luminal irregularities. Distal Left Anterior Descending: mild 40% stenosis, ALEXANDER: 3 flow. * 2nd Diagonal: severe 90% stenosis, [place]ER: 3 flow. * Coronary angiography shows right dominance. A&P Assessment and plan (1) Orthostatic hypotension: In view of the supine hypertension, I may try pyridostigmine 60 mg p.o. twice daily and watch the response. (2) Nonischemic congestive cardiomyopathy: In view of the patient's nonischemic cardiomyopathy, congestive heart failure, bradycardia with chronotropic incompetence and widened QRS complex, he may benefit from BiV pacing. I will be discussing this case with the audio visual project manager and make a decision on this. (3) Supine hypertension: May continue on the losartan for the time being. (4) Dyslipidemia: May continue on the current medications. (5) Atherosclerosis of coronary artery of [place] heart without angina pectoris: Continue on the current management Qualifiers: Coronary Disease-Associated Artery/Lesion type: [place] artery Qualified Code(s): I25.10 - Atherosclerotic heart disease of [place] coronary artery without angina pectoris (6) LVEF <40%: In view of the recurrent heart failure , tropic incompetence and orthostatic hypotension, patient may benefit from BiV pacing. His QRS duration appears to be more than 140 ms (7) Recurrent syncope: As above. Most likely from the orthostatic hypotension and bradycardia (8) Diabetes mellitus: Continue on the current management Qualifiers: Diabetes mellitus complication status: with other specified complication Diabetes mellitus joint terminal attack controller insulin use: without joint terminal attack controller use Diabetes mellitus type: type 2 Qualified Code(s): E11.69 - Type 2 diabetes mellitus with other specified complication (9) Kidney disease: Continue on the current management (10) Left carotid bruit: Carotid bruit suggestive of significant carotid artery stenosis. For further evaluation, a carotid duplex will be appropriate. Plan Will go ahead and order for a carotid duplex lamination to further evaluate the carotid bruit Encourage encourage physical therapy for slow ambulation.Consider outpatient EP consult for BiV pacing Based on the clinical progress, further recommendations will be made. Thank for the opportunity to evaluate this patient and make these recommendations Coding Level of Care Code 99941 Diagnoses Orthostatic hypotension I95.1 Nonischemic congestive cardiomyopathy I42.0 Supine hypertension I10 Dyslipidemia E78.5 Atherosclerosis of [place] coronary artery of [place] heart without angina pectoris I25.10 Coronary Disease-Associated Artery/Lesion type: [place] artery LVEF <40% R93.1 Recurrent syncope R55 Type 2 diabetes mellitus with other specified complication, without long-term current use of insulin E11.69 Diabetes mellitus complication status: with other specified complication Diabetes mellitus joint terminal attack controller insulin use: without longterm use Diabetes mellitus type: type 2 Kidney disease N28.9 Left carotid bruit R09.89
[2024-07-09 11:16] LABS: Glucose Point of Care 169 mg/dL (70-110)
--- NOTE | 2024-07-09 13:11 | USCV_ITS ---
Hector Whitaker Age: 58 Gender: M : 1965 Exam Date: 07/09/2024 14:29 Ordering Phys: Lynda Conte MD ([email or web address]) Technologist: Sen Bain [place] [facility] [place]: syncope/ carotid bruit Risk Factors: Previous Vascular Surgery: Right Brachial BP: / Left Brachial BP: / Right Left Velocity (cm/s) Spectral Plaque Velocity (cm/s) Spectral Plaque Syst/Diast Broadening Syst/Diast Broadening 108.70/24.50 Prox CCA 113.70/ 21.40 91.90/ 21.90 Mid CCA 98.20 / 21.20 75.00/ 11.50 Distal CCA 87.30 / 14.80 49.70/ 12.10 Prox ICA 79.90 / 17.50 40.30/ 9.30 Mid ICA 68.00 / 18.70 32.60/ 11.10 Distal ICA 140.00/ 34.90 88.00 ECA 103.40 0.70 ICA/CCA 1.60 Antegrade Vertebral Antegrade 82.60/ 10.50 cm/s 103.0/ 20.10 cm/s 0 Tri Subclavian Tri 169.8 145.8 0 0 FINDINGS Intimal thickening in the carotid arteries bilaterally. No unstable plaques or lesions were noted. Elevated velocity in the left distal ICA Anterior flow in the vertebral arteries bilaterally Normal Doppler flow velocities in the external carotid, subclavian and vertebral arteries bilaterally CONCLUSIONS 1. Thickening of the common carotid and internal carotid arteries bilaterally. 2. Elevated velocity in the left distal ICA, may suggest hemodynamically significant stenosis. Consider CTA to better evaluate the distal ICA. 3. No severe stenosis in the external, vertebral and subclavian arteries, based on the above findings Dr Lynda Conte MD [facility] (Electronically Signed) Final Date: 09 July 2024 21:17 S
[2024-07-09 17:09] LABS: Glucose Point of Care 241 mg/dL (70-110)
[2024-07-09] MEDS: pyridostigmine 60 mg Tablet PO (18:52)
[2024-07-09] MEDS: insulin lispro 100 unit/1 mL SUBCUT ×2 (18:52→21:09)
[2024-07-09] MEDS: HYDROcodone-acetaminophen 5-325 mg Tablet 1 TAB PO (18:52)
[2024-07-09 20:37] LABS: Glucose Point of Care 237 mg/dL (70-110)
--- NOTE | 2024-07-09 22:22 | PM.TDS ---
Transfer Summary Providers Date of Admission: 07/07/24 20:35 Date of Discharge/Transfer: 07/09/24 Attending Provider at Admission: Tin Tinoco Attending Provider at Transfer: Tin Tinoco Primary Care Provider: Nicole Gross APN Transfer Plans: Anticipated date of transfer: 07/09/24. Diagnoses at Discharge Discharge Diagnosis (1) Orthostatic hypotension: Status: Acute (2) Nonischemic congestive cardiomyopathy: Status: Acute (3) Supine hypertension: Status: Acute (4) Dyslipidemia: Status: Acute (5) Atherosclerosis of coronary artery of [place] heart without angina pectoris: Status: Acute Qualifiers: Coronary Disease-Associated Artery/Lesion type: [place] artery Qualified Code(s): I25.10 - Atherosclerotic heart disease of [place] coronary artery without angina pectoris (6) LVEF <40%: Status: Acute (7) Recurrent syncope: Status: Acute (8) Diabetes mellitus: Status: Acute Qualifiers: Diabetes mellitus type: type 2 Diabetes mellitus residential insulin use: without residential use Diabetes mellitus complication status: with other specified complication Qualified Code(s): E11.69 - Type 2 diabetes mellitus with other specified complication (9) Kidney disease: Status: Acute (10) Left carotid bruit: Status: Acute Reason for Visit Reason for Visit Syncope Brief History: Pleasant 58-year-old gentleman with history of nonischemic cardiomyopathy, status post coronary angiography on 06/15 with moderate CAD, with history of orthostatic hypotension, with syncopal episode on 07/04 with COLLEEN, with left seventh lateral rib fractures, with positive orthostatics at that time, was referred for follow-up with primary provider for reassessment. Returns to the hospital after additional syncopal episode with fall and injury to his head, with forehead hematoma, facial bruising. In ER he is again found to be orthostatic, blood pressure 149/74 laying, 102/51 standing, with bradycardia in the 40s. Facial CT without acute fracture, soft tissue hematoma in the right forehead. Cervical spine CT nonacute. Head CT without acute intracranial hemorrhage mass or infarction. No acute skull fracture. Persistent soft tissue [place] on the right forehead with decreased thickness since 07/04. Chest x-ray with cardiomegaly with small left effusion. Large hiatal hernia. Moderately displaced posterior left lateral seventh rib fracture. He losartan for blood pressure control. ER physician initially mistakenly considering metoprolol as a culprit. However, on further discussion he denies taking any beta-blockers. His medication list that he has with him did not have any beta-blockade or calcium channel blocking agents. He otherwise denies any new acute issues. He does have hypothyroidism. Hospital Course Hospital Course He was kept on bedrest with getting up with assistance, reassessment of orthostatics. Furosemide, losartan were held. With noted low albumin received daily albumin infusions. TSH is normal. Received potassium replacement for mild hypokalemia, magnesium is normal. COLLEEN noted with improvement, creatinine trending down from 2.6 down to 1.9. Baseline appears about 1.4-1.8. Still without improvement in orthostasis. And not ramping up his heart rate when standing up heart rate remaining 47-49. Stress test for assessment of chronotropic insufficiency considered, but severely orthostatic. Unable to make a few steps, unable to participate. Cardiology consulted, appreciate evaluation. Not a candidate for midodrine, fludrocortisone due to underlying bradycardia, cardiomyopathy, EF 35 to 40% again noted on reassessment echocardiogram. Cardiology is getting give a trial of pyridostigmine, and with chronotropic insufficiency without any rise in heart rate with standing or activity, with severe debility and loss of function due to severe orthostasis, consideration of pacemaker, he is kindly accepted for additional evaluation and management by electrophysiology at [facility]. With some mild chronic anemia, hemoglobin 9-10. Did have some BUN elevation. Hemoccult is ordered. At home usually on aspirin alone. Anemia was noted in May, at that point Hemoccult was positive. PPI is added and he would benefit from follow-up with PCP for reassessment of anemia and arrangement for of endoscopic evaluation once he improves from acute illness, with noted iron deficiency back in May. He is started on iron supplementation. Physical Exam Const: COMMON NORMALS: patient oriented x3 and alert GENERAL APPEARANCE: cooperative ORIENTATION/CONSCIOUSNESS: Yes awake HENMT: COMMON NORMALS: oropharynx normal OTHER: Right lower forehead hematoma. Facial bruising over the glabella, bridge of the nose, as well as down around lower orbits. Neck/C-Spine: COMMON NORMALS: no JVD Resp: COMMON NORMALS: normal respiratory effort and clear to auscultation bilaterally AUSCULTATION: clear to auscultation bilaterally Cardio: COMMON NORMALS: no JVD, regular rhythm, S1 normal heart sound present, S2 normal heart sound present and No murmurs present (Cardio) RHYTHM: regular rhythm HEART SOUNDS: S1 normal heart sound present and S2 normal heart sound present GI: COMMON NORMALS: Normal to inspection, nondistended, normoactive bowel sounds present, Soft to palpation and non-tender PALPATION: Yes Soft to palpation Extremity: COMMON NORMALS: no joint enlargement and no pedal edema Neuro: COMMON NORMALS: patient oriented x3 and moves all extremities SENSORIUM/ORIENTATION: Yes alert Skin: COMMON NORMALS: no rashes or lesions noted GENERAL SKIN EXAM: no rashes or lesions noted Urinary Catheter Management: Cota: Cath Placed During This Visit: yes Reason for Continuing Indwelling Catheter: Other Urinary Catheter Date of Insertion: 07/07/24 Urinary Catheter Time of Insertion: 07:18 TS Data Studies Completed and Pending Pending at discharge Category Date Time Status Cardiac Stress Test Request Routine Exams 07/09/24 06:00 Ordered Basic Metabolic Panel AM LABS Lab 07/10/24 04:00 Ordered Occult Blood Stool [Immunochemical Fecal OCB] Routine Lab 07/09/24 14:02 Uncollected Completed Studies During Hospitalization Category Date Time Status CT cervical spin wo con* [id number] Stat Cat Scan 07/06/24 12:[address] facial bones wo con* [id number] Stat Cat Scan 07/06/24 12:[address] head wo con* [id number] Stat Cat Scan 07/06/24 12:06 Completed XR chest 1V portable [id number] Stat Exams 07/06/24 11:07 Completed CV carotid duplex BI* [id number] Routine Ultrasound 07/09/24 13:11 Completed CV. echo limited [id number] Routine Ultrasound 07/06/24 18:02 Completed Laboratory Last Values WBC 6.87 10^3/uL (3.29-11.43) 07/09/24 03:15 RBC 3.09 10^6/uL (3.85-5.65) L 07/09/24 03:15 Hgb 9.20 g/dL (11.27-16.99) L 07/09/24 03:15 Hct 28.1 % (37-53) L 07/09/24 03:15 MCV 90.9 fl (82-101) 07/09/24 03:15 MCH 29.8 pg (27-33) 07/09/24 03:15 MCHC 32.7 g/dL (30-55) 07/09/24 03:15 RDW 13.2 % (12.1-15.1) 07/09/24 03:15 Plt Count 216 10^3/cmm (157-399) 07/09/24 03:15 MPV 10.9 fL (7.4-10.4) H 07/09/24 03:15 Neut % (Auto) 62.3 % 07/09/24 03:15 Lymph % (Auto) 17.2 % 07/09/24 03:15 [place] % (Auto) 11.8 % 07/09/24 03:15 Eos % (Auto) 8.0 % 07/09/24 03:15 Baso % (Auto) 0.6 % 07/09/24 03:15 Neut # (Auto) 4.28 10^3/uL (1.8-7.7) 07/09/24 03:15 Lymph # (Auto) 1.2 10^3/uL (0.8-4.8) 07/09/24 03:15 [place] # (Auto) 0.8 10^3/uL (0.2-0.9) 07/09/24 03:15 Eos # (Auto) 0.6 10^3/uL (0.0-0.8) 07/09/24 03:15 Baso # (Auto) 0.0 10^3/uL (0.0-0.1) 07/09/24 03:15 Nucleated RBC % (auto) 0 % 07/09/24 03:15 Nucleated RBCs # 0.0 /100WBC 07/09/24 03:15 Sodium 139 mmol/L (136-145) 07/09/24 03:15 Potassium 3.4 mmol/L (3.5-5.1) L 07/09/24 03:15 Chloride 100 mmol/L (98-107) 07/09/24 03:15 Carbon Dioxide 25 mmol/L (22-29) 07/09/24 03:15 Anion Gap 17.4 (5-19) 07/09/24 03:15 BUN 60 mg/dL (8-23) H 07/09/24 03:15 Creatinine 1.9 mg/dL (0.7-1.2) H 07/09/24 03:15 GFR Calculation 36.3 mL/min (90-130) L 07/09/24 03:15 Glucose 112 mg/dL (65-115) 07/09/24 03:15 POC Glucose 237 mg/dL (70-110) H 07/09/24 20:12 Calculated Osmolality 306 mOsm/kg (285-295) H 07/09/24 03:15 Calcium 8.9 mg/dL (8.5-10.5) 07/09/24 03:15 Magnesium 2.3 mg/dL (1.7-2.3) 07/09/24 03:15 Total Bilirubin 0.4 mg/dL (0.15-1.2) 07/07/24 02:31 AST 20 U/L (0-40) 07/07/24 02:31 ALT 38 U/L (0-41) 07/07/24 02:31 Alkaline Phosphatase 72 U/L (40-130) 07/07/24 02:31 Troponin T Baseline 162 ng/L (0-15) H* 07/06/24 11:29 Troponin T 120 Minute 145.3 ng/L (0-15) H 07/06/24 13:29 Delta Troponin T -16.7 ABS# (0-10) L 07/06/24 13:29 Troponin T Hi Sens 6Hr 131.8 ng/L (0-15) H 07/06/24 17:50 Troponin T Hi Sens 6Hr Delta -30.2 ng/L (0-12) L 07/06/24 17:50 Total Protein 6.0 g/dL (6.6-8.7) L 07/07/24 02:31 Albumin 3.0 g/dL (3.5-5.2) L 07/07/24 02:31 Globulin 3.0 g/dL (1.3-4.6) 07/07/24 02:31 TSH 4.19 uIU/mL (0.27-4.20) 07/06/24 13:29 Urine Color Yellow (Yellow) 07/06/24 14:23 Urine Appearance Clear (CLEAR) 07/06/24 14:23 Urine pH 5.0 (5-7) 07/06/24 14:23 Ur Specific [place] 1.018 (1.005-1.030) 07/06/24 14:23 Urine Protein 3+ (Negative) A 07/06/24 14:23 Urine Glucose (UA) 2+ (Normal) H 07/06/24 14:23 Urine Ketones Negative (Negative) 07/06/24 14:23 Urine Blood Negative (Negative) 07/06/24 14:23 Urine Nitrate Negative (Negative) 07/06/24 14:23 Urine Bilirubin Negative (Negative) 07/06/24 14:23 Urine Urobilinogen 0.2 mg/dL (Negative) 07/06/24 14:23 Ur Leukocyte Esterase Negative (Negative) 07/06/24 14:23 Urine RBC 0-2 /hpf (0-2) 07/06/24 14:23 Urine WBC 0-5 /hpf (0-5) 07/06/24 14:23 Ur Squamous Epith Cells 0-5 /hpf (0-5) 07/06/24 14:23 Amorphous Sediment 1+ /hpf 07/06/24 14:23 Urine Bacteria None seen /hpf (NONE) 07/06/24 14:23 Hyaline Casts 29.78 /lpf 07/06/24 14:23 Fine Granular Casts 5-10 /lpf H 07/06/24 14:23 Radiology Impressions Chest X-Ray 07/06/24 11:07 Impression: 1. Cardiomegaly with small left effusion. 2. Large hiatal hernia. 3. Moderately displaced posterior lateral left seventh rib fracture. Head CT 07/06/24 12:06 IMPRESSION: No CT evidence of acute intracranial hemorrhage, mass or acute infarction. No acute skull fracture. Persistent soft tissue hematoma in the right forehead with decreased thickness since 07/04/2024. Cervical Spine CT 07/06/24 12:07 IMPRESSION: No acute fracture. Face CT 07/06/24 12:07 IMPRESSION: No acute fracture. Soft tissue hematoma in the right forehead. Recent Clincial Data Last Vital Signs Temp 98.8 F 07/09/24 19:26 Pulse 50 L 07/09/24 20:00 Resp 14 07/09/24 20:00 BP 144/69 07/09/24 20:00 Pulse Ox 96 07/09/24 20:00 O2 Del Method Room Air 07/09/24 20:00 Vital Signs Temp Pulse Resp BP Pulse Ox O2 Del Method 07/09/24 20:00 50 L 14 144/69 96 Room Air 07/09/24 19:26 98.8 F 56 L 13 144/69 97 Room Air 07/09/24 16:00 97.8 F 48 L 17 153/70 96 Room Air 07/09/24 11:43 97.7 F 50 L 13 163/85 98 Room Air Intake & Output/Weight 07/07/24 07/08/24 07/09/24 07/10/24 06:59 06:59 06:59 06:59 Intake Total 480 / 480 1210 / 1210 2260 / 2260 490 / 490 Output Total 300 / 300 3800 / 3800 1500 / 1500 1250 / 1250 Balance 180 / 180 -2590 / -2590 760 / 760 -760 / -760 Weight 77.5 kg 75.3 kg 75 kg Vitals Last Vital Signs Temp 98.8 F 07/09/24 19:26 Pulse 50 L 07/09/24 20:00 Resp 14 07/09/24 20:00 BP 144/69 07/09/24 20:00 Pulse Ox 96 07/09/24 20:00 O2 Del Method Room Air 07/09/24 20:00 TS Medications Medications Acetaminophen (Acetaminophen 325 Mg Tablet) 650 mg PO Q6H PRN PRN Reason: Mild/Mod Pain Or Temp >/= 101 Last Admin: 07/06/24 23:14 Dose: 650 mg Hydrocodone Bitart/Acetaminophen (Hydrocodone-Acetaminophen 5-325 Mg Tablet) 1 tab PO Q12H PRN PRN Reason: MODERATE PAIN Last Admin: 07/09/24 18:52 Dose: 1 tab Aspirin (Aspirin 81 Mg Ec Tablet) 81 mg PO DAILY JUJU Last Admin: 07/09/24 07:58 Dose: 81 mg Esmolol HCl (Esmolol 100 Mg/10 Ml Sdv) 5 mg IVP Q2M PRN PRN Reason: See dose instructions Stop: 07/10/24 06:15 Glucagon (Glucagon 1 Mg/Ml Kit 1 Ml) 1 mg IM ONCE PRN; Protocol PRN Reason: Adult Acute Hypoglycemia Nursing Prot. Dextrose (D5w) 500 mls @ 0 mls/hr IV ONCE PRN; Protocol PRN Reason: Adult Acute Hypoglycemia Prot Dextrose (D10w) 125 mls @ 750 mls/hr IV PRN PRN; Protocol PRN Reason: Adult Acute Hypoglycemia Nursing Protocol Dextrose (D10w) 250 mls @ 1,000 mls/hr IV PRN PRN; Protocol PRN Reason: Adult Acute Hypoglycemia Nursing Protocol Insulin Human Lispro (Insulin Lispro 100 Unit/1 Ml) 0 unit SUBCUT WM&BEDTIME ON LICENSE OF [facility]; Protocol Last Admin: 07/09/24 21:09 Dose: 6 unit Levothyroxine Sodium (Levothyroxine 50 Mcg Tablet) 50 mcg PO QAM ON LICENSE OF [facility] Last Admin: 07/09/24 05:40 Dose: 50 mcg Metoprolol Tartrate (Metoprolol Tartrate 1 Mg/1 Ml Sdv 5 Ml) 5 mg IVP Q2M PRN PRN Reason: See dose instructions Stop: 07/10/24 06:15 Nitroglycerin (Nitroglycerin 0.4 Mg Sublingual Tablet) 0.4 mg SUBLINGUAL Q5M PRN PRN Reason: CHEST PAIN Stop: 07/10/24 06:15 Ondansetron HCl (Ondansetron 2 Mg/Ml Sdv 2 Ml) 4 mg IVP Q8H PRN PRN Reason: vomiting, or N/V if npo Ondansetron HCl (Ondansetron 2 Mg/Ml Sdv 2 Ml) 4 mg IVP Q1M PRN PRN Reason: NAUSEA AND VOMITING Stop: 07/10/24 06:15 Pyridostigmine [place] (Pyridostigmine 60 Mg Tablet) 60 mg PO BID ON LICENSE OF [facility] Last Admin: 07/09/24 18:52 Dose: 60 mg Discontinued Medications Hydrocodone Bitart/Acetaminophen (Hydrocodone-Acetaminophen 5-325 Mg Tablet) 1 tab PO ONCE ONE Stop: 07/06/24 15:36 Last Admin: 07/06/24 15:51 Dose: 1 tab Albumin Human (Albumin) 25 g in 100 mls @ 60 mls/hr IV ONCE ONE Stop: 07/06/24 18:56 Last Infusion: 07/06/24 19:44 Dose: Infused Albumin Human (Albumin) 25 g in 100 mls @ 60 mls/hr IV ONCE ONE Stop: 07/07/24 21:55 Last Infusion: 07/07/24 23:20 Dose: Infused Albumin Human (Albumin) 25 g in 100 mls @ 60 mls/hr IV ONCE ONE Stop: 07/08/24 18:29 Last Infusion: 07/08/24 20:21 Dose: Infused Potassium Chloride (Potassium Chloride Er 20 Meq Tablet) 40 meq PO ONCE ONE Stop: 07/08/24 11:15 Last Admin: 07/08/24 12:03 Dose: 40 meq Allergies bee venom protein (honey bee) Allergy (Verified 06/28/24 13:00) ALGY-Swell Lip/Tongue/Throat Home Medications multivitamin with minerals 1 tab PO DAILY 05/05/24 [History Confirmed 07/06/24] ciprofloxacin HCl 500 mg tablet 500 mg PO BID #6 tabs 05/15/24 [Rx Confirmed 07/06/24] levothyroxine 50 mcg tablet 50 mcg PO QAM #30 tabs 05/15/24 [Rx Confirmed 07/06/24] aspirin 81 mg tablet,delayed release 81 mg PO DAILY #30 tabs 05/28/24 [Rx Confirmed 07/06/24] atorvastatin 40 mg tablet 40 mg PO BEDTIME #90 tabs 05/28/24 [Rx Confirmed 07/06/24] dapagliflozin propanediol 10 mg tablet (Farxiga) 10 mg PO DAILY #90 tabs 05/28/24 [Rx Confirmed 07/06/24] furosemide 40 mg tablet 40 mg PO BID@08,16 #60 tabs 05/28/24 [Rx Confirmed 07/06/24] losartan 50 mg tablet 50 mg PO DAILY #30 tabs 06/15/24 [Rx Confirmed 07/06/24] Diabetic Shoes #1 ea 06/28/24 [Rx Confirmed 07/06/24] Discharge Plan Discharge Patient Disposition: Xfer Short-Term Hosp Condition: Stable Prescriptions: No Action atorvastatin 40 mg tablet 40 mg PO BEDTIME Qty: 90 0RF furosemide 40 mg tablet 40 mg PO BID@08,16 Qty: 60 0RF dapagliflozin propanediol [Farxiga] 10 mg tablet 10 mg PO DAILY Qty: 90 0RF aspirin 81 mg tablet,delayed release (DR/EC) 81 mg PO DAILY Qty: 30 0RF (DME) Diabetic Shoes See Rx Instructions .Route .MEDSUPPLY Qty: 1 0RF Rx Instructions: As directed by Home multivitamin with minerals Tablet 1 tab PO DAILY levothyroxine 50 mcg Tablet 50 mcg PO QAM Qty: 30 0RF ciprofloxacin HCl 500 mg tablet 500 mg PO BID Qty: 6 0RF losartan 50 mg tablet 50 mg PO DAILY Qty: 30 0RF Other Ambulatory Orders: DME: Wheelchair (Order) Location: None Selected Ordered By: Tin Tinoco Referrals: Nicole Gross FNP [Primary Care Provider] - TEMP,ED [Family Provider] - Patient Instructions: Opioid Safety Transfer Attestations Time Spent in Transfer Care: greater than 30 min Quality Metrics Clinical Quality Measures [ No reported AMI, CVA or VTE this stay] Coding Level of Care Code 27981 Total time (in minutes) for Discharge: 45 Diagnoses Orthostatic hypotension I95.1 Nonischemic congestive cardiomyopathy I42.0 Supine hypertension I10 Dyslipidemia E78.5 Atherosclerosis of [place] coronary artery of [place] heart without angina pectoris I25.10 Coronary Disease-Associated Artery/Lesion type: [place] artery LVEF <40% R93.1 Recurrent syncope R55 Type 2 diabetes mellitus with other specified complication, without long-term current use of insulin E11.69 Diabetes mellitus type: type 2 Diabetes mellitus residential insulin use: without residential use Diabetes mellitus complication status: with other specified complication Kidney disease N28.9 Left carotid bruit R09.89
[2024-07-09] MEDS: lidocaine 1% 5 ML in potassium chloride premix 100 ML 52.5 ML IV (23:41)
--- NOTE | 2024-07-10 05:22 | PC.NURSE ---
IV found out of arm, laying in patients bed. IV site bleeding, no hematoma present at this time. Wrapped site with 4x4s and Coban. Patient refusing new IV at this time. Educated patient on need for access during hospital stay.
--- NOTE | 2024-07-10 05:33 | PC.NURSE ---
[facility] called with bed number for patient. Spoke to INT, who set up ride with [facility]. Report called to receiving facility.
[2024-07-10] MEDS: levothyroxine 50 mcg Tablet PO (05:40)
[2024-07-10 06:00] VITALS: PULSE 57; BMI 23.1
[2024-07-10 06:06] VITALS: BP 187/85; PULSE 57; RESP 7
[2024-07-10 06:34] LABS: Glucose Point of Care 131 mg/dL (70-110)
[2024-07-10] MEDS: aspirin 81 mg EC Tablet PO (07:28)
[2024-07-10] MEDS: pyridostigmine 60 mg Tablet PO (07:29)
[2024-07-10] MEDS: pantoprazole DR 40 mg Tablet PO (07:29)
[2024-07-10 08:00] VITALS: BP 134/72; PULSE 49; RESP 15; TEMP 36.4; O2SAT 95
--- NOTE | 2024-07-10 09:22 | PC.NURSE ---
Patient being transferred to [facility] for pacemaker placement. Report called prior to shift change. Waiting transporation at this time.
--- NOTE | 2024-07-10 10:06 | PC.NURSE ---
Patient taken by yogesh nieto at this time.
--- NOTE | 2024-07-10 18:23 | P.MISC_ITS ---
Miscellaneous Note Note: Transfer was arranged and pending bed opening at [facility]. He discharged this morning. Discussed with cardiology. Please refer to transfer summary from 07/09.
== END 2024-07-10 10:07 | disposition short-term general hospital (02) | DRG 683 ==
LOC: ER 13:55 → CSU 16:19
PROVIDERS: Admitting Provider Internal Medicine; Emergency Provider Family Medicine; PCP Nurse Practitioner; Visit Provider Internal Medicine
DX: N17.9 Acute kidney failure, unspecified (principal); I13.0 Hypertensive heart and chronic kidney disease with heart failure and stage 1 through stage 4 chronic kidney disease, or unspecified chronic kidney disease; I42.0 Dilated cardiomyopathy; I95.1 Orthostatic hypotension; E78.5 Hyperlipidemia, unspecified; I25.10 Atherosclerotic heart disease of native coronary artery without angina pectoris; E11.22 Type 2 diabetes mellitus with diabetic chronic kidney disease; N18.9 Chronic kidney disease, unspecified; I50.9 Heart failure, unspecified; R09.89 Other specified symptoms and signs involving the circulatory and respiratory systems; S22.32XD Fracture of one rib, left side, subsequent encounter for fracture with routine healing; E03.9 Hypothyroidism, unspecified; D64.9 Anemia, unspecified; I51.7 Cardiomegaly; K44.9 Diaphragmatic hernia without obstruction or gangrene; R00.1 Bradycardia, unspecified; Z79.84 Long term (current) use of oral hypoglycemic drugs; Z79.82 Long term (current) use of aspirin; W19.XXXD Unspecified fall, subsequent encounter
CPT/HCPCS: 36415; 36416; 51702; 70450; 70486; 71045; 72125; 80048; 80053; 81001; 82962; 83735; 84443; 84484; 85025; 93005; 93308; 93880; 96372; 99232; 99233; 99254; 99285; G0378; J1815; J3480; P9046

== ENCOUNTER → 2024-08-02 08:48 | Outpatient (BNVA) | payer BC, MEDICAID, SELFPAY | PROVIDERS: PCP Nurse Practitioner; Visit Provider Nurse Practitioner | DX: N28.9 Disorder of kidney and ureter, unspecified (principal); N17.9 Acute kidney failure, unspecified | CPT/HCPCS: 80069; 82306; 82310; 82570; 83550; 83970; 84156; 85025 ==

== ENCOUNTER → 2024-08-31 10:25 | Outpatient (BNVA) | payer BC, MEDICAID, SELFPAY | PROVIDERS: PCP Nurse Practitioner; Visit Provider Nurse Practitioner | DX: N28.9 Disorder of kidney and ureter, unspecified (principal); E11.69 Type 2 diabetes mellitus with other specified complication | CPT/HCPCS: 82306; 82728; 83036; 83550; 84466 ==

== ENCOUNTER → 2024-10-11 09:00 | Outpatient (BNVA) | payer BC, MEDICAID, SELFPAY | PROVIDERS: PCP Nurse Practitioner; Referring Provider Nurse Practitioner; Visit Provider Nurse Practitioner | DX: E55.9 Vitamin D deficiency, unspecified (principal); E61.1 Iron deficiency | CPT/HCPCS: 82728; 83550 ==

== ENCOUNTER → 2024-10-14 13:48 | Outpatient (BNVA) | payer BC, MEDICAID, SELFPAY | PROVIDERS: PCP Nurse Practitioner; Referring Provider Nurse Practitioner; Visit Provider Nurse Practitioner | DX: N28.9 Disorder of kidney and ureter, unspecified (principal); E55.9 Vitamin D deficiency, unspecified; E61.1 Iron deficiency | CPT/HCPCS: 80069; 82306; 82310; 82570; 83540; 83970; 84156; 85025 ==

== ENCOUNTER → 2024-10-28 09:09 | Outpatient (BNVA) | payer BC, MEDICAID, SELFPAY | PROVIDERS: PCP Nurse Practitioner; Visit Provider Nurse Practitioner | DX: N28.9 Disorder of kidney and ureter, unspecified (principal) | CPT/HCPCS: 80048 ==

== ENCOUNTER → 2025-02-22 09:44 | Outpatient (BNVA) | payer BC, MEDICAID, SELFPAY | PROVIDERS: PCP Nurse Practitioner; Visit Provider Family Medicine | DX: N28.9 Disorder of kidney and ureter, unspecified (principal) | CPT/HCPCS: 80048; 80069; 82043; 85025 ==

== ENCOUNTER 2025-02-25 18:23 | Emergency (ER) | payer BC, MEDICAID, SELFPAY ==
[2025-02-25 18:28] VITALS: BP 199/91; PULSE 67; RESP 18; TEMP 36.7; O2SAT 99; BMI 24.5
--- OUTSIDE RECORDS SUMMARY | 2025-02-25 18:30 | XMS_ITS | Clinical Summary ---
Author Organization [facility] Facility Address [address] [address] Care Team Providers Care Curb Hop Name Role Phone Nicole Gross Primary Care Provider [phone] Allergies Active Allergy Reactions Criticality Noted Date Comments Bee Venom Anaphylaxis High 06/16/2024 Medications Aspirin Low Dose 81 MG EC tablet Take 81 mg by mouth 1 (one) time each day 05/29/2024 Active furosemide (LASIX) 40 MG tablet Take 40 mg by mouth in the morning and 40 mg in the evening. 05/29/2024 Active Empagliflozin (JARDIANCE PO) Take 10 mg by mouth 1 (one) time each day Active CARVEDILOL PO Take by mouth Active AMLODIPINE BESYLATE PO Take 5 mg by mouth 1 (one) time each day Active Multiple Vitamin (multivitamin) capsule Take 1 capsule by mouth 1 (one) time each day Active Ferrous Sulfate (Iron) 325 (65 Fe) MG tablet Take 325 mg by mouth every other day Active Cholecalciferol (Vitamin D) 50 MCG (2000 UT) capsule Take by mouth 1 (one) time each day Active sacubitril-valsa rtan (Entresto) 24-26 MG per tabletIndication s:Stage 3b chronic kidney disease (HCC),Persistent proteinuria Take 1 tablet by mouth in the morning and 1 tablet in the evening. For high blood pressure, your heart and protein in urine. 60 tablet 12 10/21/2024 Active Active Problems Problem Noted Date Diagnosed Date Chronic kidney disease stage 3B 10/21/2024 Hypertensive heart and chron ic kidney disease stage 3 with heart failure 10/21/2024 Persistent proteinuria 10/21/2024 Anemia in chronic kidney disease 10/21/2024 Secondary hyperparathyroidism of renal origin Vitamin D deficiency 10/21/2024 Encounters Date Type Department Care Team Description 02/17/2025 Telephone [facility] [address] [facility] [address] [place] [address] Xavier Garrison MD from Last 3 Months Family History Relation Status Comments Brother Alive Father Mother Social History Tobacco Use Types Packs/Day Years Used Date Smoking Tobacco: Never Passive Smoke Exposure: Never Smokeless Tobacco: Never Alcohol Use Standard Drinks/Week Comments Not Currently 0 (1 standard drink = 0.6 oz pur e alcohol) Sex and Gender Information Value Date Recorded Sex Assigned at Not on file Legal Sex Male 10:18 AM EST Gender Identity Not on file Sexual Orientation Not on file Last Filed Vital Signs Vital Sign Reading Time Taken Comments Blood Pressure 188/98 10/21/2024 11:48 AM CDT Pulse 69 10/21/2024 11:00 AM CDT Temperature - - Respiratory Rate - - Oxygen Saturation 99% 10/21/2024 11:00 AM CDT Inhaled Oxygen Concentration - - Weight 78.5 kg (173 lb) 10/21/2024 11:00 AM CDT Height 180.3 cm (5' 11 ) 10/21/2024 11:00 AM CDT Body Mass Index 24.13 10/21/2024 11:00 AM CDT Plan of Treatment Upcoming Encounters Date Type Department Care Team (Late st Contact Info) Description 03/02/2025 9:30 AM CDT Office Visit [facility] [address] [place] [address] Nieves Badillo NP [address] [facility] [address] [place] [address] Health Maintenance Due Date Last Done Comments Pneumococcal Vaccine: 50+ Ye ars (1 of 2 - PCV) 11/26/1982 Colorectal Cancer Screening: Annual FOBT 11/26/2012 Colorectal Cancer Screening: Colonoscopy 11/26/2012 Colorectal Cancer Screening: Sigmoidoscopy 11/26/2012 Diabetes: Hemoglobin A1C 07/28/2024 Diabetes: Ophthalmology Exam 07/28/2024 Diabetes: Pedal Pulse Checked 07/28/2024 Diabetes: Sensory Foot Exam 07/28/2024 Diabetes: Visual Foot Exam 07/28/2024 Influenza Vaccine (#1) 2025 Hepatitis B Vaccine Aged Out No longe r eligible based on patient's age to complete this topic Insurance [employer] ([id number]) Care Teams Curb Hop Relationship Specialty Start Date End Date Nicole Gross FNP [address] [place] [id number] PCP - General Nutrition 07/20/24
--- OUTSIDE RECORDS SUMMARY | 2025-02-25 18:30 | XMS_ITS | Clinical Summary ---
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
--- OUTSIDE RECORDS SUMMARY | 2025-02-25 18:30 | XMS_ITS | Encounter Summary ---
Author Organization [facility], [facility] Address [address] [place] [address] Phone Care Team Providers Care Mine Engineering Manager Name Role Phone Nicole Gross Primary Care Provider [phone] Encounter Details Date Type Department Care Team (Late st Contact Info) Description 05/17/2024 Orders Only [facility] [address] [place] [address] Nephrotic syndrome with focal and segmental glomerular lesions; Renal insufficiency Social History Tobacco Use Types Packs/Day Years Used Date Smoking Tobacco: Never Assessed Sex and Gender Information Value Date Recorded Sex Assigned at Not on file Legal Sex Male 10:18 AM EST Gender Identity Not on file Sexual Orientation Not on file documented as of this encounter Plan of Treatment Upcoming Encounters Date Type Department Care Team (Late st Contact Info) Description 03/02/2025 9:30 AM CDT Office Visit [facility] [address] [place], [place] [address] Nieves Badillo NP [address] [place] [address] documented as of this encounter Visit Diagnoses Diagnosis Nephrotic syndrome with focal and segmental glomerular lesions Renal insufficiency documented in this encounter Care Teams Mine Engineering Manager Relationship Specialty Start Date End Date Nicole Gross FNP [address] [place] [id number] PCP - General Nutrition 07/20/24 documented as of this encounter
--- NOTE | 2025-02-25 18:35 | XRR_ITS ---
PROCEDURE INFORMATION: Exam: XR Left Knee Exam date and time: 02/25/2025 6:49 PM Age: 59 years old Clinical indication: Pain; Knee; Left; Prior surgery; Surgery date: 6+ months; Surgery type: Meniscus repair x 3; Additional info: Lt knee pain after twisting injury today; HX of lt knee meniscus repair x 3 (1986) TECHNIQUE: Imaging protocol: Radiologic exam of the left knee. Views: 3 views. COMPARISON: No relevant prior studies available. FINDINGS: Bones/joints: Moderate suprapatellar joint effusion. No definitive acute fracture. No dislocation. Soft tissues: Mild soft tissue swelling along the medial aspect of the left knee. XR/XR knee LT 3V* [id number] IMPRESSION: Moderate suprapatellar joint effusion with soft tissue swelling along the medial aspect of the left knee. There is no discernible acute fracture or dislocation. Follow-up imaging can be obtained in 7-14 days if clinical concern for fracture persists.
--- NOTE | 2025-02-25 19:55 | W.ED.EXTPRO ---
Documented by User: SHIRA Gutierrez 02/25/25 20:47 HPI - Extremity Problem General: Chief complaint: Extremity Injury, Lower Stated complaint: knee pain Time Seen by Provider: 02/25/25 18:42 Source: patient Mode of arrival: wheelchair Limitations: no limitations History of Present Illness: Patient is a 59-year-old male who presents to the emergency department planing of left knee pain couple of hours prior to arrival. Patient states that he twisted his knee while getting out of his truck, causing him to fall. He has abrasion to his right schulz. No other injuries with the fall. However his left knee has steadily gotten more edematous and now it is too painful to bear weight. He reportedly has had the left knee surgically repaired in the past. No distal neurovascular symptoms reported. MD Complaint: joint swelling and joint pain Onset (ago): hour(s) Pain Consistency: constant Location: left and knee Exacerbating factors: range of motion, weight bearing and walking Associated symptoms: Deny chest pain, fever(s) or rash Related Data Home Medications ?Medication ?Instructions ?Recorded ?Confirmed multivitamin with minerals 1 tab PO DAILY 05/05/24 08/31/24 furosemide 40 mg tablet 40 mg PO DAILY PRN 07/28/24 08/31/24 Previous Rx's ?Medication ?Instructions ?Recorded aspirin 81 mg tablet,delayed 81 mg PO DAILY #30 tabs 05/28/24 release atorvastatin 40 mg tablet 40 mg PO BEDTIME #90 tabs 05/28/24 Diabetic Shoes #1 ea 06/28/24 amlodipine 5 mg tablet 5 mg PO DAILY #30 tabs 11/10/24 empagliflozin 10 mg tablet 10 mg PO DAILY #30 tabs 11/10/24 (Jardiance) carvedilol 3.125 mg tablet 3.125 mg PO BID #60 tabs 12/07/24 Allergies Allergy/AdvReac Type Severity Reaction Status Date / Time bee venom protein (honey bee) Allergy ALGY-Swell Verified 02/25/25 18:31 Lip/Tongue/Throat Review of Systems General: Reports: 10 or more systems reviewed and unremarkable except in HPI and below Const: Denies: fever(s) or chills Card: Denies: chest pain Resp: Denies: dyspnea or productive cough GI: Denies: abdominal pain, nausea, vomiting or diarrhea : Denies: flank pain Musc: Reports: joint pain (Left knee), joint swelling (Left knee) and limited range of motion (Left knee); Denies: neck pain, back pain, extremity pain, extremity swelling, joint redness, joint warmth or muscle weakness Skin/Breast: Denies: rash Neuro: Denies: headache(s), numbness in extremities or weakness in extremities PFSH ED PFSH: Medical History Fracture, ribs Syncope due to orthostatic hypotension Diabetes mellitus LVEF <40% Kidney disease CHF (congestive heart failure) Proteinuria Hypertension Social History Smoking and tobacco/nicotine status: never used tobacco/nicotine Physical Exam Const: COMMON NORMALS: no acute distress, patient oriented x3, no limitations, healthy appearing, alert and well nourished HENMT: COMMON NORMALS: normocephalic and atraumatic HEAD & SCALP: normocephalic and atraumatic Neck/C-Spine: COMMON NORMALS: full ROM, supple and no meningeal signs Resp: COMMON NORMALS: normal respiratory effort, No use of accessory muscles and clear to auscultation bilaterally AUSCULTATION: clear to auscultation bilaterally Cardio: COMMON NORMALS: regular rate and regular rhythm RATE: regular rate RHYTHM: regular rhythm Extremity: NARRATIVE EXTREMITY EXAM: The left knee joint is diffusely swollen. Tender to palpation diffusely as well. Unable to assess gait. Range of motion at the knee limited with flexion and extension secondary to the pain and swelling. Distal neurovascular exam is unremarkable. Neuro: COMMON NORMALS: patient oriented x3, moves all extremities, no focal motor deficits and no sensory deficits noted SENSORIUM/ORIENTATION: Yes alert MENINGEAL SIGNS: Yes no meningeal signs Skin: COMMON NORMALS: no rashes or lesions noted GENERAL SKIN EXAM: no rashes or lesions noted Course Vital Signs: Vital signs: Vital Signs Temperature 98.1 F 02/25/25 18:28 Pulse Rate 74 02/25/25 20:42 Respiratory Rate 20 H 02/25/25 20:22 Blood Pressure 190/78 02/25/25 20:42 Pulse Oximetry 97 02/25/25 20:42 MDM - Extremity (Nontraumatic) Medical Decision Making Patient presented for left knee injury, he injured it while getting out of his truck where it twisted on him and he has now struggling with ambulation secondary to the pain. On exam there is quite a bit of swelling and tenderness about the left knee joint diffusely, unable to assess the gait secondary to his pain. Range of motion also limited due to his pain and swelling. X-ray showing moderate suprapatellar effusion with no obvious fracture, though I do have concern for internal derangement and he will be put in immobilizer made nonweightbearing with crutches, and referred to orthopedics for reevaluation next week. He is given 1 oxycodone here for pain, encouraged to enact further conservative therapy at home and all other questions and concerns addressed. Lab Data Radiology Impressions Knee X-Ray 02/25/25 18:35 IMPRESSION: Moderate suprapatellar joint effusion with soft tissue swelling along the medial aspect of the left knee. There is no discernible acute fracture or dislocation. Follow-up imaging can be obtained in 7-14 days if clinical concern for fracture persists. All radiology interpretation(s) finalized by discharge Discharge Plan Discharge Patient Disposition: Home Clinical Impression: Effusion of knee joint, left Left knee sprain Qualifiers: Encounter type: initial encounter Involved ligament of knee: unspecified ligament Qualified Code(s): S83.92XA - Sprain of unspecified site of left knee, initial encounter Condition: Stable Prescriptions: No Action atorvastatin 40 mg tablet 40 mg PO BEDTIME Qty: 90 0RF aspirin 81 mg tablet,delayed release (DR/EC) 81 mg PO DAILY Qty: 30 0RF (DME) Diabetic Shoes See Rx Instructions .Route .MEDSUPPLY Qty: 1 0RF Rx Instructions: As directed by Home furosemide 40 mg tablet 40 mg PO DAILY PRN amlodipine 5 mg tablet 5 mg PO DAILY Qty: 30 6RF Jardiance 10 mg tablet 10 mg PO DAILY Qty: 30 3RF carvedilol 3.125 mg tablet 3.125 mg PO BID Qty: 60 6RF Rx Instructions: must administer with a meal/food multivitamin with minerals Tablet 1 tab PO DAILY Discharge Orders: Discharge ED (Routine); Ordered 02/25/25 Ordered By: Fernandez May Referrals: Nicole Gross FNP [Primary Care Provider, Nurse Practitioner] Patient Instructions: Patient Portal & Kranthi Instructions Activity Restrictions/Additional Instructions: Knee Injury Discharge Instructions Diagnosis/Disposition: 59-year-old male with left knee injury, large effusion on X-ray, no fracture. Suspicion for internal derangement (e.g., meniscal or ligamentous injury). Placed in knee immobilizer, non-weightbearing with crutches, pending orthopedic follow-up. Home Management: - Immobilization & Weightbearing: Maintain knee immobilizer at all times except for hygiene. Remain strictly non-weightbearing on the affected limb until evaluated by orthopedics. Use crutches for ambulation. - Pain Control: Due to cardiac history, avoid NSAIDs (including topical formulations). - Acetaminophen is recommended for pain relief, up to 3,000 mg/day in divided doses, unless contraindicated by liver disease or heavy alcohol use. - Opioids are rarely indicated and not recommended for routine use. - RICE Protocol: - Rest: Avoid activities that provoke pain, especially deep knee flexion or weightbearing. - Ice: Apply ice packs to the knee for 15?20 minutes every 2?3 hours while awake for the first 48?72 hours. - Compression: Use elastic bandage if tolerated, but do not constrict circulation. - Elevation: Elevate the leg above heart level when possible to reduce swelling. - Activity Modification: - Avoid any activities that cause pain or instability. - Do not attempt to bear weight, squat, or twist the knee. - Physical Therapy: - Early referral to physical therapy is recommended for rehabilitation-based care, typically after orthopedic evaluation. - Initial focus is on pain modulation, inflammatory control, and judaism of range of motion as tolerated. Follow-Up: - Orthopedic Evaluation: - Attend scheduled orthopedic appointment next week for further assessment and management, including consideration of MRI if indicated. Return Precautions: - Seek immediate care for any of the following: - Increasing pain, swelling, or redness of the knee. - Fever or chills. - Inability to move the knee or sudden loss of ability to bear weight. - Numbness, tingling, or weakness in the leg. - Signs of deep vein thrombosis (calf pain, swelling, warmth). - Any new or concerning symptoms. Additional Notes: - Medication Safety: - Do not use NSAIDs due to cardiac history. - Acetaminophen should be used with caution in patients with liver disease or heavy alcohol use. - General Advice: - Maintain adequate hydration and nutrition. - Monitor for any changes in symptoms and report promptly. Summary: Nonoperative management with immobilization, non-weightbearing, acetaminophen for pain, and RICE is supported by current consensus and guidelines for suspected internal derangement without fracture. Early orthopedic follow-up is essential for definitive diagnosis and management. Print Language: [place] Islander Coding Level of Care Code ED Retail Manager for Chg Fwd Documented by User: Eddie Newton, DO 02/25/25 22:52 HPI - Extremity Problem General: Chief complaint: Extremity Injury, Lower Stated complaint: knee pain Time Seen by Provider: 02/25/25 18:42 Related Data Home Medications ?Medication ?Instructions ?Recorded ?Confirmed multivitamin with minerals 1 tab PO DAILY 05/05/24 08/31/24 furosemide 40 mg tablet 40 mg PO DAILY PRN 07/28/24 08/31/24 Previous Rx's ?Medication ?Instructions ?Recorded aspirin 81 mg tablet,delayed 81 mg PO DAILY #30 tabs 05/28/24 release atorvastatin 40 mg tablet 40 mg PO BEDTIME #90 tabs 05/28/24 Diabetic Shoes #1 ea 06/28/24 amlodipine 5 mg tablet 5 mg PO DAILY #30 tabs 11/10/24 empagliflozin 10 mg tablet 10 mg PO DAILY #30 tabs 11/10/24 (Jardiance) carvedilol 3.125 mg tablet 3.125 mg PO BID #60 tabs 12/07/24 Allergies Allergy/AdvReac Type Severity Reaction Status Date / Time bee venom protein (honey bee) Allergy ALGY-Swell Verified 02/25/25 18:31 Lip/Tongue/Throat PFSH ED PFSH: Medical History Fracture, ribs Syncope due to orthostatic hypotension Diabetes mellitus LVEF <40% Kidney disease CHF (congestive heart failure) Proteinuria Hypertension Social History Smoking and tobacco/nicotine status: never used tobacco/nicotine Course Vital Signs: Vital signs: Vital Signs Temperature 98.1 F 02/25/25 18:28 Pulse Rate 74 02/25/25 20:42 Respiratory Rate 20 H 02/25/25 20:22 Blood Pressure 190/78 02/25/25 20:42 Pulse Oximetry 97 02/25/25 20:42 MDM - Extremity (Nontraumatic) Medical Decision Making Patient presented for left knee injury, he injured it while getting out of his truck where it twisted on him and he has now struggling with ambulation secondary to the pain. On exam there is quite a bit of swelling and tenderness about the left knee joint diffusely, unable to assess the gait secondary to his pain. Range of motion also limited due to his pain and swelling. X-ray showing moderate suprapatellar effusion with no obvious fracture, though I do have concern for internal derangement and he will be put in immobilizer made nonweightbearing with crutches, and referred to orthopedics for reevaluation next week. He is given 1 oxycodone here for pain, encouraged to enact further conservative therapy at home and all other questions and concerns addressed. This patient was originally seen by Mr. Yadira PA-C. I agree with his history, evaluation, and treatment. Lab Data Radiology Impressions Knee X-Ray 02/25/25 18:35 IMPRESSION: Moderate suprapatellar joint effusion with soft tissue swelling along the medial aspect of the left knee. There is no discernible acute fracture or dislocation. Follow-up imaging can be obtained in 7-14 days if clinical concern for fracture persists. Discharge Plan Discharge Patient Disposition: Home Clinical Impression: Effusion of knee joint, left Left knee sprain Qualifiers: Encounter type: initial encounter Involved ligament of knee: unspecified ligament Qualified Code(s): S83.92XA - Sprain of unspecified site of left knee, initial encounter Condition: Stable Prescriptions: No Action atorvastatin 40 mg tablet 40 mg PO BEDTIME Qty: 90 0RF aspirin 81 mg tablet,delayed release (DR/EC) 81 mg PO DAILY Qty: 30 0RF (DME) Diabetic Shoes See Rx Instructions .Route .MEDSUPPLY Qty: 1 0RF Rx Instructions: As directed by Home furosemide 40 mg tablet 40 mg PO DAILY PRN amlodipine 5 mg tablet 5 mg PO DAILY Qty: 30 6RF Jardiance 10 mg tablet 10 mg PO DAILY Qty: 30 3RF carvedilol 3.125 mg tablet 3.125 mg PO BID Qty: 60 6RF Rx Instructions: must administer with a meal/food multivitamin with minerals Tablet 1 tab PO DAILY Discharge Orders: Discharge ED (Routine); Ordered 02/25/25 Ordered By: Fernandez Mya Referrals: Nicole Gross FNP [Primary Care Provider, Nurse Practitioner] Patient Instructions: Patient Portal & Kranthi Instructions Activity Restrictions/Additional Instructions: Knee Injury Discharge Instructions Diagnosis/Disposition: 59-year-old male with left knee injury, large effusion on X-ray, no fracture. Suspicion for internal derangement (e.g., meniscal or ligamentous injury). Placed in knee immobilizer, non-weightbearing with crutches, pending orthopedic follow-up. Home Management: - Immobilization & Weightbearing: Maintain knee immobilizer at all times except for hygiene. Remain strictly non-weightbearing on the affected limb until evaluated by orthopedics. Use crutches for ambulation. - Pain Control: Due to cardiac history, avoid NSAIDs (including topical formulations). - Acetaminophen is recommended for pain relief, up to 3,000 mg/day in divided doses, unless contraindicated by liver disease or heavy alcohol use. - Opioids are rarely indicated and not recommended for routine use. - RICE Protocol: - Rest: Avoid activities that provoke pain, especially deep knee flexion or weightbearing. - Ice: Apply ice packs to the knee for 15?20 minutes every 2?3 hours while awake for the first 48?72 hours. - Compression: Use elastic bandage if tolerated, but do not constrict circulation. - Elevation: Elevate the leg above heart level when possible to reduce swelling. - Activity Modification: - Avoid any activities that cause pain or instability. - Do not attempt to bear weight, squat, or twist the knee. - Physical Therapy: - Early referral to physical therapy is recommended for rehabilitation-based care, typically after orthopedic evaluation. - Initial focus is on pain modulation, inflammatory control, and judaism of range of motion as tolerated. Follow-Up: - Orthopedic Evaluation: - Attend scheduled orthopedic appointment next week for further assessment and management, including consideration of MRI if indicated. Return Precautions: - Seek immediate care for any of the following: - Increasing pain, swelling, or redness of the knee. - Fever or chills. - Inability to move the knee or sudden loss of ability to bear weight. - Numbness, tingling, or weakness in the leg. - Signs of deep vein thrombosis (calf pain, swelling, warmth). - Any new or concerning symptoms. Additional Notes: - Medication Safety: - Do not use NSAIDs due to cardiac history. - Acetaminophen should be used with caution in patients with liver disease or heavy alcohol use. - General Advice: - Maintain adequate hydration and nutrition. - Monitor for any changes in symptoms and report promptly. Summary: Nonoperative management with immobilization, non-weightbearing, acetaminophen for pain, and RICE is supported by current consensus and guidelines for suspected internal derangement without fracture. Early orthopedic follow-up is essential for definitive diagnosis and management. 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
[2025-02-25 20:22] VITALS: RESP 20
[2025-02-25] MEDS: oxyCODONE-APAP 5-325 mg Tablet 1 TAB PO (20:22)
[2025-02-25 20:42] VITALS: BP 190/78; PULSE 74; O2SAT 97
--- NOTE | 2025-02-28 10:07 | DCPLANNER ---
messaged ortho for er f/u
== END 2025-02-25 20:43 | disposition home or self-care (01) ==
PROVIDERS: Emergency Provider Physician Assistant; PCP Nurse Practitioner
DX: S83.92XA Sprain of unspecified site of left knee, initial encounter (principal); Z79.82 Long term (current) use of aspirin; E11.9 Type 2 diabetes mellitus without complications; I11.0 Hypertensive heart disease with heart failure; I50.9 Heart failure, unspecified; V58.4XXA Person boarding or alighting a pick-up truck or van injured in noncollision transport accident, initial encounter
CPT/HCPCS: 73562; 99283; J9999

== ENCOUNTER → 2025-03-02 10:03 | Outpatient (BNVA) | payer BC, MEDICAID, SELFPAY | PROVIDERS: PCP Nurse Practitioner; Visit Provider Nurse Practitioner | DX: E11.69 Type 2 diabetes mellitus with other specified complication (principal) | CPT/HCPCS: 83036 ==

== ENCOUNTER 2025-04-08 07:29 | Outpatient (CLI) | payer BC, MEDICAID, SELFPAY ==
--- NOTE | 2025-04-08 07:45 | USCV_ITS ---
Hector Whitaker Age: 59 Gender: M : 1965 Exam Date: 04/08/2025 07:43 Ordering Phys: Uriel Shaffer MD ([email or web address]) Technologist: Sen Bain [place]am [place] [facility] [place]: assessment of improvement of EF BP: 151 / 90 HR: 66 Rhythm: Other Technical Quality: Adequate MEASUREMENTS (Male / Female) Normal Values 2D ECHO LV Diastolic Diameter PLAX 5.3 cm 4.2 - 5.9 / 3.9 - 5.3 cm IVS Diastolic Thickness 0.9 cm 0.6 - 1.0 / 0.6 - 0.9 cm IVS Systolic Thickness 1.3 cm LVPW Diastolic Thickness 1.5 cm 0.6 - 1.0 / 0.6 - 0.9 cm LVPW Systolic Thickness 1.6 cm LVOT Diameter 2.3 cm LV Ejection Fraction 2D Teich 38.2 % LV Ejection Fraction MOD 4C 42.4 % LV Ejection Fraction MOD 2C 41.3 % LV Ejection Fraction 2C AL 40.1 % LA Diameter 3.8 cm RA Systolic Volume 4C AL 33.8 ml RA Systolic Volume 4C MOD 31.3 ml LA Sys Volume AL 70.8 cm cubed LA Sys Volume Index AL 35.3 cm cubed/m squared Aorta at Sinotubular Diameter 2.8 cm IVC Diameter 1.6 cm M-MODE LA Ao Ratio MM 1.5 AV Cusp Separation MM 2.0 cm DOPPLER AV Peak Velocity 185.3 cm/s LVOT Peak Velocity 78.0 cm/s AV Area Cont Eq vti 2.0 cm squared AV Area Cont Eq pk 1.7 cm squared MV Peak Velocity 78.0 cm/s MV Area PHT 4.3 cm squared Mitral E to A Ratio 1.7 TV Peak Velocity 432.5 cm/s TR Peak Velocity 571.0 cm/s TR Peak Gradient 130.4 mmHg TR Mean Velocity 407.0 cm/s TR Mean Gradient 78.6 mmHg TR Velocity Time Integral 156.0 cm PV Peak Velocity 84.3 cm/s RV Ejection Time 0.3 s FINDINGS Left Ventricle Moderately increased left ventricular cavity size. Moderately decreased left ventricular systolic function. Global left ventricular hypokinesis. Left ventricular ejection fraction is estimated at 42 %. Grade II/IV diastolic dysfunction, moderately elevated filling pressures. Right Ventricle Normal right ventricular size and systolic function. Catheter/pacemaker wire visualized in the right ventricle. Right Atrium Normal right atrial size. Catheter/pacemaker wire in the right atrial cavity. Left Atrium Moderately increased left atrial size. IA Septum Normal appearance of the interatrial septum. Mitral Valve Normal mitral valve structure. No mitral valve stenosis, trace regurgitation. Aortic Valve Normal aortic valve structure. No aortic valve stenosis , trace regurgitation. Tricuspid Valve Normal tricuspid valve structure. No tricuspid valve stenosis or regurgitation. Normal pulmonary pressure. Pulmonic Valve Normal pulmonic valve structure. No pulmonic valve stenosis or regurgitation. Pericardium No pericardial effusion. Aorta Normal diameter of the aortic root and ascending thoracic aorta. IVC Normal IVC diameter. CONCLUSIONS Moderately increased left ventricular cavity size. Moderately decreased left ventricular systolic function. Global left ventricular hypokinesis. Left ventricular ejection fraction is estimated at 42 %. Grade II/IV diastolic dysfunction, moderately elevated filling pressures. Normal right ventricular size and systolic function. Catheter/pacemaker wire visualized in the right ventricle. Moderately increased left atrial size. There is no pericardial effusion. No significant valvular abnormalities. Right atrial pressure is around 5 mm of mercury. Uriel Shaffer MD (Electronically Signed) Final Date: 14 April 2025 20:49 S
== END 2025-04-08 07:30 | disposition home or self-care (01) ==
LOC: RAD 07:30
PROVIDERS: PCP Nurse Practitioner; Visit Provider Internal Medicine Cardiovascular Disease
DX: R93.1 Abnormal findings on diagnostic imaging of heart and coronary circulation (principal); I42.9 Cardiomyopathy, unspecified; I51.89 Other ill-defined heart diseases; Z95.0 Presence of cardiac pacemaker; I51.7 Cardiomegaly
CPT/HCPCS: 93306

== ENCOUNTER → 2025-04-19 09:32 | Outpatient (BNVA) | payer BC, MEDICAID, SELFPAY | PROVIDERS: PCP Nurse Practitioner; Referring Provider Nurse Practitioner; Visit Provider Nurse Practitioner | DX: N28.9 Disorder of kidney and ureter, unspecified (principal) | CPT/HCPCS: 80069; 82043; 82310; 83970; 85025 ==